=== PATIENT | male | born 1960 | race Caucasian/White ===

== ENCOUNTER 2019-03-13 06:56 | Day surgery (SDC) | payer MEDICARE ==
--- OUTSIDE RECORDS SUMMARY | 2019-03-13 07:07 | XMS REPORT | Continuity of Care Document ---
:1960 Author Organization [facility] Care Team Providers Name Role Phone [facility] Unavailable Unavailable Problems Problem Status Onset Classification Date Comments Source Date Reported Right sided 09/14/19 09/17/2018 abdominal pain 19 [place] Abdominal 09/14/19 09/17/2018 distension 19 [place] WOUND CARE Active 09/14/19 19 [place] Other specified 03/28/20 10/07/2018 pleural 18 [place] conditions Cellulitis of 03/24/20 10/05/2018 [facility] abdominal wall 18 Cellulitis 03/18/20 10/05/2018 [place] 18 ABCESS Active 03/18/20 [facility] [address] SENT Active 03/18/20 18 [place] LOCULATED PLEURAL Active 03/18/20 EFFUSION 18 [place] TAPPED Active 02/02/20 [facility] [place] DECOMPENSATED Active 02/02/20 HEPATIC 18 [facility] CIRRHOSIS, CIRRHOS ASCITES SOB Active 03/22/20 [facility] [address] LOWER LOBE Active 03/22/20 [facility] PNEUMONIA [address] [place] UNSPECIFIED Active 10/16/19 [facility] CIRRHOSIS OF [address] [place] [address] B18.2 - CHRONIC Active 09/30/19 [facility] VIRAL HEPATITIS C 16 [facility] OPID [place] HEP C Active 09/26/[address] F/U Active 09/26/[address] TWO WKS F/U Active 09/12/[address] BDDC - CLINIC Active 06/04/20 [facility] FOLLOW [facility] HOSPITAL FOLLOW Active 05/22/20 [facility] BEDDED Active 05/22/20 [facility] OUTPATIENT/THERAP [address] [place] [address] [facility] Center SPONTANEOUS Active 05/07/20 [facility] PARACENTESIS [address] [place] [address] Ascites Resolved Problem 10/07/2018 [facility] Cirrhosis of Active Problem 10/07/2018 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 varices [facility], [place],M EDDC Family history of Active Problem 10/07/2018 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 encephalopathy [facility], [place],M EDDC Hepatitis-C Active Problem 10/07/2018 [facility], [place],[facility] EDMO Obesity Active Problem 10/07/2018 [facility], [place] Peripheral edema Active Problem 10/07/2018 [facility], [place] Other mechanical 10/07/2018 complication of [place] other cardiac and vascular devices and implants, initial encounter Acute kidney 10/07/2018 failure, [place] unspecified Other ascites 10/07/2018 [place] Esophageal 10/07/2018 varices without [place] bleeding Portal 10/07/2018 hypertension [place] Body mass index 10/07/2018 40.0-44.9, adult [place] Unspecified viral 10/07/2018 hepatitis C [place], without hepatic [place] coma Other cirrhosis 10/07/2018 of liver [place] Unspecified 10/07/2018 cirrhosis of [place], liver [place] Rash and other 10/07/2018 nonspecific skin [place] eruption Awaiting organ 10/07/2018 transplant status [place] Hypertensive 10/07/2018 chronic kidney [place] disease with stage 1 through stage 4 chronic kidney disease, or unspecified chronic kidney disease Chronic kidney 10/07/2018 disease, stage 2 [place] Nicotine 10/07/2018 dependence, [place], cigarettes, [place] uncomplicated Gastric varices 10/07/2018 [place] Splenomegaly, not 10/07/2018 elsewhere [place] classified Diaphragmatic 10/07/2018 hernia without [place] obstruction or gangrene Morbid obesity 10/07/2018 due to excess [place] calories FOOD/VOMIT Active 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, Stop date: 09/14/18 9:39:00 CSTNotes: SEE RT DOCUMENTATION (Same as: Proventil) Acetaminophen 300 1 tab, PO, No Longer MG / Codeine Q6H, PRN Pain, Active 2017 [facility] Phosphate 30 MG X 7 day, # 28 Oral Tablet tab, 0 [Tylenol with Refill(s), Codeine #3] called to pharmacy Nystatin [id number] 1 appl, TOP, Active UNT/ML / TID, # 30 gm, 2017 [facility] Triamcinolone 0 Refill(s), Acetonide 1 MG/ML Pharmacy: [facility] [place] [address] Furosemide 40 MG 80 mg, 2 tab, Inactive Oral Tablet Route: PO, 2017 [facility] [Lasix] Drug form: TAB, Daily, Dosing Weight 143.182, kg, Start date: 03/20/18 14:00:00 CDT, Duration: 30 day, Stop date: 04/19/18 9:00:00 CDTNotes: (Same as: Lasix) May cause GI upset. Give with food or milk. Spironolactone 100 mg, 2 tab, Inactive Route: PO, 2017 [facility] Drug form: TAB, Daily, Dosing Weight 143.182, kg, Start date: 03/20/18 14:00:00 CDT, Duration: 30 day, Stop date: 04/19/18 9:00:00 CDTNotes: (Same As: Aldactone) rifaximin 550 mg, 1 tab, No Longer Route: PO, Active 2017 [facility] Drug form: TAB, [id number], Dosing Weight 143.182, kg, Start date: 03/19/18 19:00:00 CDT, Duration: 30 day, Stop date: 04/18/18 7:00:00 CDTNotes: Same as: Xifaxan Nystatin [id number] 1 appl, Route: No Longer UNT/ML / TOP, TID, Drug Active 2017 [facility] Triamcinolone form: CRM, Acetonide 1 MG/ML Start date: Topical Cream 03/19/18 13:00:00 CDT, Duration: 30 day, Stop date: 04/18/18 9:00:00 CDTNotes: (nystatin-tria mcinolone 898219 units/g-0.1% top CRM 60 gm ) Lactulose 667 20 gm, 30 mL, Inactive 03/19/ MH MG/ML Oral Route: PO, 2017 [facility] Solution Drug form: SYRP, Daily, Dosing Weight 143.182, kg, Start date: 03/19/18 12:00:00 CDT, Duration: 30 day, Stop date: 04/17/18 12:00:00 CDTNotes: (Same as:Chronulac) lactulose 10 g/15 20 gm, 30 mL, No Longer 03/19/ MH mL oral syrup Route: PO, Active 2017 [facility] Drug form: SYRP, Daily, Dosing Weight 143.182, kg, Start date: 03/19/18 12:00:00 CDT, Duration: 30 day, Stop date: 04/17/18 12:00:00 CDTNotes: (Same as:Chronulac) tramadol 50 mg, PO, No Longer 03/19/ MH hydrochloride 50 Q6H, PRN Pain Active 2017 [place] MG Oral Tablet Score 1-3, # 28 tab, 0 Refill(s) tramadol 50 mg, 1 tab, No Longer 0805/ MH hydrochloride 50 Route: PO, Active 2017 [place] MG Oral Tablet Drug form: TAB, Q6H, Dosing Weight 143.182, kg, PRN Pain Score 1-3, Start date: 03/19/18 11:17:00 CDT, Duration: 30 day, Stop date: 04/18/18 11:16:00 CDTNotes: Not to exceed 400mg/day. (Same As: Ultram) Albuterol 0.833 3 mL, Route: No Longer 03/19/ MH MG/ML / NEB, Drug Active 2017 [facility] Ipratropium Form: SOLN, [place] 0.167 Dosing Weight MG/ML Inhalant 143.182, kg, Solution Q4H, PRN Wheezing, Start date: 03/19/18 9:48:00 CDT, Duration: 30 day, Stop date: 04/18/18 9:47:00 CDTNotes: (Same as: Duoneb) Ceftriaxone 1 gm, Route: No Longer IVPB, [id number], Active 2017 [facility] Dosing Weight 143.182, kg, Start date: 03/18/18 20:00:00 CDT, Duration: 30 day, Stop date: 04/16/18 20:00:00 CDT, ABX Indication: Intra-abdomina l InfectionNotes : (Same As: Rocephin). Use with 100 mL NS and infuse over 30 min MEDICATION WASTE Product Size: 1000 mg Product Wasted: ___ mg Enoxaparin 40 mg, 0.4 mL, No Longer Route: SUB-Q, 2017 [facility] Drug form: INJ, [id number], Dosing Weight 141.364, kg, Consider for obese patients, Start date: 03/18/18 17:00:00 CDT, Stop date: 04/17/18 5:00:00 CDTNotes: (Same as: Lovenox) Furosemide 40 MG 80 mg=2 tab, Active Oral Tablet PO, Daily, 0 2017 [facility] [Lasix] Refill(s) Lactulose 667 20 gm=30 mL, Active MG/ML Oral PO, QPM, PRN 2017 [facility] Solution as needed for constipation, 0 Refill(s) spironolactone 100 100 mg=1 tab, Active mg oral tablet PO, Daily, 0 2017 [facility] Refill(s) Ondansetron 4 mg, 2 mL, No Longer Route: IVP, 2017 [facility] Drug form: INJ, Q6H, Dosing Weight 141.364, kg, PRN Nausea & Vomiting, Start date: 03/18/18 16:15:00 CDT, Duration: 30 day, Stop date: 04/17/18 16:14:00 CDTNotes: (Same as: Zofran) MEDICATION WASTE Product Size: 4 mg Product Wasted: ___ mg albumin human 25% 25 gm, 100 mL, Inactive intravenous Route: IVPB, 2017 [facility] solution Drug form: INJ, ONCE, Dosing Weight 141.364, kg, Start date: 03/18/18 16:12:00 CDT, Stop date: 03/18/18 16:12:00 CDTNotes: Lot #: Mfg: (Same as: Plasbumin-25) "blood product derivative" WASTE: F/P - Red; E -Red MEDICATION WASTE Product Size: 25 gm Product Wasted: ___ gm albumin human 25% 25 gm, 100 mL, Inactive intravenous Route: IVPB, 2017 [facility] solution Drug form: INJ, ONCE, Dosing Weight 141.364, kg, Start date: 03/18/18 15:43:00 CDT, Stop date: 03/18/18 15:43:00 CDTNotes: Lot #: Mfg: (Same as: Plasbumin-25) "blood product derivative" WASTE: F/P - Red; E -Red MEDICATION WASTE Product Size: 25 gm Product Wasted: ___ gm Saline Flush 0.9% 10 mL, Route: No Longer IVP, Drug Active 2017 [facility] Form: INJ, Dosing Weight 141.364, kg, PRN, PRN Line Flush, Start date: 03/18/18 11:33:00 CDT, Duration: 30 day, Stop date: 04/17/18 11:32:00 CDTNotes: (Same as: BD Posiflush) Cephalexin 500 MG 500 mg=1 cap, No Longer Oral Capsule PO, QID, X 7 Active 2017 [place] [Keflex] day, # 28 cap, 0 Refill(s) Acetaminophen 300 1 tab, Route: Inactive MG / Codeine PO, Drug Form: 2017 [place] Phosphate 30 MG TAB, Dosing Oral Tablet Weight [Tylenol with 150.065, kg, Codeine #3] ONCE, STAT, Start date: 03/18/18 9:02:00 CDT, Stop date: 03/18/18 9:02:00 CDTNotes: Do not exceed 4gm/day of acetaminophen. (Same as: Tylenol with Codeine # 3) Lactulose 667 20 gm=30 mL, Active 06/21/ MH MG/ML Oral PO, BID, PRN 2018 [facility] Solution constipation, 0 Refill(s) Lactulose 667 20 gm=30 mL, Inactive 06/21/ MH MG/ML Oral PO, BID, PRN 2018 [facility] Solution constipation, # 1,000 mL, 0 Refill(s), Pharmacy: [place] [address] spironolactone 100 100 mg=1 tab, Active 06/21/ MH mg oral tablet PO, BID, # 60 2018 [place] tab, 0 Refill(s), Pharmacy: [place] [address] Furosemide 20 MG 80 mg=4 tab, Active // MH Oral Tablet PO, Daily, # 2018 [Lasix] 30 tab, 0 Refill(s), Pharmacy: [place] [address] Albuterol 0.833 3 mL, Active 06/21/ MH MG/ML / INHALATION, 2017 [facility] Ipratropium Q4H, PRN [place] 0.167 Wheezing, # 30 MG/ML Inhalant ea, 1 Solution Refill(s) Ipratropium 2 spray, Each Active 02/02/ MH [place] 0.021 Affected 2017 [facility] MG/ACTUAT Metered Nostril, TID, Dose Nasal Brutus # 30 ml, 0 Refill(s) spironolactone 100 100 mg=1 tab, Inactive 06/21/ MH mg oral tablet PO, BID, # 30 2018 [place] tab, 0 Refill(s) Lactulose 667 20 gm=30 mL, Inactive 06/21/ MH MG/ML Oral PO, BID, PRN 2017 [facility] Solution constipation, 0 Refill(s) Lactulose 667 20 gm, 30 ml, Inactive 06/21/ MH MG/ML Oral Route: PO, 2017 [facility] Solution Drug form: SYRP, TID, Dosing Weight 151.2, kg, Start date: 02/02/18 9:00:00 CDT, Duration: 30 day, Stop date: 03/03/18 17:00:00 CDTNotes: (Same as:Chronulac) Albuterol 0.833 3 ml, Route: Inactive 06/21/ MH MG/ML / NEB, Drug 2017 [facility] Ipratropium Form: SOLN, [place] 0.167 Dosing Weight MG/ML Inhalant 151.2, kg, Solution [DuoNeb] PRN, PRN Respiratory Pathway, Start date: 02/02/18 1:33:00 CDT, Duration: 30 day, Stop date: 03/04/18 1:32:00 CDTNotes: (Same as: Duoneb) Acetaminophen 325 2 tab, Route: Inactive MG / Hydrocodone PO, Drug Form: 2017 [facility] Bitartrate 5 MG TAB, Dosing Oral Tablet Weight 151.2, kg, Q4H, PRN Pain Score 7-10, Start date: 02/02/18 1:33:00 CDT, Duration: 30 day, Stop date: 03/04/18 1:32:00 CDTNotes: (Same as: [place] 325/5) Do not exceed 4gm/day of acetaminophen. Ondansetron 4 mg, 2 mL, Inactive Route: IVP, 2017 [facility] Drug form: INJ, Q6H, Dosing Weight 151.2, kg, PRN Nausea & Vomiting, Start date: 02/02/18 1:33:00 CDT, Duration: 30 day, Stop date: 03/04/18 1:32:00 CDTNotes: (Same as: Zofran) MEDICATION WASTE Product Size: 4 mg Product Wasted: ___ mg Acetaminophen 325 1 tab, Route: Inactive MG / Hydrocodone PO, Drug Form: 2017 [place] Bitartrate 5 MG TAB, Dosing Oral Tablet [[place] Weight 151.2, 5/325] kg, ONCE, STAT, Start date: 02/01/18 23:03:00 CDT, Stop date: 02/01/18 23:03:00 CDT Lasix 80 mg, 8 mL, Inactive Route: IVP, 2017 [place] Drug form: INJ, ONCE, Dosing Weight 151.2, kg, Priority: STAT, Start date: 02/01/18 22:21:00 CDT, Stop date: 02/01/18 22:21:00 CDTNotes: (Same as: Lasix) MEDICATION WASTE Product Size: 40 mg Product Wasted: ___ mg Levofloxacin 500 mg, 100 Inactive mL, Route: 2018 [place] IVPB, Drug form: SOLN, ONCE, Dosing Weight 151.2, kg, Start date: 02/01/18 22:20:00 CDT, Stop date: 02/01/18 22:20:00 CDT, ABX Indication: PneumoniaNotes : (Same as:Levaquin) Spironolactone 300 mg, Route: No Longer PO, Drug form: Active 2016 [place] TAB, Daily, Dosing Weight 81.818, kg, Start date: 03/24/17 9:00:00 CDT, Duration: 30 day, Stop date: 04/22/17 9:00:00 CDT Lasix 40 mg, Route: Inactive IVP, Drug 2016 [place] form: INJ, Q12H, Dosing Weight 81.818, kg, Start date: 03/23/17 21:00:00 CDT, Duration: 7 day, Stop date: 03/30/17 9:00:00 CDT Ipratropium 0.5 mg, 2.5 Inactive [place] 0.2 MG/ML mL, Route: 2016 [place] Inhalant Solution NEB, Drug form: SOLN, RQID, Dosing Weight 81.818, kg, Start date: 03/23/17 19:00:00 CDT, Duration: 30 day, Stop date: 04/22/17 15:00:00 CDTNotes: SEE RT DOCUMENTATION (Same as:Atrovent) Lactulose 667 20 gm, 30 mL, Inactive MG/ML Oral Route: PO, 2016 [place] Solution Drug form: SYRP, BID, Dosing Weight 81.818, kg, Start date: 03/23/17 17:00:00 CDT, Duration: 30 day, Stop date: 04/22/17 9:00:00 CDTNotes: (Same as:Chronulac) Xopenex 0.63 mg, Inactive Route: NEB, 2016 [place] Drug form: SOLN, Q8H, Dosing Weight 81.818, kg, Start date: 03/23/17 16:00:00 CDT, Duration: 30 day, Stop date: 04/22/17 8:00:00 CDT Lasix 60 mg, 6 mL, Inactive Route: IVP, 2016 [place] Drug form: INJ, Q8H, Dosing Weight 81.818, kg, Start date: 03/23/17 16:00:00 CDT, Duration: 30 day, Stop date: 04/22/17 8:00:00 CDTNotes: (Same as: Lasix) MEDICATION WASTE Product Size: 40 mg Product Wasted: ___ mg albumin human 25% 25 gm, 100 mL, Inactive intravenous Route: IVPB, 2016 [place] solution Drug form: INJ, Q8H, Dosing Weight 81.818, kg, Start date: 03/23/17 16:00:00 CDT, Duration: 6 doses or times, Stop date: 03/25/17 8:00:00 CDTNotes: Lot #: Mfg: (Same as: Plasbumin-25) "blood product derivative" WASTE: F/P - Red; E -Red MEDICATION WASTE Product Size: 25 gm Product Wasted: ___ gm Symbicort 160/4.5 2 inhalation, Inactive inhalation aerosol Route: 2016 [place] with adapter INHALATION, Drug Form: AERO/A, Dosing Weight 81.818, kg, RBID, Start date: 03/23/17 15:35:00 CDT, Duration: 30 day, Stop date: 04/22/17 8:00:00 CDTNotes: (Same as: Symbicort) WASTE: Aerosol - Return to Pharmacy Xopenex 0.63 mg, 3 mL, Inactive Route: NEB, 2016 [place] Drug form: SOLN, RQID, Dosing Weight 81.818, kg, Start date: 03/23/17 15:00:00 CDT, Duration: 30 day, Stop date: 04/22/17 11:00:00 CDTNotes: SEE RT DOCUMENTATION (Same as:Xopenex) Non-Formulary Spironolactone 100 mg, 2 tab, Inactive Route: PO, 2016 [place] Drug form: TAB, TID, Dosing Weight 81.818, kg, Start date: 03/23/17 13:00:00 CDT, Duration: 30 day, Stop date: 04/22/17 9:00:00 CDTNotes: (Same As: Aldactone) Albuterol 0.833 3 ml, Route: Inactive MG/ML / NEB, Drug 2016 [place] Ipratropium Form: SOLN, [place] 0.167 Dosing Weight MG/ML Inhalant 81.818, kg, Solution [DuoNeb] QID, Start date: 03/23/17 13:00:00 CDT, Duration: 7 day, Stop date: 03/30/17 9:00:00 CDTNotes: (Same as: Duoneb) Xopenex 0.63 mg, 3 mL, Inactive Route: 2016 [place] Drug form: SOLN, PRN, Dosing Weight 81.818, kg, PRN Respiratory Protocol, Start date: 03/23/17 11:26:00 CDT, Duration: 30 day, Stop date: 04/22/17 11:25:00 CDTNotes: SEE RT DOCUMENTATION (Same as:Xopenex) Non-Formulary Lactulose 667 20 gm=30 mL, On Hold MG/ML Oral PO, BID, 0 2016 [place] Solution Refill(s) spironolactone 100 300 mg=3 tab, On Hold mg oral tablet PO, Daily, 0 2016 [place] Refill(s) methylPREDNISolone 40 mg, 1 mL, Inactive SODium SUCCinate Route: IVP, 2016 [place] Drug form: INJ, Q12H, Dosing Weight 81.818, kg, Start date: 03/23/17 9:00:00 CDT, Duration: 30 day, Stop date: 04/21/17 21:00:00 CDTNotes: (Same as:Solu-MEDROL , A-Methapred) Xopenex 0.63 mg, 3 mL, Inactive Route: 2016 [place] Drug form: SOLN, PRN, Dosing Weight 81.818, kg, PRN Wheezing, Start date: 03/23/17 7:42:00 CDT, Duration: 30 day, Stop date: 04/22/17 7:41:00 CDTNotes: SEE RT DOCUMENTATION (Same as:Xopenex) Non-Formulary albuterol 1.25 mg, 3 mL, Inactive Route: NEB2016 [place] Drug form: SOLN, PRN, PRN See Respiratory Notes, Start date: 03/23/17 7:02:00 CDT, Duration: 30 day, Stop date: 04/22/17 7:01:00 CDTNotes: SEE RT DOCUMENTATION (Same as: Proventil) Xopenex 0.63 mg, Inactive Route: NEB2016 [place] PRN, Dosing Weight 81.818, kg, PRN Wheezing, Start date: 03/23/17 6:47:00 CDT, Duration: 30 day, Stop date: 04/22/17 6:46:00 CDT Lasix 40 mg, 4 mL, Inactive Route: IVP, 2016 [place] Drug form: INJ, ONCE, Dosing Weight 81.818, kg, Start date: 03/23/17 6:45:00 CDT, Stop date: 03/23/17 6:45:00 CDTNotes: (Same as: Lasix) MEDICATION WASTE Product Size: 40 mg Product Wasted: ___ mg Albuterol 0.833 3 ml, Route: Inactive MG/ML / NEB, Drug 2016 [place] Ipratropium Form: SOLN, [place] 0.167 Dosing Weight MG/ML Inhalant 81.818, kg, Solution [DuoNeb] PRN, PRN Respiratory Protocol, Start date: 03/23/17 1:17:00 CDT, Duration: 30 day, Stop date: 04/22/17 1:16:00 CDTNotes: (Same as: Duoneb) Albuterol 0.833 3 ml, Route: Inactive MG/ML / NEB, Drug 2016 [place] Ipratropium Form: SOLN, [place] 0.167 Dosing Weight MG/ML Inhalant 81.818, kg, Solution PRN, PRN Respiratory Protocol, Start date: 03/23/17 0:53:00 CDT, Duration: 30 day, Stop date: 04/22/17 0:52:00 CDTNotes: (Same as: Duoneb) Azithromycin 500 mg, 2 tab, Inactive Route: PO, 2016 [place] Drug form: TAB, [id number], Dosing Weight 81.818, kg, Start date: 03/23/17 0:00:00 CDT, Duration: 7 day, Stop date: 03/29/17 0:00:00 CDT, ABX Indication: PneumoniaNotes : Take 1 hour before or 2 hours after meals. (Same As: Zithromax) Ceftriaxone 1 gm, Route: Inactive IVPB, [id number], 2016 [place] Dosing Weight 81.818, kg, Start date: 03/23/17 0:00:00 CDT, Duration: 7 day, Stop date: 03/29/17 0:00:00 CDT, ABX Indication: PneumoniaNotes : (Same As: Rocephin). Use with 100 mL NS and infuse over 30 min MEDICATION WASTE Product Size: 1000 mg Product Wasted: ___ mg Acetaminophen 650 mg, 2 tab, No Longer Route: PO, Active 2016 [place] Drug form: TAB, Q4H, Dosing Weight 81.818, kg, PRN Pain 1-3/Temp > 100.4 F, Start date: 03/22/17 23:25:00 CDT, Duration: 30 day, Stop date: 04/21/17 23:24:00 CDTNotes: Do not exceed 4 gm/day. (Same as: Tylenol) Acetaminophen 325 1 tab, Route: No Longer MG / Hydrocodone PO, Drug Form: Active 2016 [place] Bitartrate 5 MG TAB, Dosing Oral Tablet Weight 81.818, kg, Q4H, PRN Pain Score 4-6, Start date: 03/22/17 23:25:00 CDT, Duration: 30 day, Stop date: 04/21/17 23:24:00 CDTNotes: (Same as: [place] 325/5) Do not exceed 4gm/day of acetaminophen. Morphine 4 mg, 1 mL, No Longer Route: IVP, Active 2016 [place] Drug form: INJ, Q4H, Dosing Weight 81.818, kg, PRN Pain Score 7-10, Start date: 03/22/17 23:25:00 CDT, Duration: 30 day, Stop date: 04/21/17 23:24:00 CDTNotes: (Same as:MORPhine Sulfate) Ondansetron 4 mg, 2 mL, No Longer Route: IVP, Active 2016 [place] Drug form: INJ, Q6H, Dosing Weight 81.818, kg, PRN Nausea & Vomiting, Start date: 03/22/17 23:25:00 CDT, Duration: 30 day, Stop date: 04/21/17 23:24:00 CDTNotes: (Same as: Zofran) MEDICATION WASTE Product Size: 4 mg Product Wasted: ___ mg Clindamycin 600 mg, 50 mL, Inactive Route: IV, 2016 [place] Drug form: INJ, ONCE, Dosing Weight 81.818, kg, Start date: 03/22/17 17:18:00 CDT, Stop date: 03/22/17 17:18:00 CDT, ABX Indication: Pneumonia Clindamycin 600 mg, Route: Inactive IM, ONCE, 2016 [place] Dosing Weight 81.818, kg, Priority: STAT, Start date: 03/22/17 17:14:00 CDT, Duration: 1 doses or times, Stop date: 03/22/17 17:14:00 CDT, ABX Indication: Pneumonia Zofran 4 mg, 2 mL, Inactive Route: IVP, 2016 [place] Drug form: INJ, ONCE, Dosing Weight 81.818, kg, Priority: STAT, Start date: 03/22/17 17:13:00 CDT, Stop date: 03/22/17 17:13:00 CDTNotes: (Same as: Zofran) MEDICATION WASTE Product Size: 4 mg Product Wasted: ___ mg Morphine 2 mg, 1 mL, Inactive Route: IVP, 2016 [place] Drug form: SOLN, ONCE, Dosing Weight 81.818, kg, Priority: STAT, Start date: 03/22/17 17:12:00 CDT, Stop date: 03/22/17 17:12:00 CDT methylPREDNISolone 125 mg, 2 mL, Inactive SODium SUCCinate Route: IVP, 2016 [place] Drug form: INJ, ONCE, Dosing Weight 81.818, kg, Priority: STAT, Start date: 03/22/17 17:11:00 CDT, Stop date: 03/22/17 17:11:00 CDTNotes: (Same as:Solu-MEDROL , A-Methapred) Albuterol 0.833 3 mL, Route: Inactive MG/ML / NEB, Drug 2016 [place] Ipratropium Form: SOLN, [place] 0.167 Dosing Weight MG/ML Inhalant 81.818, kg, Solution ONCE, STAT, Start date: 03/22/17 17:10:00 CDT, Stop date: 03/22/17 17:10:00 CDTNotes: (Same as: Duoneb) cefepime 1 gm, Route: Inactive IVPB, ONCE, 2016 [place] Dosing Weight 81.818, kg, Priority: STAT, Start date: 03/22/17 17:10:00 CDT, Duration: 1 doses or times, Stop date: 03/22/17 17:10:00 CDT, ABX Indication: PneumoniaNotes : (Same As: Maxipime) MEDICATION WASTE Product Size: 1000 mg Product Wasted: ___ mg Vancomycin 2,000 mg, Inactive Route: IVPB, 2016 [place] ONCE, Dosing Weight 81.818, kg, Priority: STAT, Start date: 03/22/17 17:09:00 CDT, Duration: 1 doses or times, Stop date: 03/22/17 17:09:00 CDT, ABX Indication: PneumoniaNotes : TIME CRITICAL MEDICATION (Same As: Vancocin) Infusion rate 2001 mg: infuse over 2.5 hours MEDICATION WASTE Product Size: 1000 mg Product Wasted: ___ mg Lasix 40 mg, 4 mL, Inactive Route: IVP, 2016 [place] Drug form: INJ, ONCE, Dosing Weight 81.818, kg, Priority: STAT, Start date: 03/22/17 16:36:00 CDT, Stop date: 03/22/17 16:36:00 CDTNotes: (Same as: Lasix) MEDICATION WASTE Product Size: 40 mg Product Wasted: ___ mg Albuterol 0.833 3 mL, Route: Inactive MG/ML / NEB, Drug 2017 [place] Ipratropium Form: SOLN, [place] 0.167 Dosing Weight MG/ML Inhalant 81.818, kg, Solution ONCE, STAT, Start date: 03/22/17 16:35:00 CDT, Stop date: 03/22/17 16:35:00 CDTNotes: (Same as: Duoneb) lactulose 20 g See Active [facility] oral powder Instructions, 2016 [facility] 20gm/ BID, # Center 60 ea, 5 Refill(s), Pharmacy: [facility]/pharmacy #[id number] Lactulose 667 10 gm=15 mL, Inactive [place] MG/ML Oral PO, Daily, 0 2015 [facility] Solution Refill(s) Center Furosemide 20 MG 60 mg=3 tab, Active [facility] Oral Tablet PO, Daily, 0 2016 Medical [Lasix] Refill(s) Center ledipasvir 90 MG / 0 Refill(s) Active [facility] sofosbuvir 400 MG 2016 Medical Oral Tablet Center [Harvoni] Folic Acid 1 MG 1 mg=1 tab, Active [facility] Oral Tablet PO, Daily, # 2016 Medical 30 tab, 6 Center Refill(s), Pharmacy: [facility]/pharmacy #[id number] Hepatitis B 10 microgram, Inactive [facility] Surface Antigen 1 mL, Route: 2014 Medical Vaccine 0.01 MG/ML IM, ONCE, Center Injectable Dosing Weight Suspension 95, kg, Start date: 08/12/15 9:51:00, Duration: 0, Stop date: 08/12/15 9:51:00 spironolactone 50 100 mg=2 tab, Active [place] mg oral tablet PO, Daily, # 2014 Medical 60 tab, 3 Center Refill(s), Pharmacy: [facility]/pharmacy #[id number] Furosemide 20 MG 80 mg=4 tab, Active [facility] Oral Tablet PO, Daily, # 2014 Medical 120 tab, 3 Center Refill(s), Pharmacy: [facility]/pharmacy #[id number] Lactulose 667 30 gm=45 mL, Active [place] MG/ML Oral PO, BID, X 30 2014 Medical Solution day, # 2700 Center mL, 3 Refill(s), Pharmacy: [facility]/pharmacy #[id number] rifaximin 550 MG 550 mg=1 tab, Active [place] Oral Tablet PO, BID, # 60 2014 Medical [XIFAXAN] tab, 6 Center Refill(s), Pharmacy: [facility]/pharmacy #[id number] oxyCODONE 5 mg 5 mg=1 tab, Active [facility] oral tablet PO, Q6H, PRN 2015 Medical Pain, X 7 day, Center # 28 tab, 0 Refill(s), given to patient spironolactone 100 100 mg=1 tab, Active [place] mg oral tablet PO, Daily, 0 2015 Medical Refill(s) Center 24 HR Nicotine =1 patch, TOP, Active [place] 0.875 MG/HR Daily, X 30 2014 Medical Transdermal Patch day, # 30 Center [Nicoderm C-Q] patch, 0 Refill(s) spironolactone 100 300 mg, PO, Active [facility] mg oral tablet Daily, # 90 2015 Medical tab, 2 Center Refill(s) buPROPion 150 mg 150 mg=1 tab, Active [facility] oral tablet, PO, Daily, # 2015 Medical extended release 60 tab, 2 Center Refill(s) tramadol 50 mg=1 tab, Active [place] hydrochloride 50 PO, Q4H, PRN 2015 Medical MG Oral Tablet Pain Score Center 1-3, # 30 tab, 0 Refill(s) Lactulose 667 30 gm=45 mL, Active [place] MG/ML Oral PO, BID, # 3 2014 Medical Solution btl, 0 Center Refill(s) furosemide 80 mg 80 mg=1 tab, Active [facility] oral tablet PO, Daily, # 2015 Medical 90 tab, 3 Center Refill(s) Promethazine 6.25 mg, Inactive [facility] Route: IVPB, 2014 Medical ONCE, Dosing Center Weight 76.2, kg, PRN Nausea & Vomiting, Start date: 05/12/15 12:57:00 Ondansetron 4 mg, Route: Inactive [facility] IVP, ONCE, 2014 Medical Dosing Weight Center 76.2, kg, PRN Nausea & Vomiting, Start date: 05/12/15 12:57:00 Naloxone 0.04 mg, Inactive [facility] Route: IVP, 2014 Medical Q2MIN, Dosing Center Weight 76.2, kg, PRN Narcotic Reversal, Start date: 05/12/15 12:57:00, Duration: 8 doses or times, Stop date: Limited # of times Flumazenil 0.2 mg, Route: Inactive [facility] IVP, PRN, 2014 Medical Dosing Weight Center 76.2, kg, PRN Benzodiazepine Reversal, Initial dose, Start date: 05/12/15 12:57:00, Duration: 30 day, Stop date: 06/11/15 12:56:00 Oxycodone 10 mg, Route: Inactive [facility] PO, Drug form: 2014 Medical TAB, Q4H, Center Dosing Weight 76.2, kg, PRN Pain Score 7-10, Start date: 05/12/15 12:57:00, Duration: 30 day, Stop date: 06/11/15 12:56:00 Hydromorphone 0.5 mg, Route: Inactive [facility] IVP, Q5Min, 2014 Medical Dosing Weight Center 76.2, kg, PRN Pain Score 7-10, Start date: 05/12/15 12:57:00, Duration: 4 doses or times, Stop date: Limited # of times Meperidine 12.5 mg, Inactive [facility] Route: IVP, 2014 Medical Q30Min, Dosing Center Weight 76.2, kg, PRN Other -See Comment, For shivering, Start date: 05/12/15 12:57:00, Duration: 2 doses or times, Stop date: Limited # of times Ancef 2 gm, Route: Inactive [facility] IVPB, ONCE, 2014 Medical Dosing Weight Center 76.2, kg, Start date: 05/12/15 11:55:00, Stop date: 05/12/15 11:55:00 Albumin Human, CARE HOME 100 gm, 400 Inactive [facility] 250 MG/ML mL, Route: IV, 2014 Medical Injectable Drug form: [place] Solution INJ, ONCE, Dosing Weight 76.2, kg, Start date: 05/12/15 9:56:00, Stop date: 05/12/15 9:56:00Notes: Lot #: Mfg: (Same as: Plasbumin-25) "blood product derivative" MEDICATION WASTE Product Size: 25 gm Product Wasted: ___ gm Lactulose 30 gm, 45 mL, No Longer [place] Route: PO, Active 2014 Medical Drug Form: [place] SYRP, kg, BID, Start date: 05/11/15 17:00:00, Duration: 30 day, Stop date: 06/10/15 9:00:00Notes: (Same as:Chronulac) D5W 1/2NS + KCL 1,000 mL, No Longer [place] 20mEq/L 1000ml Rate: 75 Active 2014 Medical (Premix) 1,000 mL ml/hr, Infuse [place] over: 13.3 hr, Route: IV, Dosing Weight 76.2 kg, Total Volume: 1,000, Start date: 05/11/15 11:37:00, Stop date: 06/11/15 0:01:00Notes: PREMIX IV - Do Not Alter Wellbutrin SR 150 mg, 1 tab, No Longer [place] Route: PO, Active 2014 Medical Drug form: [place] ERTAB, Daily, Dosing Weight 76.2, kg, Start date: 05/11/15 9:00:00, Duration: 30 day, Stop date: 06/09/15 9:00:00Notes: (Do not crush) (Same As: Wellbutrin SR) Benadryl 50 mg, 1 cap, No Longer [place] Route: PO, Active 2014 Medical Drug form: [place] CAP, BID, Dosing Weight 76.2, kg, PRN Allergic reaction, Start date: 05/10/15 21:05:00, Duration: 30 day, Stop date: 06/09/15 21:04:00Notes: (Same as: Benadryl) heparin 5,000 unit, 1 No Longer [facility] mL, Route: Active 2014 Medical SUB-Q, Drug Center form: INJ, Q8H, Dosing Weight 76.2, kg, Start date: 05/10/15 16:00:00, Duration: 30 day, Stop date: 06/09/15 8:00:00Notes: porcine heparin Fluzone 0.5 mL, Route: Inactive [facility] Preservative-Free IM, Drug Form: 2014 Medical Quadrivalent SUSP, Daily, Center [id number] Start date: 05/10/15 10:00:00, Duration: 1 doses or times, Stop date: 05/10/15 10:00:00Notes: (Same as: Fluzone Quadrivalent) For 3 years of age and older (0.5 mL IM) Dilaudid 0.2 mg, 0.1 No Longer [facility] mL, Route: IV, Active 2014 Medical Drug form: Center INJ, Q3H, Dosing Weight 76.2, kg, PRN Pain Score 7-10, Start date: 05/09/15 21:03:00, Duration: 30 day, Stop date: 06/08/15 21:02:00Notes: Same as: Dilaudid rifaximin 550 mg, 1 tab, No Longer [facility] Route: PO, Active 2014 Medical Drug form: Center TAB, Q12H, Dosing Weight 76.2, kg, Start date: 05/09/15 21:00:00, Duration: 30 day, Stop date: 06/08/15 9:00:00Notes: Same as: Xifaxan GI cocktail 30 ml, Route: Inactive [facility] PO, Drug Form: 2014 Medical SUSP, Dosing Center Weight 76.2, kg, ONCE, NOW, Start date: 05/09/15 18:13:00, Stop date: 05/09/15 18:13:00Notes: G.I. Cocktail=antac id with simethicone 22.5 mL - lidocaine viscous 7.5 mL Albumin Human, CARE HOME 25 gm, 100 mL, Inactive [facility] 250 MG/ML Route: IVPB, 2014 Medical Injectable Drug form: [facility] Solution INJ, Q6H, Dosing Weight 76.2, kg, Start date: 05/09/15 18:00:00, Duration: 6 doses or times, Stop date: 05/11/15 0:00:00Notes: Lot #: Mfg: (Same as: Plasbumin-25) "blood product derivative" MEDICATION WASTE Product Size: 25 gm Product Wasted: ___ gm Albumin Human, CARE HOME 25 gm, 500 mL, No Longer [place] 50 MG/ML Route: IV, Active 2014 Medical Injectable Drug Form: [facility] Solution INJ, Dosing Weight 76.2, kg, Q6H, NOW, Start date: 05/09/15 16:55:00, Duration: 30 day, Stop date: 06/08/15 12:00:00Notes: LOT#: Mfg: (Same as: Albuminar) "blood product derivative" Zofran 4 mg, 2 mL, No Longer [place] Route: IV, Active 2014 Medical Drug form: Center INJ, Q8H, Dosing Weight 76.2, kg, PRN Nausea, Start date: 05/09/15 16:21:00, Duration: 30 day, Stop date: 06/08/15 16:20:00Notes: (Same as: Zofran) MEDICATION WASTE Product Size: 4 mg Product Wasted: ___ mg Naloxone 0.04 mg, Inactive [facility] Route: IVP, 2014 Medical Q2MIN, Dosing Center Weight 76.2, kg, PRN Narcotic Reversal, Start date: 05/09/15 15:29:00, Duration: 8 doses or times, Stop date: Limited # of times Hydromorphone 0.5 mg, Route: Inactive [facility] IVP, Q5Min, 2014 Medical Dosing Weight Center 76.2, kg, PRN Pain Score 7-10, Start date: 05/09/15 15:29:00, Duration: 4 doses or times, Stop date: Limited # of times Ondansetron 4 mg, Route: Inactive [facility] IVP, ONCE, 2014 Medical Dosing Weight Center 76.2, kg, PRN Nausea & Vomiting, Start date: 05/09/15 15:29:00 Promethazine 6.25 mg, Inactive [place] Route: IVPB, 2014 Medical ONCE, Dosing Center Weight 76.2, kg, PRN Nausea & Vomiting, Start date: 05/09/15 15:29:00 Flumazenil 0.2 mg, Route: Inactive [place] IVP, PRN, 2014 Medical Dosing Weight Center 76.2, kg, PRN Benzodiazepine Reversal, Initial dose, Start date: 05/09/15 15:29:00, Duration: 30 day, Stop date: 06/08/15 15:28:00 Flagyl 500 mg, 100 No Longer [facility] mL, Route: Active 2014 Medical IVPB, Drug Center form: INJ, [id number], Dosing Weight 76.2, kg, Start date: 05/09/15 15:00:00, Duration: 30 day, Stop date: 06/08/15 9:00:00Notes: (Same as: Flagyl) Avoid alcohol. Ciprofloxacin 400 mg, 200 No Longer [facility] mL, Route: IV, Active 2014 Medical Drug form: Center INJ, [id number], Dosing Weight 76.2, kg, Start date: 05/09/15 14:00:00, Duration: 14 day, Stop date: 05/23/15 2:00:00Notes: Do not refrigerate remove patch 1 patch, No Longer [facility] Route: TOP, Active 2014 Medical Drug form: [place] ERFILM, Daily, Start date: 05/09/15 9:00:00, Duration: 30 day, Stop date: 06/07/15 9:00:00Notes: Remove old patch before application of new patch. influenza virus 0.5 mL, Route: No Longer [place] vaccine, IM, Drug Form: Active 2014 [facility] inactivated SUSP, Daily, Center Start date: 05/09/15 9:00:00, Duration: 1 doses or times, Stop date: 05/09/15 9:00:00Notes: (Same as: Fluzone Quadrivalent) For 3 years of age and older (0.5 mL IM) Shake well before use pneumococcal 0.5 mL, Route: Inactive [facility] capsular IM, Drug Form: 2014 Medical polysaccharide INJ, Daily, Center type 1 vaccine / Start date: pneumococcal 05/09/15 capsular 9:00:00, polysaccharide Duration: 1 type 10A vaccine / doses or pneumococcal times, Stop capsular date: 05/09/15 polysaccharide 9:00:00Notes: type 11A vaccine / (Same as: pneumococcal Pneumovax 23) capsular Refrigerate polysaccharide type 12F vaccine / pneumococcal capsular polysacchar Nicotine 21 mg, 1 No Longer [facility] patch, Route: Active 2014 Medical TOP, Drug Center form: ERFILM, Daily, Dosing Weight 76.2, kg, Start date: 05/09/15 9:00:00, Duration: 30 day, Stop date: 06/07/15 9:00:00Notes: (Same as: Habitrol) "Remove old patch before application of new patch" Spironolactone 300 mg, 6 tab, Inactive [facility] Route: PO, 2014 Medical Drug form: Center TAB, Daily, kg, Start date: 05/09/15 9:00:00, Duration: 30 day, Stop date: 06/07/15 9:00:00Notes: (Same As: Aldactone) Lasix 80 mg, 1 tab, Inactive [facility] Route: PO, 2014 Medical Drug form: Center TAB, Daily, kg, Start date: 05/09/15 9:00:00, Duration: 30 day, Stop date: 06/07/15 9:00:00Notes: (Same as: Lasix) May cause GI upset. Give with food or milk. Albumin Human, CARE HOME 100 gm, 400 Inactive [facility] 250 MG/ML mL, Route: IV, 2014 Medical Injectable Drug form: [place] Solution INJ, ONCE, Dosing Weight 76.2, kg, Priority: STAT, Start date: 05/09/15 8:15:00, Stop date: 05/09/15 8:15:00Notes: Lot #: Mfg: (Same as: Plasbumin-25) "blood product derivative" MEDICATION WASTE Product Size: 25 gm Product Wasted: ___ gm Tramadol 50 mg, 1 tab, No Longer [place] Route: PO, Active 2014 Medical Drug form: [place] TAB, Q4H, Dosing Weight 76.2, kg, PRN Pain Score 1-3, Start date: 05/08/15 22:08:00, Duration: 30 day, Stop date: 06/07/15 22:07:00Notes: Not to exceed 400mg/day. (Same As: Ultram) Lactulose 30 gm, 45 mL, No Longer [place] Route: PO, Active 2014 Medical Drug Form: [place] SYRP, kg, TID, Start date: 05/08/15 13:00:00, Duration: 30 day, Stop date: 06/07/15 9:00:00Notes: (Same as:Chronulac) Albumin Human, CARE HOME 75 gm, 300 mL, Inactive [place] 250 MG/ML Route: IV, 2014 Medical Injectable Drug form: [place] Solution INJ, ONCE, kg, Priority: STAT, Start date: 05/08/15 12:00:00, Stop date: 05/08/15 12:00:00Notes: Lot #: Mfg: (Same as: Plasbumin-25) "blood product derivative" MEDICATION WASTE Product Size: 25 gm Product Wasted: ___ gm Spironolactone 300 mg, PO, No Longer [facility] Daily, # 60 Active 2014 Medical tab, 0 Center Refill(s) Lactulose 30 mg=, PO, No Longer [facility] TID, 0 Active 2014 Medical Refill(s) Center Lasix 80 mg, Daily, No Longer [facility] 0 Refill(s) Active 2014 Medical Center Allergies, Adverse Reactions, Alerts No Known Medication Allergies Immunizations Immunization Date Site Status Last Updated Comments Source Given hepatitis B Left completed Gio [facility] adult vaccine 6 [facility] hepatitis B Right completed Baron [facility] adult vaccine 5 [facility]DC pneumococcal Right completed Sanju [facility] 23-valent 5 deltoid Medical vaccine Center,[facility]DC influenza virus Left completed Paul [facility] vaccine, [facility] inactivated Center,[facility] EDMO Results Order Name Results Value Reference Date Interpretation Comments Source Range BODY Albumin BF 0.7 09/14 FLUIDS [facility] BODY Alb BF Type Ascites 09/14 FLUIDS *NA* [facility] (09/14/18 2:25 PM) BODY LDH BF Type Ascites 09/14 FLUIDS *NA* [facility] (09/14/18 2:25 PM) BODY LDH BF 52 09/14 FLUIDS [facility] BODY Clarity BF Clear Clear 09/14 FLUIDS (09/14/18 2:25 PM) [facility] BODY Color BF Yellow Colorless 09/14 FLUIDS (09/14/18 2:25 PM) [facility] BODY WBC BF 149 09/14 FLUIDS [facility] BODY Lymph BF 53 09/14 FLUIDS [facility] BODY Segs BF 14 09/14 FLUIDS [facility] BODY RBC BF 633 09/14 FLUIDS [facility] BODY CellCnt BF Ascites 09/14 FLUIDS Type (09/14/18 2:25 PM) /2018 [facility] BODY [place] BF Few 09/14 FLUIDS (09/14/18 2:25 PM) [facility] BODY Macrophage 33 09/14 FLUIDS BF [facility] BODY Gluc BF Type Ascites 09/14 FLUIDS *NA* [facility] (09/14/18 2:25 PM) BODY Glucose BF 107 09/14 [facility] Gram Stain No Organisms Seen 09/14 Report No WBC's [facility] Culture: 48 Hour 09/14 Aspirate/Bod Report - /2018 [facility] y No Growth, Fluid/Tissue Holding CHEM PANEL eGFR 38 09/14 Result Comment: The [facility] eGFR is calculated using the CKD-EPI formula. In most young, healthy individuals the eGFR will be >90 mL/min/1.73m2 . The eGFR declines with age. An eGFR of 60-89 may be normal in some populations, particularly the elderly, for whom the CKD-EPI formula has not been extensively validated. Use of the eGFR is not recommended in the following populations:< br/>
Sherice viduals with unstable creatinine concentration s, including patients and those with serious co-morbid conditions.<b r/>
Patie nts with extremes in muscle mass or diet.

The data above are obtained from the National Kidney Disease Education Program (NKDEP) which additionally recommends that when the eGFR is used in patients with extremes of body mass index for purposes of drug dosing, the eGFR should be multiplied by the estimated BMI. CHEM PANEL ALT 21 0 - 65 09/14 [place] CHEM PANEL AST 32 0 - 37 09/14 [place] CHEM PANEL Alk Phos 136 39 - 136 09/14 [place] CHEM PANEL Bili Total 0.9 0.2 - 1.3 09/14 [place] CHEM PANEL BUN 26 7 - 22 09/14 [place] CHEM PANEL Creatinine 1.91 0.50 - 09/14 Lvl 1.40 /2018 [place] CHEM PANEL Glucose Lvl 98 70 - 99 09/14 [place] CHEM PANEL Sodium Lvl 143 135 - 145 09/14 [place] CHEM PANEL Potassium 3.5 3.5 - 5.1 09/14 Lvl /2018 [place] CHEM PANEL Chloride Lvl 109 95 - 109 09/14 [place] CHEM PANEL Albumin Lvl 2.4 3.5 - 5.0 09/14 [place] CHEM PANEL CO2 24 24 - 32 09/14 [place] CHEM PANEL Calcium Lvl 8.5 8.5 - 10.5 09/14 [place] CHEM PANEL Total 6.3 6.4 - 8.4 09/14 Protein [place] CHEM PANEL B/C Ratio 14 6 - 25 09/14 [facility] CHEM PANEL Globulin 3.9 2.7 - 4.2 09/14 [place] CHEM PANEL A/G Ratio 0.6 0.7 - 1.6 09/14 [place] CHEM PANEL AGAP 13.5 10.0 - 09/14 MH 20.0 [facility] HEMATOLOGY Eosinophils 8.6 0.0 - 4.0 09/14 [facility] HEMATOLOGY Basophils 1.0 0.0 - 1.0 09/14 [facility] HEMATOLOGY Lymphocytes 0.5 1.0 - 5.5 09/14 MH # /2019 [facility] HEMATOLOGY Neutrophils 2.4 1.5 - 8.1 09/14 MH # /2019 [facility] HEMATOLOGY Lymphocytes 13.0 20.0 - 09/14 MH 40.0 /2019 [facility] HEMATOLOGY Monocytes 13.9 2.0 - 12.0 09/14 /2018 [facility] HEMATOLOGY Eosinophils 0.3 0.0 - 0.5 09/14 MH # /2019 [facility] HEMATOLOGY Monocytes # 0.5 0.0 - 0.8 09/14 [facility] HEMATOLOGY Microcyte 3+ None Seen 09/14 *NA* /2018 [facility] (09/14/18 9:29 AM) HEMATOLOGY Segs 63.5 45.0 - 09/14 MH 75.0 /2018 [facility] HEMATOLOGY PTT 41.2 22.9 - 09/14 MH 35.8 /2018 [facility] HEMATOLOGY INR 1.23 0.85 - 09/14 MH 1.17 /2018 [facility] HEMATOLOGY PT 15.3 12.0 - 09/14 MH 14.7 /2018 [facility] HEMATOLOGY MCH 20.9 27.0 - 09/14 MH 31.0 /2018 [facility] HEMATOLOGY RDW 17.9 11.5 - 09/14 14.5 /2018 [facility] HEMATOLOGY Platelet 74 133 - 450 09/14 /2018 [facility] HEMATOLOGY MPV 9.5 7.4 - 10.4 09/14 /2018 [facility] HEMATOLOGY MCV 67.4 80.0 - 09/14 MH 94.0 /2018 [facility] HEMATOLOGY MCHC 31.0 32.0 - 09/14 MH 36.0 /2018 [facility] HEMATOLOGY Hct 23.0 42.0 - 09/14 54.0 /2018 [facility] HEMATOLOGY RBC 3.42 4.70 - 09/14 MH 6.10 /2018 [facility] HEMATOLOGY Hgb 7.1 14.0 - 09/14 MH 18.0 /2018 [facility] HEMATOLOGY WBC 3.8 3.7 - 10.4 09/14 /2018 [facility] URINE AND UA Mucus Few /LPF None Seen 09/14 STOOL /LPF /2018 [facility] URINE AND UA Leuk Est Negative Negative 09/14 STOOL (09/14/18 9:29 AM) /2018 [facility] URINE AND UA WBC 2 0 - 5 09/14 STOOL /2018 [facility] URINE AND UA Sq Epi Occasional Few /LPF 09/14 STOOL /LPF [facility] URINE AND UA Glucose Negative Negative 09/14 STOOL *NA* /2018 [facility] (09/14/18 9:29 AM) URINE AND UA Protein Negative Negative 09/14 STOOL (09/14/18 9:29 AM) [facility] URINE AND UA Blood Large Negative 09/14 STOOL *ABN* /2018 [facility] (09/14/18 9:29 AM) URINE AND UA <=1.0 0.1 - 1.0 09/14 STOOL Urobilinogen mg/dL [facility] URINE AND UA Nitrite Negative Negative 09/14 STOOL (09/14/18 9:29 AM) [facility] URINE AND UA Bili Negative Negative 09/14 STOOL *NA* [facility] (09/14/18 9:29 AM) URINE AND UA Bacteria None Seen None Seen 09/14 STOOL (09/14/18 9:29 AM) [place] URINE AND UA RBC 5 0 - 2 09/14 STOOL [place] URINE AND UA pH 5.0 5.0 - 8.0 09/14 STOOL [place] URINE AND UA Spec Grav 1.005 <=1.030 09/14 STOOL [place] URINE AND UA Color Ltyellow 09/14 STOOL [place] URINE AND UA Turbidity Clear Clear 09/14 STOOL (09/14/18 9:29 AM) [place] URINE AND UA Ketones Negative Negative 09/14 STOOL *NA* [facility] (09/14/18 9:29 AM) ELECTROLYT Potassium 5.0 3.5 - 5.1 03/20 ES Lvl [facility] ELECTROLYT CO2 26 24 - 32 03/20 ES [facility] ELECTROLYT Chloride Lvl 106 95 - 109 03/20 ES [facility] ELECTROLYT eGFR 43 03/20 Result Comment: The [facility] eGFR is calculated using the CKD-EPI formula. In most young, healthy individuals the eGFR will be >90 mL/min/1.73m2 . The eGFR declines with age. An eGFR of 60-89 may be normal in some populations, particularly the elderly, for whom the CKD-EPI formula has not been extensively validated. Use of the eGFR is not recommended in the following populations:< br/>
Sherice viduals with unstable creatinine concentration s, including patients and those with serious co-morbid conditions.<b r/>
Patie nts with extremes in muscle mass or diet.

The data above are obtained from the National Kidney Disease Education Program (NKDEP) which additionally recommends that when the eGFR is used in patients with extremes of body mass index for purposes of drug dosing, the eGFR should be multiplied by the estimated BMI. ELECTROLYT Calcium Lvl 8.4 8.5 - 10.5 03/20 ES [place] ELECTROLYT AGAP 12.0 10.0 - 03/20 MH ES 20.0 /2017 [facility] ELECTROLYT Glucose Lvl 103 70 - 99 03/20 ES [place] ELECTROLYT BUN 26 7 - 22 03/20 ES [place] ELECTROLYT Creatinine 1.73 0.50 - 08 ES Lvl 1.40 /2017 [facility] ELECTROLYT Sodium Lvl 139 135 - 145 03/20 ES [facility] CHEM PANEL eGFR 38 03/19 [facility] Comment: The [facility] eGFR is calculated using the CKD-EPI formula. In most young, healthy individuals the eGFR will be >90 mL/min/1.73m2 . The eGFR declines with age. An eGFR of 60-89 may be normal in some populations, particularly the elderly, for whom the CKD-EPI formula has not been extensively validated. Use of the eGFR is not recommended in the following populations:< br/>
Sherice viduals with unstable creatinine concentration s, including patients and those with serious co-morbid conditions.<b r/>
Patie nts with extremes in muscle mass or diet.

The data above are obtained from the National Kidney Disease Education Program (NKDEP) which additionally recommends that when the eGFR is used in patients with extremes of body mass index for purposes of drug dosing, the eGFR should be multiplied by the estimated BMI. CHEM PANEL Bili Total 0.9 0.2 - 1.3 03/19 [facility] CHEM PANEL Albumin Lvl 2.5 3.5 - 5.0 03/19 [facility] CHEM PANEL Total 6.3 6.4 - 8.4 03/19 [facility] CHEM PANEL Calcium Lvl 8.6 8.5 - 10.5 03/19 [facility] CHEM PANEL CO2 24 24 - 32 03/19 [facility] CHEM PANEL Alk Phos 194 39 - 136 03/19 [facility] CHEM PANEL AST 42 0 - 37 03/19 [facility] CHEM PANEL ALT 21 0 - 65 03/19 [facility] CHEM PANEL BUN 27 7 - 22 08/ [facility] CHEM PANEL Creatinine 1.94 0.50 - 08/05 [facility] Lvl 1.40 /2017 [facility] CHEM PANEL Glucose Lvl 140 70 - 99 08/ [facility] CHEM PANEL Sodium Lvl 141 135 - 145 08/ [facility] CHEM PANEL Potassium 5.1 3.5 - 5.1 08/ /2017 [facility] CHEM PANEL Chloride Lvl 107 95 - 109 08 [facility] CHEM PANEL B/C Ratio 14 6 - 25 08/ [facility] CHEM PANEL AGAP 15.1 10.0 - 08/ 20.0 /2017 [facility] CHEM PANEL A/G Ratio 0.7 0.7 - 1.6 03/19 [facility] CHEM PANEL Globulin 3.8 2.7 - 4.2 03/19 [facility] CHEM PANEL Phosphorus 2.9 2.5 - 4.5 08/ [facility] CHEM PANEL Magnesium 1.9 1.8 - 2.4 08/ [facility] HEMATOLOGY Eosinophils 0.9 0.0 - 0.5 08/05 # /2017 [facility] HEMATOLOGY Basophils # 0.1 0.0 - 0.2 08/ [facility] HEMATOLOGY Eosinophils 8.4 0.0 - 4.0 08/ [facility] HEMATOLOGY Basophils 1.1 0.0 - 1.0 08/ [facility] [facility] Neutrophils 7.5 1.5 - 8.1 08/ # /2017 [facility] HEMATOLOGY Lymphocytes 0.7 1.0 - 5.5 08/ # /2017 [facility] HEMATOLOGY Monocytes # 1.1 0.0 - 0.8 08 [facility] HEMATOLOGY Segs 72.9 45.0 - 08/05 75.0 /2017 [facility] HEMATOLOGY Lymphocytes 7.0 20.0 - 08/05 40.0 /2017 [facility] HEMATOLOGY Monocytes 10.6 2.0 - 12.0 08/ [facility] HEMATOLOGY RBC 3.15 4.70 - 08/05 MH 6.10 [facility] HEMATOLOGY WBC 10.2 3.7 - 10.4 08/ [facility] HEMATOLOGY Hgb 8.2 14.0 - 08/05 18.0 [facility] HEMATOLOGY Hct 25.9 42.0 - 08/05 MH 54.0 /2017 [facility] HEMATOLOGY MCV 82.4 80.0 - 08/ MH 94.0 /2017 [facility] HEMATOLOGY MCH 25.9 27.0 - 08 MH 31.0 /2017 [facility] HEMATOLOGY MCHC 31.4 32.0 - 08 MH 36.0 /2017 [facility] HEMATOLOGY RDW 17.8 11.5 - 08 MH 14.5 /2017 [facility] HEMATOLOGY Platelet 102 133 - 450 03/19 [facility] HEMATOLOGY MPV 8.9 7.4 - 10.4 03/19 [facility] BODY Clarity BF Clear Clear 03/18 FLUIDS (03/18/18 5:07 PM) /2017 [facility] BODY Color BF Zuri 03/18 FLUIDS /2017 [facility] BODY Lymph BF 70 03/18 FLUIDS [facility] BODY Macrophage 9 03/18 FLUIDS BF [facility] BODY Segs BF 19 03/18 FLUIDS /2017 [facility] BODY [place]o BF Occasional 03/18 FLUIDS (03/18/18 5:07 PM) [facility] BODY CellCnt BF Ascites 03/18 FLUIDS Type (03/18/18 5:07 PM) /2017 [facility] BODY Eos BF 2 03/18 FLUIDS [facility] BODY WBC BF 82 03/18 FLUIDS /2017 [facility] BODY RBC BF 2880 03/18 FLUIDS [facility] Gram Stain Rare Wbc'S; 03/18 Report No Organisms Seen /2017 [facility] Culture: No Growth 03/18 Aspirate/Bod /2017 [facility] y Fluid/Tissue CARDIAC Total CK 75 12 - 191 03/18 ENZYMES [facility] CARDIAC CK MB 1.7 0.5 - 3.6 03/18 ENZYMES [facility] CARDIAC CK MB Index 2.3 0.0 - 2.5 03/18 ENZYMES [facility] CHEM PANEL Albumin Lvl 2.4 3.5 - 5.0 03/18 [facility] CHEM PANEL ALT 21 0 - 65 03/18 [facility] CHEM PANEL AST 36 0 - 37 03/18 [facility] CHEM PANEL eGFR 39 03/18 [facility] Comment: The [facility] eGFR is calculated using the CKD-EPI formula. In most young, healthy individuals the eGFR will be >90 mL/min/1.73m2 . The eGFR declines with age. An eGFR of 60-89 may be normal in some populations, particularly the elderly, for whom the CKD-EPI formula has not been extensively validated. Use of the eGFR is not recommended in the following populations:< br/>
Sherice viduals with unstable creatinine concentration s, including patients and those with serious co-morbid conditions.<b r/>
Patie nts with extremes in muscle mass or diet.

The data above are obtained from the National Kidney Disease Education Program (NKDEP) which additionally recommends that when the eGFR is used in patients with extremes of body mass index for purposes of drug dosing, the eGFR should be multiplied by the estimated BMI. CHEM PANEL Alk Phos 250 39 - 136 03/18 [facility] CHEM PANEL AGAP 8.3 10.0 - 08/ MH 20.0 /2017 [facility] CHEM PANEL Bili Total 1.0 0.2 - 1.3 03/18 [facility] CHEM PANEL Globulin 4.6 2.7 - 4.2 03/18 [facility] CHEM PANEL B/C Ratio 14 6 - 25 03/18 [facility] CHEM PANEL A/G Ratio 0.5 0.7 - 1.6 03/18 [facility] CHEM PANEL Potassium 4.3 3.5 - 5.1 / MH Lvl [facility] CHEM PANEL Calcium Lvl 8.8 8.5 - 10.5 03/18 [facility] CHEM PANEL CO2 30 24 - 32 03/18 [facility] CHEM PANEL Chloride Lvl 110 95 - 109 03/18 [facility] CHEM PANEL Total 7.0 6.4 - 8.4 03/18 MH Protein [facility] CHEM PANEL Creatinine 1.89 0.50 - 08/04 MH Lvl 1.40 /2017 [facility] CHEM PANEL BUN 27 7 - 22 03/18 [facility] CHEM PANEL Glucose Lvl 115 70 - 99 03/18 [facility] CHEM PANEL Sodium Lvl 144 135 - 145 03/18 [facility] CHEM PANEL Magnesium 2.3 1.8 - 2.4 03/18 MH Lvl [place] CHEM PANEL Lipase Lvl 327 73 - 393 03/18 [facility] CHEM PANEL Phosphorus 2.9 2.5 - 4.5 03/18 [facility] CHEM PANEL Bili Direct 0.5 0.0 - 0.3 03/18 [facility] HEMATOLOGY Platelet 113 133 - 450 03/18 [facility] HEMATOLOGY MPV 9.1 7.4 - 10.4 08/ MH /2017 [facility] HEMATOLOGY MCHC 32.1 32.0 - 08/ MH 36.0 /2017 [facility] HEMATOLOGY MCH 26.2 27.0 - 08/04 MH 31.0 /2017 [facility] HEMATOLOGY RDW 17.5 11.5 - 08/ MH 14.5 /2017 [facility] HEMATOLOGY WBC 10.6 3.7 - 10.4 08/ MH /2017 [facility] HEMATOLOGY Hgb 8.4 14.0 - 08/ MH 18.0 /2017 [facility] HEMATOLOGY RBC 3.21 4.70 - 08/04 MH 6.10 /2017 [facility] HEMATOLOGY MCV 81.7 80.0 - 08/ MH 94.0 /2017 [facility] HEMATOLOGY Hct 26.2 42.0 - 08/ MH 54.0 /2017 [facility] HEMATOLOGY PTT 44.3 22.9 - 08/ 35.8 /2017 [facility] HEMATOLOGY INR 1.16 0.85 - 08 1.17 /2017 [facility] HEMATOLOGY PT 14.8 12.0 - 08/ MH 14.7 /2017 [facility] HEMATOLOGY Segs 66.2 45.0 - 08/ 75.0 /2017 [facility] HEMATOLOGY Monocytes 8.2 2.0 - 12.0 08/ MH /2017 [facility] HEMATOLOGY Lymphocytes 7.3 20.0 - 08/ 40.0 /2017 [facility] HEMATOLOGY Basophils 1.3 0.0 - 1.0 08/ /2017 [facility] HEMATOLOGY Eosinophils 17.0 0.0 - 4.0 / /2017 [facility] HEMATOLOGY Eosinophils 1.8 0.0 - 0.5 / MH # /2018 [facility] HEMATOLOGY Neutrophils 7.0 1.5 - 8.1 / # /2017 [facility] HEMATOLOGY Monocytes # 0.9 0.0 - 0.8 08/ /2017 [facility] HEMATOLOGY Lymphocytes 0.8 1.0 - 5.5 / # /2018 [facility] HEMATOLOGY Basophils # 0.1 0.0 - 0.2 03/18 /2017 [facility] URINE AND UA Color Ltyellow 03/18 STOOL /2017 [facility] URINE AND UA <=1.0 0.1 - 1.0 03/18 STOOL Urobilinogen mg/dL /2017 [facility] URINE AND UA Bili Negative Negative 03/18 STOOL *NA* /2017 [facility] (03/18/18 11:54 AM) URINE AND UA Blood Small Negative 03/18 STOOL *ABN* /2017 [facility] (03/18/18 11:54 AM) URINE AND UA Leuk Est Negative Negative 03/18 [facility] (03/18/18 11:54 AM) URINE AND UA Nitrite Negative Negative 03/18 [facility] (03/18/18 11:54 AM) [facility] URINE AND UA Sq Epi Occasional Few /LPF 03/18 STOOL /LPF [facility] URINE AND UA WBC <1 0 - 5 03/18 STOOL [facility] URINE AND UA RBC 2 0 - 2 03/18 [facility] URINE AND UA Spec Grav 1.008 <=1.030 03/18 STOOL [facility] URINE AND UA Turbidity Clear Clear 03/18 [facility] (03/18/18 11:54 AM) [facility] URINE AND UA pH 6.0 5.0 - 8.0 03/18 [facility] URINE AND UA Protein Negative Negative 03/18 [facility] mg/dL mg/dL URINE AND UA Glucose Negative Negative 03/18 [facility] mg/dL mg/dL URINE AND UA Ketones Negative Negative 03/18 STOOL mg/dL mg/dL [facility] CHEM PANEL eGFR 53 02/02 Comment: The [facility] eGFR is calculated using the CKD-EPI formula. In most young, healthy individuals the eGFR will be >90 mL/min/1.73m2 . The eGFR declines with age. An eGFR of 60-89 may be normal in some populations, particularly the elderly, for whom the CKD-EPI formula has not been extensively validated. Use of the eGFR is not recommended in the following populations:< br/>
Sherice viduals with unstable creatinine concentration s, including patients and those with serious co-morbid conditions.<b r/>
Patie nts with extremes in muscle mass or diet.

The data above are obtained from the National Kidney Disease Education Program (NKDEP) which additionally recommends that when the eGFR is used in patients with extremes of body mass index for purposes of drug dosing, the eGFR should be multiplied by the estimated BMI. CHEM PANEL CO2 24 24 - 32 02/02 [facility] CHEM PANEL Calcium Lvl 8.7 8.5 - 10.5 02/02 [facility] CHEM PANEL Sodium Lvl 144 135 - 145 02/02 [facility] CHEM PANEL Chloride Lvl 112 95 - 109 02/02 [facility] CHEM PANEL AGAP 12.4 10.0 - 02/02 20.0 [facility] CHEM PANEL Potassium 4.4 3.5 - 5.1 02/02 Lvl [facility] CHEM PANEL Glucose Lvl 95 70 - 99 02/02 [facility] CHEM PANEL Creatinine 1.46 0.50 - 02/02 Lvl 1.40 [facility] CHEM PANEL BUN 23 7 - 22 02/02 [facility] CHEM PANEL Lactic Acid 1.1 0.5 - 2.2 02/02 Lvl [place] URINE AND UA Protein >=300 Negative 02/02 STOOL mg/dL mg/dL [place] URINE AND UA Glucose Negative Negative 02/02 [facility] mg/dL mg/dL [place] URINE AND UA Ketones Negative Negative 02/02 [facility] mg/dL mg/dL [place] URINE AND UA Bili Negative Negative 02/02 STOOL *NA* /2017 [place] (02/01/18 10:07 PM) URINE AND UA Sq Epi Occasional Few /LPF 02/02 STOOL /LPF [place] URINE AND UA Leuk Est Negative Negative 02/02 [facility] (02/01/18 10:07 PM) [place] URINE AND UA Nitrite Negative Negative 02/02 [facility] (02/01/18 10:07 PM) [place] URINE AND UA 4.0 0.1 - 1.0 02/02 STOOL Urobilinogen /2017 [place] URINE AND UA Blood Moderate Negative 02/02 STOOL *ABN* /2017 [place] (02/01/18 10:07 PM) URINE AND UA pH 5.0 5.0 - 8.0 02/02 STOOL [place] URINE AND UA Spec Grav 1.025 <=1.030 02/02 STOOL [place] URINE AND UA RBC 6 0 - 2 02/02 STOOL [place] URINE AND UA WBC 2 0 - 5 02/02 STOOL [place] URINE AND UA Bacteria Occasional None Seen 02/02 STOOL /HPF /HPF /2017 [place] URINE AND UA Mucus Few /LPF None Seen 02/02 STOOL /LPF /2017 [place] URINE AND UA Color Zuri Yellow 02/02 STOOL *ABN* /2017 [place] (02/01/18 10:07 PM) URINE AND UA Turbidity Clear Clear 02/02 [facility] (02/01/18 10:07 PM) [place] CARDIAC Troponin-I <0.02 0.00 - 02/02 MH ENZYMES 0.40 [place] CARDIAC proBNP 53 0 - 125 02/02 MH ENZYMES [place] CHEM PANEL Ammonia 75.0 <=45.0 02/02 uMol/L [place] CHEM PANEL Lipase Lvl 265 73 - 393 02/02 [place] CHEM PANEL A/G Ratio 0.5 0.7 - 1.6 02/02 [place] CHEM PANEL Globulin 4.2 2.7 - 4.2 02/02 [place] CHEM PANEL B/C Ratio 15 6 - 25 02/02 [place] CHEM PANEL AGAP 11.6 10.0 - 02/02 20.0 [place] CHEM PANEL eGFR 53 02/02 Result Comment: The [place] eGFR is calculated using the CKD-EPI formula. In most young, healthy individuals the eGFR will be >90 mL/min/1.73m2 . The eGFR declines with age. An eGFR of 60-89 may be normal in some populations, particularly the elderly, for whom the CKD-EPI formula has not been extensively validated. Use of the eGFR is not recommended in the following populations:< br/>
Sherice viduals with unstable creatinine concentration s, including patients and those with serious co-morbid conditions.<b r/>
Patie nts with extremes in muscle mass or diet.

The data above are obtained from the National Kidney Disease Education Program (NKDEP) which additionally recommends that when the eGFR is used in patients with extremes of body mass index for purposes of drug dosing, the eGFR should be multiplied by the estimated BMI. CHEM PANEL Albumin Lvl 2.1 3.5 - 5.0 02/02 [place] CHEM PANEL Total 6.3 6.4 - 8.4 02/02 Protein [place] CHEM PANEL ALT 27 0 - 65 02/02 [place] CHEM PANEL Bili Total 0.7 0.2 - 1.3 02/02 [place] CHEM PANEL AST 38 0 - 37 02/02 [place] CHEM PANEL Alk Phos 146 39 - 136 02/02 [place] CHEM PANEL Calcium Lvl 8.3 8.5 - 10.5 02/02 [place] CHEM PANEL CO2 25 24 - 32 02/02 [place] CHEM PANEL Sodium Lvl 145 135 - 145 02/02 [place] CHEM PANEL Creatinine 1.46 0.50 - 02/02 MH Lvl 1.40 [place] CHEM PANEL BUN 22 7 - 22 02/02 [place] CHEM PANEL Glucose Lvl 91 70 - 99 02/02 [place] CHEM PANEL Chloride Lvl 113 95 - 109 02/02 [place] CHEM PANEL Potassium 4.6 3.5 - 5.1 02/02 MH Lvl /2017 [place] HEMATOLOGY Basophils # 0.1 0.0 - 0.2 02/02 [place] HEMATOLOGY Eosinophils 0.2 0.0 - 0.5 02/02 MH [place] HEMATOLOGY Segs-Bands # 3.3 1.5 - 8.1 02/02 [place] HEMATOLOGY Monocytes # 0.8 0.0 - 0.8 02/02 [place] HEMATOLOGY Lymphocytes 0.7 1.0 - 5.5 02/02 MH [place] HEMATOLOGY Eosinophils 4.9 0.0 - 4.0 02/02 [place] HEMATOLOGY Basophils 1.1 0.0 - 1.0 02/02 [place] HEMATOLOGY Monocytes 15.4 2.0 - 12.0 02/02 [place] HEMATOLOGY Lymphocytes 13.6 20.0 - 02/02 MH 40.0 [place] HEMATOLOGY Segs 65.0 45.0 - 02/02 MH 75.0 [place] HEMATOLOGY PTT 45.8 22.9 - 02/02 MH 35.8 [place] HEMATOLOGY WBC 5.1 3.7 - 10.4 02/02 [place] HEMATOLOGY Hct 31.2 42.0 - 02/02 MH 54.0 [place] HEMATOLOGY RBC 3.76 4.70 - 02/02 MH 6.10 [place] HEMATOLOGY Hgb 10.2 14.0 - 02/02 MH 18.0 [place] HEMATOLOGY MCV 82.9 80.0 - 02/02 MH 94.0 [place] HEMATOLOGY MCH 27.0 27.0 - 02/02 MH 31.0 /2017 [place] HEMATOLOGY MCHC 32.6 32.0 - 02/02 MH 36.0 [place] HEMATOLOGY Platelet 108 133 - 450 02/02 [place] HEMATOLOGY RDW 16.6 11.5 - 02/02 MH 14.5 [place] HEMATOLOGY MPV 8.5 7.4 - 10.4 02/02 [place] HEMATOLOGY PT 15.2 12.0 - 02/02 MH 14.7 [place] HEMATOLOGY INR 1.19 0.85 - 02/02 MH 1.17 /2017 [place] CARDIAC Troponin-I <0.02 0.00 - 03/23 ENZYMES 0.40 /2016 [place] CARDIAC Total CK 284 12 - 191 03/23 ENZYMES /2016 [place] CARDIAC CK MB 3.0 0.5 - 3.6 03/23 ENZYMES [place] CARDIAC BNP 108 <=100 03/23 ENZYMES pg/mL /2016 [place] CHEM PANEL eGFR 42 03/23 Result Comment: The [place] eGFR is calculated using the CKD-EPI formula. In most young, healthy individuals the eGFR will be >90 mL/min/1.73m2 . The eGFR declines with age. An eGFR of 60-89 may be normal in some populations, particularly the elderly, for whom the CKD-EPI formula has not been extensively validated. Use of the eGFR is not recommended in the following populations:< br/>
Sherice viduals with unstable creatinine concentration s, including patients and those with serious co-morbid conditions.<b r/>
Patie nts with extremes in muscle mass or diet.

The data above are obtained from the National Kidney Disease Education Program (NKDEP) which additionally recommends that when the eGFR is used in patients with extremes of body mass index for purposes of drug dosing, the eGFR should be multiplied by the estimated BMI. CHEM PANEL CO2 29 24 - 32 03/23 [place] CHEM PANEL Bili Total 0.7 0.2 - 1.3 03/23 [place] CHEM PANEL Calcium Lvl 8.9 8.5 - 10.5 03/23 [place] CHEM PANEL ASPARTATE 42 0 - 37 08/09 MH TRANSAMINASE /2016 [place] CHEM PANEL Total 6.1 6.4 - 8.4 08/09 MH Protein /2016 [place] CHEM PANEL Alk Phos 104 39 - 136 08/09 [place] CHEM PANEL Glucose Lvl 138 70 - 99 08/09 [place] CHEM PANEL Albumin Lvl 2.1 3.5 - 5.0 08/09 /2016 [place] CHEM PANEL BUN 34 7 - 22 08/09 [place] CHEM PANEL Creatinine 1.78 0.50 - 08/09 MH Lvl 1.40 /2016 [place] CHEM PANEL Potassium 5.0 3.5 - 5.1 08/09 MH Lvl /2016 [place] CHEM PANEL Chloride Lvl 106 95 - 109 08/09 [place] CHEM PANEL Sodium Lvl 140 135 - 145 08/ [place] CHEM PANEL ALANINE 28 0 - 65 08/09 MH AMINOTRANSFE /2016 [place] RASE CHEM PANEL AGAP 10.0 10.0 - 08/09 MH 20.0 [place] CHEM PANEL A/G Ratio 0.5 0.7 - 1.6 08/ [place] CHEM PANEL Globulin 4.0 2.7 - 4.2 08/ [place] CHEM PANEL B/C Ratio 19 6 - 25 08/ [place] HEMATOLOGY Monocytes # 0.7 0.0 - 0.8 08/ [place] HEMATOLOGY Lymphocytes 0.6 1.0 - 5.5 08/ MH # /2016 [place] HEMATOLOGY Segs 86.4 45.0 - 08/09 MH 75.0 [place] HEMATOLOGY Lymphocytes 6.3 20.0 - 08/09 MH 40.0 [place] HEMATOLOGY Eosinophils 0.1 0.0 - 4.0 08/ /2016 [place] HEMATOLOGY Monocytes 6.9 2.0 - 12.0 08/ [place] HEMATOLOGY Segs-Bands # 8.1 1.5 - 8.1 08/ [place] HEMATOLOGY Basophils 0.3 0.0 - 1.0 / [place] HEMATOLOGY INR 1.19 0.85 - 08/09 MH 1.17 [place] HEMATOLOGY PROTIME 15.4 12.0 - 08/09 MH 14.7 [place] HEMATOLOGY RDW 17.4 11.5 - 03/23 MH 14.5 /2016 [place] HEMATOLOGY MCH 27.0 27.0 - 03/23 MH 31.0 /2016 [place] HEMATOLOGY MCHC 33.2 32.0 - 03/23 MH 36.0 [place] HEMATOLOGY Platelet 81 133 - 450 03/23 [place] HEMATOLOGY MPV 8.1 7.4 - 10.4 03/23 [place] HEMATOLOGY MCV 81.4 80.0 - 03/23 MH 94.0 [place] HEMATOLOGY Hct 25.3 42.0 - 08 MH 54.0 [place] HEMATOLOGY WBC X 10x3 9.4 3.7 - 10.4 03/23 [place] HEMATOLOGY Hgb 8.4 14.0 - 03/23 MH 18.0 [place] HEMATOLOGY RBC X 10x6 3.11 4.70 - 03/23 MH 6.10 [place] URINE AND UA Glucose Negative Negative 03/22 STOOL (03/22/17 4:18 PM) [place] URINE AND UA Bacteria Rare 03/22 STOOL /2016 [place] URINE AND UA RBC 3-5 /HPF 0 - 2 03/22 STOOL [place] URINE AND UA pH 5.0 5.0 - 8.0 03/22 STOOL [place] URINE AND UA Spec Grav 1.010 <=1.030 03/22 STOOL /2016 [place] URINE AND UA Blood Moderate Negative 03/22 STOOL *ABN* /2016 [place] (03/22/17 4:18 PM) URINE AND UA 0.2 0.1 - 1.0 03/22 STOOL Urobilinogen /2016 [place] URINE AND UA Nitrite Negative Negative 03/22 STOOL (03/22/17 4:18 PM) [place] URINE AND UA Leuk Est Negative Negative 03/22 STOOL (03/22/17 4:18 PM) [place] URINE AND UA WBC 0-2 /HPF None Seen 03/22 STOOL /HPF /2016 [place] URINE AND UA Sq Epi None Seen Few 03/22 STOOL (03/22/17 4:18 PM) [place] URINE AND UA Bili Negative Negative 03/22 STOOL *NA* /2016 [place] (03/22/17 4:18 PM) URINE AND UA Ketones Negative Negative 03/22 STOOL *NA* /2016 [place] (03/22/17 4:18 PM) URINE AND UA Protein Negative Negative 03/22 STOOL (03/22/17 4:18 PM) [place] URINE AND UA Color Yellow Yellow 03/22 STOOL *NA* /2016 [place] (03/22/17 4:18 PM) URINE AND UA Turbidity Clear Clear 03/22 STOOL (03/22/17 4:18 PM) [place] CARDIAC CK-MB INDEX 1.2 0.0 - 2.5 03/22 MH ENZYMES [place] CARDIAC Troponin-I 0.02 0.00 - 03/22 ENZYMES 0.40 [place] CARDIAC CK MB 3.1 0.5 - 3.6 03/22 ENZYMES [place] CARDIAC Total CK 260 12 - 191 03/22 ENZYMES [place] CHEM PANEL eGFR 45 03/22 Result Comment: The [place] eGFR is calculated using the CKD-EPI formula. In most young, healthy individuals the eGFR will be >90 mL/min/1.73m2 . The eGFR declines with age. An eGFR of 60-89 may be normal in some populations, particularly the elderly, for whom the CKD-EPI formula has not been extensively validated. Use of the eGFR is not recommended in the following populations:< br/>
Sherice viduals with unstable creatinine concentration s, including patients and those with serious co-morbid conditions.<b r/>
Patie nts with extremes in muscle mass or diet.

The data above are obtained from the National Kidney Disease Education Program (NKDEP) which additionally recommends that when the eGFR is used in patients with extremes of body mass index for purposes of drug dosing, the eGFR should be multiplied by the estimated BMI. CHEM PANEL Globulin 3.8 2.7 - 4.2 03/22 [place] CHEM PANEL B/C Ratio 17 6 - 25 03/22 [place] CHEM PANEL A/G Ratio 0.5 0.7 - 1.6 03/22 [place] CHEM PANEL Chloride Lvl 106 95 - 109 03/22 [place] CHEM PANEL CO2 27 24 - 32 03/22 [place] CHEM PANEL Sodium Lvl 139 135 - 145 03/222016 [place] CHEM PANEL Potassium 4.3 3.5 - 5.1 08/08 MH Lvl /2016 [place] CHEM PANEL Calcium Lvl 8.3 8.5 - 10.5 08/08 MH /2016 [place] CHEM PANEL AGAP 10.3 10.0 - 08/08 MH 20.0 /2016 [place] CHEM PANEL Bili Total 1.0 0.2 - 1.3 08/08 MH /2016 [place] CHEM PANEL Total 5.8 6.4 - 8.4 08/08 MH Protein /2016 [place] CHEM PANEL ASPARTATE 43 0 - 37 08/08 MH [place] CHEM PANEL Alk Phos 127 39 - 136 08/08 MH /2016 [place] CHEM PANEL Creatinine 1.69 0.50 - 08/08 MH Lvl 1.40 [place] CHEM PANEL Glucose Lvl 117 70 - 99 08/08 [place] CHEM PANEL BUN 28 7 - 22 08/08 /2016 [place] CHEM PANEL Albumin Lvl 2.0 3.5 - 5.0 08/08 MH /2016 [place] CHEM PANEL ALANINE 25 0 - 65 08/08 AMINOTRANS /2016 [facility] HEMATOLOGY Basophils 1.1 0.0 - 1.0 08/08 MH /2016 [place] HEMATOLOGY Lymphocytes 0.8 1.0 - 5.5 08/08 MH # /2017 [place] HEMATOLOGY Monocytes # 0.6 0.0 - 0.8 08/08 MH /2016 [place] HEMATOLOGY Segs 69.2 45.0 - 08/08 MH 75.0 /2016 [place] HEMATOLOGY Lymphocytes 14.3 20.0 - 08/08 MH 40.0 [place] HEMATOLOGY Monocytes 10.0 2.0 - 12.0 08/08 MH /2016 [place] HEMATOLOGY Eosinophils 5.4 0.0 - 4.0 08/08 MH /2016 [place] HEMATOLOGY Segs-Bands # 3.9 1.5 - 8.1 08/08 MH /2016 [place] HEMATOLOGY Eosinophils 0.3 0.0 - 0.5 08/08 MH # /2016 [place] HEMATOLOGY Basophils # 0.1 0.0 - 0.2 08/08 MH /2016 [place] HEMATOLOGY MPV 7.6 7.4 - 10.4 08/ MH /2016 [place] HEMATOLOGY MCHC 33.1 32.0 - 08/08 MH 36.0 /2016 [place] HEMATOLOGY Platelet 84 133 - 450 03/22 /2016 [place] HEMATOLOGY RDW 17.6 11.5 - 08 14.5 /2016 [place] HEMATOLOGY RBC X 10x6 3.17 4.70 - 03/22 MH 6.10 /2016 [place] HEMATOLOGY WBC X 10x3 5.6 3.7 - 10.4 08 [place] HEMATOLOGY Hgb 8.6 14.0 - 03/22 MH 18.0 /2016 [place] HEMATOLOGY Hct 25.9 42.0 - 03/22 MH 54.0 /2016 [place] HEMATOLOGY MCH 27.0 27.0 - 03/22 MH 31.0 /2016 [place] HEMATOLOGY MCV 81.5 80.0 - 03/22 94.0 [place] CHEM PANEL eGFR 48 05/13 Result Comment: [facility] calculated using the CKD-EPI formula. In most young, healthy individuals the eGFR will be >90 mL/min/1.73m2 . The eGFR declines with age. An eGFR of 60-89 may be normal in some populations, particularly the elderly, for whom the CKD-EPI formula has not been extensively validated. Use of the eGFR is not recommended in the following populations:< br/>
Sherice viduals with unstable creatinine concentration s, including patients and those with serious co-morbid conditions.<b r/>
Patie nts with extremes in muscle mass or diet.

The data above are obtained from the National Kidney Disease Education Program (NKDEP) which additionally recommends that when the eGFR is used in patients with extremes of body mass index for purposes of drug dosing, the eGFR should be multiplied by the estimated BMI. CHEM PANEL CO2 19 24 - 32 05/13 [facility] CHEM PANEL Chloride Lvl 109 95 - 109 05/13 [facility] CHEM PANEL Glucose Lvl 112 70 - 99 05/13 [facility] CHEM PANEL Potassium 5.4 3.5 - 5.1 05/13 [facility] CHEM PANEL Sodium Lvl 134 135 - 145 05/13 2014 [facility] CHEM PANEL Creatinine 1.6 0.5 - 1.4 05/13 [facility] CHEM PANEL BUN 32 7 - 22 05/13 [facility] CHEM PANEL Calcium Lvl 8.9 8.5 - 10.5 05/13 [facility] CHEM PANEL AGAP 11.4 10.0 - 05/13 20.0 [facility] CHEM PANEL Alk Phos 69 39 - 136 05/13 [facility] CHEM PANEL Bili Direct 0.3 0.0 - 0.3 05/13 [facility] CHEM PANEL Bili Total 0.7 0.2 - 1.3 05/13 [facility] CHEM PANEL Total 6.5 6.4 - 8.4 05/13 [facility] CHEM PANEL AST 36 0 - 37 05/13 [facility] CHEM PANEL ALT 33 0 - 65 05/13 [facility] CHEM PANEL Albumin Lvl 4.4 3.5 - 5.0 05/13 [facility] CHEM PANEL Globulin 2.1 2.0 - 4.0 05/13 [facility] CHEM PANEL Bili 0.4 0.0 - 1.0 05/13 [facility] CHEM PANEL A/G Ratio 2.1 0.7 - 1.6 05/13 [facility] HEMATOLOGY Platelet 59 133 - 450 05/13 [facility] HEMATOLOGY MPV 8.9 7.4 - 10.4 05/13 [facility] HEMATOLOGY MCH 28.6 27.0 - 05/13 [place] 31.0 [facility] HEMATOLOGY Hgb 8.9 14.0 - 05/13 18.0 [facility] HEMATOLOGY MCV 89.2 80.0 - 05/13 [place] 94.0 /2014 [facility] HEMATOLOGY MCHC 32.0 32.0 - 05/13 [place] 36.0 [facility] HEMATOLOGY RDW 14.3 11.5 - 05/13 [place] 14.5 [facility] HEMATOLOGY Hct 27.9 42.0 - 05/13 [place] 54.0 [facility] HEMATOLOGY WBC 10.2 3.7 - 10.4 05/13 [facility] HEMATOLOGY RBC 3.13 4.70 - 05/13 [place] 6.10 [facility] HEMATOLOGY Monocytes # 0.9 0.0 - 0.8 05/13 [facility] HEMATOLOGY Lymphocytes 0.3 1.0 - 5.5 05/13 [place] # /2014 [facility] HEMATOLOGY Segs-Bands # 8.9 1.5 - 8.1 05/13 [facility] HEMATOLOGY Eosinophils 0.2 0.0 - 4.0 05/13 [facility] HEMATOLOGY Monocytes 8.9 2.0 - 12.0 05/13 [facility] HEMATOLOGY Basophils 0.4 0.0 - 1.0 05/13 [facility] HEMATOLOGY Lymphocytes 3.3 20.0 - 05/13 [place] 40.0 [facility] HEMATOLOGY Segs 87.2 45.0 - 05/13 [place] 75.0 [facility] HEMATOLOGY Plt Morph Normal 05/13 [facility] (05/13/15 4:33 AM) /2014 [facility] HEMATOLOGY RBC Morph Normal 05/13 [facility] (05/13/15 4:33 AM) /2014 [facility] CHEM PANEL ALT 49 0 - 65 05/12 2014 [facility] CHEM PANEL Total 5.9 6.4 - 8.4 05/12 [facility] Protein [facility] CHEM PANEL AST 55 0 - 37 05/12 [facility] CHEM PANEL Albumin Lvl 3.9 3.5 - 5.0 05/12 [facility] CHEM PANEL Alk Phos 88 39 - 136 05/12 [facility] CHEM PANEL Bili Total 0.9 0.2 - 1.3 05/12 [facility] CHEM PANEL Bili Direct 0.3 0.0 - 0.3 05/12 [facility] CHEM PANEL Bili 0.6 0.0 - 1.0 05/12 Indirect [facility] CHEM PANEL Globulin 2.0 2.0 - 4.0 05/12 [facility] CHEM PANEL A/G Ratio 2.0 0.7 - 1.6 05/12 [facility] ELECTROLYT AGAP 13.4 10.0 - 05/12 [facility] ES 20.0 [facility] ELECTROLYT eGFR 52 05/12 Result [facility] /2014 Comment: The Medical eGFR is Center calculated using the CKD-EPI formula. In most young, healthy individuals the eGFR will be >90 mL/min/1.73m2 . The eGFR declines with age. An eGFR of 60-89 may be normal in some populations, particularly the elderly, for whom the CKD-EPI formula has not been extensively validated. Use of the eGFR is not recommended in the following populations:< br/>
Sherice viduals with unstable creatinine concentration s, including patients and those with serious co-morbid conditions.<b r/>
Patie nts with extremes in muscle mass or diet.

The data above are obtained from the National Kidney Disease Education Program (NKDEP) which additionally recommends that when the eGFR is used in patients with extremes of body mass index for purposes of drug dosing, the eGFR should be multiplied by the estimated BMI. ELECTROLYT Potassium 4.4 3.5 - 5.1 05/12 [facility] ELECTROLYT Calcium Lvl 8.6 8.5 - 10.5 05/12 [facility]2014 [facility] ELECTROLYT Chloride Lvl 108 95 - 109 05/[address] ELECTROLYT CO2 21 24 - 32 05/[address] ELECTROLYT Glucose Lvl 130 70 - 99 05/[address] ELECTROLYT BUN 29 7 - 22 05/[address] ELECTROLYT Creatinine 1.5 0.5 - 1.4 05/12 [facility] ELECTROLYT Sodium Lvl 138 135 - 145 05/[address] HEMATOLOGY Basophils # 0.1 0.0 - 0.2 05/[address] HEMATOLOGY Monocytes # 0.7 0.0 - 0.8 05/[address] HEMATOLOGY Segs-Bands # 4.2 1.5 - 8.1 05/[address] HEMATOLOGY Eosinophils 0.4 0.0 - 0.5 05/12 [facility] /2014 [facility] HEMATOLOGY Lymphocytes 0.5 1.0 - 5.5 05/12 [facility]2014 [facility] HEMATOLOGY Basophils 1.5 0.0 - 1.0 05/[address] HEMATOLOGY Eosinophils 6.3 0.0 - 4.0 05/[address] HEMATOLOGY Monocytes 12.7 2.0 - 12.0 05/[address] HEMATOLOGY Lymphocytes 7.9 20.0 - 05/12 [facility] [place] 40.0 /2014 [facility] HEMATOLOGY Segs 71.6 45.0 - 05/12 [place] 75.0 /2014 [facility] HEMATOLOGY PTT 49.4 22.9 - 05/12 [place] 35.8 /2014 [facility] HEMATOLOGY INR 1.75 0.85 - 05/12 [place] 1.17 /2014 [facility] HEMATOLOGY PT 20.8 12.0 - 05/12 [facility] 14.7 /2014 [facility] HEMATOLOGY RDW 14.6 11.5 - 05/12 [facility] 14.5 /2014 [facility] HEMATOLOGY MCHC 32.4 32.0 - 05/12 [facility] 36.0 /2014 [facility] HEMATOLOGY WBC 5.8 3.7 - 10.4 05/12 [facility] HEMATOLOGY MCH 28.6 27.0 - 05/12 [facility] 31.0 /2014 [facility] HEMATOLOGY MCV 88.4 80.0 - 05/12 [facility] 94.0 /2014 [facility] HEMATOLOGY Hct 28.4 42.0 - 05/12 [facility] 54.0 /2014 [facility] HEMATOLOGY RBC 3.21 4.70 - 05/12 [facility] 6.10 /2014 [facility] HEMATOLOGY Hgb 9.2 14.0 - 05/12 [facility] 18.0 /2014 [facility] HEMATOLOGY MPV 8.9 7.4 - 10.4 05/12 [facility] HEMATOLOGY Platelet 52 133 - 450 05/12 [facility] CHEM PANEL Bili Direct 0.4 0.0 - 0.3 05/11 [facility] CHEM PANEL Bili 1.0 0.0 - 1.0 05/11 [facility] CHEM PANEL Bili Total 1.4 0.2 - 1.3 05/11 [facility] CHEM PANEL Alk Phos 77 39 - 136 05/11 [facility] CHEM PANEL Albumin Lvl 4.2 3.5 - 5.0 05/11 [facility] CHEM PANEL AST 93 0 - 37 05/11 [facility] CHEM PANEL ALT 60 0 - 65 05/11 [facility] CHEM PANEL A/G Ratio 2.5 0.7 - 1.6 05/11 [facility] CHEM PANEL Globulin 1.7 2.0 - 4.0 05/11 [facility] CHEM PANEL Total 5.9 6.4 - 8.4 05/11 [facility] CHEM PANEL Magnesium 2.2 1.8 - 2.4 05/11 [facility] CHEM PANEL Phosphorus 2.2 2.5 - 4.5 05/11 [facility] ELECTROLYT AGAP 11.6 10.0 - 05/11 [facility] 20.0 [facility] ELECTROLYT Potassium 4.6 3.5 - 5.1 05/11 [facility] ELECTROLYT Calcium Lvl 8.9 8.5 - 10.5 05/11 [facility] ELECTROLYT CO2 21 24 - 32 05/11 [facility] ELECTROLYT Chloride Lvl 107 95 - 109 05/11 [facility] ELECTROLYT BUN 27 7 - 22 05/11 [facility] ELECTROLYT Glucose Lvl 106 70 - 99 05/11 [facility] ELECTROLYT Sodium Lvl 135 135 - 145 05/11 [facility] ELECTROLYT Creatinine 1.3 0.5 - 1.4 05/11 [facility] ELECTROLYT eGFR 62 05/11 [facility] Comment: The Medical eGFR is Center calculated using the CKD-EPI formula. In most young, healthy individuals the eGFR will be >90 mL/min/1.73m2 . The eGFR declines with age. An eGFR of 60-89 may be normal in some populations, particularly the elderly, for whom the CKD-EPI formula has not been extensively validated. Use of the eGFR is not recommended in the following populations:< br/>
Sherice viduals with unstable creatinine concentration s, including patients and those with serious co-morbid conditions.<b r/>
Patie nts with extremes in muscle mass or diet.

The data above are obtained from the National Kidney Disease Education Program (NKDEP) which additionally recommends that when the eGFR is used in patients with extremes of body mass index for purposes of drug dosing, the eGFR should be multiplied by the estimated BMI. HEMATOLOGY Hgb 9.4 14.0 - 05/11 [facility] 18. [facility] HEMATOLOGY RBC 3.18 4.70 - 05/11 [facility] 6. [facility] HEMATOLOGY RDW 14.3 11.5 - 05/11 [place] 14. [facility] HEMATOLOGY WBC 6.8 3.7 - 10.4 05/11 [facility] HEMATOLOGY Platelet 50 133 - 450 05/11 [facility] HEMATOLOGY MPV 8.9 7.4 - 10.4 05/11 [facility] HEMATOLOGY MCHC 33.7 32.0 - 05/11 [place] 36.0 [facility] HEMATOLOGY MCH 29.5 27.0 - 05/11 [place] 31.0 [facility] HEMATOLOGY Hct 27.8 42.0 - 05/11 [place] 54.0 [facility] HEMATOLOGY MCV 87.4 80.0 - 05/11 [place] 94.0 [facility] HEMATOLOGY Eosinophils 0.4 0.0 - 0.5 05/11 [facility] HEMATOLOGY Monocytes # 0.9 0.0 - 0.8 05/11 [facility] HEMATOLOGY Basophils # 0.1 0.0 - 0.2 05/11 [facility] HEMATOLOGY Lymphocytes 6.8 20.0 - 05/11 [place] 40.0 [facility] HEMATOLOGY Segs 72.9 45.0 - 05/11 [place] 75.0 [facility] HEMATOLOGY Monocytes 13.8 2.0 - 12.0 05/11 [facility] HEMATOLOGY Segs-Bands # 5.0 1.5 - 8.1 05/11 [facility] HEMATOLOGY Lymphocytes 0.5 1.0 - 5.5 05/11 [facility] HEMATOLOGY Eosinophils 5.6 0.0 - 4.0 05/11 [facility] HEMATOLOGY Basophils 0.9 0.0 - 1.0 05/11 [facility] CHEM PANEL Magnesium 2.3 1.8 - 2.4 05/10 [facility] CHEM PANEL Phosphorus 3.0 2.5 - 4.5 05/10 [facility] CHEM PANEL Phosphorus 3.4 2.5 - 4.5 05/09 [facility] CHEM PANEL Magnesium 2.1 1.8 - 2.4 05/09 [facility] HEMATOLOGY Eosinophils 0.4 0.0 - 0.5 05/09 [facility] HEMATOLOGY Basophils # 0.1 0.0 - 0.2 05/09 [facility] HEMATOLOGY Coag Index -1.8 -3.0-3.0 - 05/09 [facility] 3.0 [facility] HEMATOLOGY TEG Data See Note 05/09 [facility] (05/09/15 4:38 PM) [facility] HEMATOLOGY Ly30 0.3 0.0 - 7.5 05/09 [facility] HEMATOLOGY G-value 4.6 4.5 - 11.0 05/09 [facility] HEMATOLOGY Max Amp 47.9 50.0 - 05/09 [place] 70.0 [facility] HEMATOLOGY Angle 53.3 53.0 - 05/09 [place] 72.0 [facility] HEMATOLOGY K-time 2.9 1.0 - 3.0 05/09 [facility] HEMATOLOGY R-time 4.3 5.0 - 10.0 05/09 [facility] HEMATOLOGY TEG Interp Thrombelas 05/09 [facility] tograph /2014 [facility] show shortened value of R and decreased value of MA. These findings are suggestive of enzymatic hypercoagu lation and thrombocyt openia. CPT:73369 BLOOD BANK RBC product Product available 05/09 [facility] RESULTS (05/09/15 11:00 AM) [facility] BLOOD BANK Antibody Negative 05/09 [facility] RESULTS Scrn (05/09/15 4:44 AM) /2014 [facility] BLOOD BANK ABO/Rh B POS 05/09 [facility] RESULTS /2014 [facility] HEMATOLOGY PTT 39.9 22.9 - 05/09 [place] 35.8 /2014 [facility] HEMATOLOGY INR 1.40 0.85 - 05/09 [place] 1.17 /2014 [facility] HEMATOLOGY PT 17.5 12.0 - 05/09 [facility] 14.7 /2014 [facility] IMMUNOLOGY HCV GENOTYPE 05/08 Result [facility] Genotype, 1a /2014 Comment: The Medical LiPA method used Center in this test is RT-PCR and reverse
h ybridization (Line Probe) of the 5' UTR and core
tamara on of the HCV genome.

The test was developed and its performance<b r/>characteri stics have been determined by
[employer]. It has not been cleared
o r approved by the U.S. Food and Drug
Admi nistration. The FDA has determined that
such clearance or approval is not necessary.
Performance characteristi cs refer to the
srini tical performance of the test.
htt p://education .[employer]
/faq/HCVGenot yping
Mica t Performed at:
[facility]
[address] [facility]
[place] [address] Merry Botello MD MOLECULAR HCV RNA [id number] 05/08 [facility] DIAGNOSTIC VirLoad /2014 [facility] MOLECULAR HCV RNA 5.8 05/08 [facility] DIAGNOSTIC Log10 /2014 [facility] TUMOR AFP 1.6 0.0 - 11.0 05/08 [facility] MARKERS [facility] URINE AND UA Ketones TR 05/08 [facility] STOOL [facility] URINE AND UA <=1.0 0.1 - 1.0 05/08 [facility] Urobilinogen mg/dL /2014 [facility] URINE AND UA Bili Negative Negative 05/08 [facility] STOOL *NA* /2014 [facility] Protein 10 mg/dL Negative 05/08 [facility] STOOL mg/dL [facility] URINE AND UA Glucose Negative Negative 05/08 [facility] mg/dL mg/dL [facility] URINE AND UA pH 5.5 5.0 - 8.0 05/08 [facility] STOOL [facility] URINE AND UA Turbidity Clear Clear 05/08 [facility] (05/08/15 10:01 AM) [facility] URINE AND UA Spec Grav 1.025 <=1.030 05/08 [facility] URINE AND UA Leuk Est Negative Negative 05/08 [facility] (05/08/15 10:01 AM) [facility] URINE AND UA Nitrite Negative Negative 05/08 [facility] (05/08/15 10:01 AM) [facility] URINE AND UA Blood Negative Negative 05/08 [facility] (05/08/15 10:01 AM) /2014 [facility] URINE AND UA Bacteria Occasional None Seen 05/08 [facility] STOOL /HPF /HPF /2014 [facility] URINE AND UA RBC 1 0 - 2 05/08 [facility] URINE AND UA WBC 1 0 - 5 05/08 [facility] /2014 [facility] URINE AND UA Hyal Cast 3 0 - 2 05/[address] URINE AND UA Mucus Few /LPF None Seen 05/08 [facility] STOOL /LPF /2014 [facility] URINE AND UA Sq Epi None Seen 05/08 [facility]2014 [facility] URINE AND UA Color Yellow Yellow 05/08 [facility] *NA* /2014 [facility] (05/08/15 10:01 AM) [place] CHEM PANEL B/C Ratio 16 6 - 25 05/08 [facility] /2014 [facility] HEMATOLOGY PTT 38.8 22.9 - 05/08 [facility] 35.8 /2014 [facility] HEMATOLOGY INR 1.39 0.85 - 05/08 [facility] 1.17 /2014 [facility] HEMATOLOGY PT 17.4 12.0 - 05/08 [facility] 14.7 /2014 [facility] Pathology Reports No Data Provided for This Section Diagnostic Reports Report Value Date Source Paracentesis w PROCEDURE: 09/14/2018 [facility] ultrasound guide VR Ultrasound-guided paracentesis. INDICATION: Ascites. Esophageal varices. COMPARISON: CT abdomen/pelvis with IV contrast from earlier on the same date. TECHNIQUE: The procedure, risks, benefits and alternatives were discussed. Informed consent was obtained. Timeout was performed prior to the procedure. The technical component of this study was performed by directly supervised physician assistant operator, Ivy Tavarez. The technical report is available in the electronic medical record. FINDINGS: Total volume of 1.8 L of clear yellow ascites was removed. IMPRESSION: 1. Technically successful ultrasound-guided paracentesis. Chest 2 views DX PROCEDURE: Chest, PA and lateral radiographs, 2 views. 09/14 [facility] INDICATION: Shortness of breath. Right-sided abdominal pain and distention. Liver cirrhosis. COMPARISON: Chest radiographs dated 03/18/2018, 02/01/2018. CT chest without contrast dated 03/22/2017. FINDINGS: Minimal right pleural effusion or pleural thickening appears similar. Right basilar density suggests scarring. Healed fracture within the lateral right lower chest. Fractures demonstrate displacement and were previously seen in March 2017. This may account for pleural-parenchymal scarring in the right lower chest. Left lung and right upper lung are clear. Mediastinum is stable. IMPRESSION: 1. Likely pleural parenchymal scarring in the right lower chest with healed fractures. Acute interstitial infiltrates are difficult to exclude. 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 Hyperechoic lobular liver suggesting underlying cirrhosis. No discrete hepatic mass or initiated. No intrahepatic bile duct dilatation is seen. Common bile duct 5 mm. Gallbladder: Incompletely demonstrated on the sonographic images submitted. There may be some luminal gallbladder sludge. No definite shadowing gallstones are seen. Pancreas: Visualized pancreatic neck and proximal body appear normal. Pancreatic head and tail are obscured by overlying bowel gas. There is trace perihepatic free fluid. No large ascites is seen. Hepatic vascular Doppler as follows: Hepatic artery patency with normal flow velocity and waveforms. Left middle and right hepatic vein patency is demonstrated. A patent TIPS shunt is present. Velocities within the shunt range between 163 197 cm/s, with normal flow direction. Normal phasic flow is seen. Flow velocity within the portal vein below the TIPS shunt is approximately 80 cm/s, with normal phasic flow present. Splenic vein is patent with normal flow direction. IMPRESSION: Patent portal vein and TIPS shunt without evidence for stenosis. Hepatic cirrhosis, steatosis, without obvious lesion or duct dilatation. Poor visualization of the gallbladder. Questionable gallbladder sludge. SL: [id number] ED Abdomen/Pelvis IV PROCEDURE: 09/14/2018 [facility] contrast only CT CT abdomen and pelvis with contrast. Reconstruction images. INDICATION: Right-sided abdominal pain and distention, worsening over past weeks. Liver cirrhosis. Last paracentesis was 5 months ago. TECHNIQUE: GI CONTRAST: None. IV CONTRAST: 100 cc of Omnipaque-300 Helical axial imaging was performed from the diaphragm through the symphysis. Coronal and sagittal reformations obtained. CT imaging performed at this location utilizes radiation dose optimization techniques which include one or more of the following: -Automated exposure control -Adjustment of the mA and/or kV according to patient size -Use of iterative reconstruction technique CT Radiation Dose: BJR=5616.58 mGy-cm COMPARISON: None. FINDINGS: LOWER CHEST: Small right pleural effusion. No left pleural effusion. No pericardial effusion. The heart is not enlarged. Bibasilar atelectasis or scarring. Infiltrates in the right lower chest not exc luded. Chronic nonunited fractures in the right lower chest. SOLID ORGANS: Liver is heterogeneous and hypodense, small in size. Liver border is irregular with findings compatible with liver cirrhosis. A TIPS shunt is identified. Evaluation for patency is limited. There is partial thrombus with peripheral calcification in the main portal vein. This appears likely chronic. Main portal vein is distended and measures at least 3.4 cm. Distended portal venous system and portal venous collaterals within the abdomen. Prominent gastroesophageal varices. No biliary dilatation. Small gallbladder. Pancreas is grossly unremarkable. Spleen is enlarged measuring at least 17 -- 18 cm in length. No adrenal nodularity. Bilateral renal parenchymal atrophy. No hydronephrosis. BOWEL: Distal esophagus, stomach and duodenum appear normal. Normal small bowel and large bowel. No obstruction or ileus. No gross evidence for focal inflammation. PERITONEUM: Mild to moderate volume abdominal pelvic fluid throughout the abdomen pelvis with diffuse generalized edema. No free intraperitoneal air. Laxity the ventral wall musculature with edema in th e ventral wall, mostly within the right abdomen. Limited visualization with incomplete visualization of the lateral right abdomen. RETROPERITONEUM: No enlarged lymphadenopathy. No vascular aneurysm. Prominent portal venous system with gastroesophageal varices and portal venous varicosities in the abdomen. PELVIS: No pelvic mass. The urinary bladder is normal. MUSCULOSKELETAL: No acute bony abnormality. Moderate degenerative changes in the lumbar sacral spine. Diffuse mild degenerative changes. IMPRESSION: 1. Small right pleural effusion with likely parenchymal scarring in the right lower chest, perhaps related to previous fractures. Acute infiltrate in the right lower chest is not excluded. 2. Liver cirrhosis with tips shunt. Patency of the shunt is not evaluated on this study. 3. Portal venous hypertension with prominence of the portal venous system, splenomegaly, gastroesophageal varices, generalized edema and ascites. 4. Chronic appearing partial thrombus in the main portal vein. 5. Bilateral renal parenchymal atrophy. 6. Generalized edema, anasarca. 6. Limited study. SL: [id number] Paracentesis w Patient Name: SHAKIRA GA 03/20/2018 [facility] ultrasound guide VR : 1960; Age: 57 years Male MR: [id number] Study: Paracentesis w ultrasound guide VR 03/20/2018 12:24 PM CDT PROCEDURE: Ultrasound-guided paracentesis CLINICAL INFORMATION: Ascites CONSENT: The procedure, risks, benefits and alternatives were discussed with the patient and written informed consent was obtained. TECHNIQUE: Preoperative diagnosis: Ascites Postoperative diagnosis: Ascites. Diaphragmatic hernia with communication between the right upper quadrant peritoneal space and the right pleural space. Specimen: 3500 cc of straw-colored/clear ascitic fluid Estimated blood loss: Minimal Pain control: 1% lidocaine was administered for local anesthesia. Focused four-quadrant sonographic evaluation of the abdomen was performed. The majority of the fluid was noted to be within the right upper quadrant of the abdomen. A safe approach was determined. Inci dental note was made of a large right pleural effusion. Multiple hernias within the right hemidiaphragm were visualized. Clear communication of fluid from the peritoneal space into the pleural space was noted. Several fat-containing foci of omentum are noted within the hernias. No bowel contents were visualized within the hernia sacs. The skin overlying the abdominal wall was prepped and draped in the usual sterile fashion. 1% lidocaine was infused into the subcutaneous tissues for local anesthesia. Using ultrasound guidance, a 5 Hungarian sheathed needle was placed into the ascites. The abdominal fluid was drained utilizing closed vacuum suction. Upon completion of the procedure, the catheter was re moved. No hematoma was visualized on the completion focused sonographic evaluation. A sterile dressing was applied. There were no immediate complications. The patient tolerated the procedure well. The patient was transferred to the postprocedure area in stable unchanged condition for further monitoring. IMPRESSION: Successful ultrasound-guided paracentesis. Diaphragmatic hernia with communication between the right upper quadrant peritoneal space and the right pleural space. Large right pleural effusion remained. SL: [id number] Liver w Liver vessels LIVER ULTRASOUND WITH DOPPLER: 03/18/2018 [facility] Doppler US HISTORY: Possible TIPS obstruction. FINDINGS: There were technical limitations due to body habitus, patient immobility and respiratory motion. The liver is subjectively small, with a right lobe sagittal span of approximately 14 cm. There is heterogeneous echogenicity of the liver parenchyma with surface nodularity, consistent with cirrhosis. N o focal liver mass is demonstrated. Mild perihepatic ascites is noted. The TIPS stent is patent showing hepatopedal flow. Continuous respiratory phasic flow is seen in the stent with peak velocity of 59 cm/s in the mid stent and a peak velocity of 162 cm at the distal landing zone. Hepatopedal flow in the main portal, right and left portal veins is demonstrated with respiratory phasic flow and a peak velocity of 41 cm/s in the main portal vein. There is multiphasic antegrade flow in the hepatic veins. Hepatic arterial waveforms in the georgina hepatis are demonstrated. The gallbladder is normal caliber without stones or wall thickening. There is no evidence of biliary dilatation. The common duct measures 5 mm in diameter. The visible pancreas and right kidney are unremarkable. The spleen is enlarged. IMPRESSION: 1. Cirrhosis without focal abnormalities. There is associated splenomegaly and small volume ascites. 2. Patent TIPS stent with possible stenosis at the distal landing zone. 3. Hepatopedal flow in the remainder of the portal system. [id number] Abdomen/Pelvis wo IV Abdomen/Pelvis wo IV contrast CT 03/18/2018 [facility] contrast CT TECHNIQUE: Contiguous transaxial images of the abdomen and pelvis were performed from the lung bases to the superior pubic rami without IV contrast. CT imaging performed at this location utilizes radiation dose optimization techniques which include one or more of the following: -Automated exposure control -Adjustment of the mA and/or kV according to patient size -Use of iterative reconstruction technique CT Radiation Dose DLP 1004.73 mGy-cm COMPARISON: None CLINICAL HX: - abd wall swelling right side. CT ABDOMEN: Lower CHEST: The lung bases are clear. ABDOMINAL VISCERA: Advanced changes of cirrhosis are noted in the liver. A TIPS shunt is in place. There is splenomegaly and varices near the GE junction. Large amount of ascites is present in the abdomen. GI TRACT: Lack of oral contrast limits evaluation of bowel. Scattered sigmoid diverticula. No CT evidence for diverticulitis. No evidence to suggest small or large bowel obstruction. There is no evidence for free air. KIDNEYS and URETERS: No tract calculi are visualized on either side. No hydronephrosis. RETROPERITONEUM: No significant retroperitoneal lymphadenopathy is noted. VASCULATURE: Aortoiliac atherosclerotic disease. BONE and SOFT TISSUES: No acute bony abnormality is noted. CT PELVIS: The bladder is unremarkable in appearance, given the limitation of lack of IV contrast. Uterus is not visualized suggesting prior hysterectomy. No gross adnexal mass is visualized. No free fluid is present in the pelvis. IMPRESSION: Advanced changes of cirrhosis are noted in the liver. TIPS shunt is in place. Portal hypertension as evidenced by large amount of ascites, splenomegaly and GE junction varices. Loculated pleural effusion is noted at the right lung base. No other significant abnormality is noted on the noncontrast CT of the abdomen and pelvis. SL: [id number] Chest 1view DX Chest 1view DX 03/18/2018 [facility] CLINICAL HISTORY: - cough COMPARISON: 02/01/2018 FINDINGS: Limited AP portable study. Support Devices: None. Lungs: Moderate opacity at the right lung base laterally persists significant change. Lungs and pleural spaces are otherwise clear. Cardiomediastinum: Stable cardiomediastinum. Bone and Soft Tissues: No acute bony abnormality is noted. Multiple EKG leads and other wires project over the patient's chest. IMPRESSION: Unchanged appearance of rounded opacity at right lung base . Findings may reflect loculated pleural fluid and/or consolidation. Consideration should be given to further evaluation with contrast CT of chest for a more thorough assessment. SL: [id number] Paracentesis w Patient Name: SHAKIRA GA 02/02/2018 [facility] ultrasound guide VR : 1960; Age: 57 years y/o Male MR: [id number] Study: Paracentesis w ultrasound guide VR 02/02/2018 1:33 AM CDT Ordering Physician: Clinical Indication: Other- See Reason for Consult - therapeutic paracentesis ; Comparison: None Timeout performed prior to the procedure. Sonographic guidance. Hard copy sonographic image recorded. 5-Hungarian trocar catheter used for paracentesis access. 9 L of ascites fluid recovered uneventfully. Catheter removed. 50 g of albumin were adm inistered intravenously. Procedure well-tolerated. SL: [id number] Chest 1view DX Patient Name: SHAKIRA GA 02/01/2018 [facility] : 1960; Age: 57 years y/o Male MR: [id number] Study: Chest 1view DX 02/01/2018 8:40 PM CDT Ordering Physician: Melanie Swain Clinical Indication: - abdominal distention, sob; Comparison: 03/22/2017 FINDINGS: The frontal chest radiograph shows normal lung volumes. There is focal opacity in the right lung base suggestive of right lower lobe atelectasis or pneumonia. A small right pleural effusion is also note d. Minimal atelectasis in the left lung base. The cardiomediastinal silhouette is within normal limits. There are no clinically significant osseous abnormalities noted. IMPRESSION: Focal opacity in the right lung base representing right lower lobe atelectasis or pneumonia. Suspected small right pleural effusion. Abdomen Doppler US Patient Name: SHAKIRA GA 03/23/2017 [facility] : 1960; Age: 56 years y/o Male MR: [id number] Study: Abdomen Doppler US 03/23/2017 11:57 AM CDT Ordering Physician: Clinical Indication: Abdominal distension - check TIPS patency, r/o HCC and evaluate for ascites; Comparison: None Portal venous Doppler study. Study limited as patient refused to complete the exam. Liver is incompletely visualized secondary diffusely hyperechoic parenchyma. No discrete mass is seen within the limited visualized portions. Patent TIPS shunt is noted within the with normal flow direction and velocity of 61 cm/s. The hepatic artery is patent with normal peak systolic velocity 122 cm/s with normal waveform. The hepatic veins are not well seen. The left portal vein demonstrates reversal of flow direction. The right portal vein is not seen. The splenic vein is patent with normal flow direction. The spleen is grossly enlarged. There is no ascites seen. IMPRESSION: Patent TIPS shunt with normal velocity and waveforms. No ascites seen. Liver incompletely evaluated. Severe splenomegaly. SL: [id number] Chest wo contrast CT Clinical Indication: - RL lung mass 03/22/2017 [facility] Comparison: Chest x-ray same date TECHNIQUE: Sequential trans-axial images were obtained thru the chest and upper abdomen [<without>] administration of iodinated contrast. Coronal and sagittal reconstructions were obtained. CT Radiation Dose DLP 771 mGy-cm FINDINGS: LUNG PARENCHYMA AND PLEURA: Small right pleural effusion. Small amount of fluid in the minor fissure. Consolidation in the right lower lobe adjacent to the effusion. There is no pneumothorax. AIRWAY: The central airway is normal. MEDIASTINUM: The non-contrast enhanced images of the mediastinum show no definite mediastinal lymphadenopathy. There is no cardiomegaly. There is no pericardial effusion. No coronary artery calcifications. No acute abnormalities of the aorta. Pulmonary arteries are unremarkable. BONES AND SOFT TISSUES: There are no acute osseous abnormalities seen. Bilateral gynecomastia. VISUALIZED NON-CONTRAST ENHANCED UPPER ABDOMEN: No acute abnormalities. A TIPS stent is noted. Cirrhotic appearing liver. No ascites. Gastroesophageal varices. Splenomegaly. IMPRESSION: 1. Small right pleural effusion with adjacent consolidation which may be atelectasis or pneumonia. A follow-up two-view chest x-ray can be obtained in 2- 3 months to confirm resolution and evaluate for any pathology which may be obscured. 2. Cirrhotic liver with evidence of portal hypertension. TIPS stent noted. SL: [id number] Chest 1view DX Study: Chest 1view DX 03/22/2017 3:32 PM CDT 03/22/2017 [facility] Patient Name: SHAKIRA GA MR: [id number] : 1960; Age: 56 years y/o Male Ordering Physician: Monica Roa Clinical Indication: Chest pain. Comparison: 05/08/2015. FINDINGS LUNGS: Decreasing pulmonary inflation associated with small right pleural effusion and adjacent opacity most likely representing passive atelectasis or less likely pneumonia. No pneumothorax. HEART AND MEDIASTINUM: Heart size near upper limits of normal accentuated by hypoinflation. LINES: None. OSSEOUS STRUCTURES: No fracture, dislocation, or suspicious focal osseous lesion. OTHER: None. IMPRESSION: 1. Decreasing pulmonary inflation associated with small right pleural effusion and adjacent opacity most likely representing passive abscess or less likely pneumonia. SL: TPAINTER-PC Guided Paracentesis US PROCEDURE: Ultrasound-guided diagnostic/therapeutic abdominal paracentesis. 05/22/2015 [facility] DATE OF PROCEDURE: 05/22/2015 at 14: 24 hours INDICATION: Ascites MEDICATIONS: 1% lidocaine local anesthesia only. Procedure time was 30 minutes, monitored all times by radiology nursing staff. TECHNIQUE AND FINDINGS: Informed written consent was obtained. The patient was then brought to the procedure room, placed in the supine position, and a timeout was performed. Prior to the procedure a brief abdominal ultrasound was used to evaluate the extent of ascites. A pocket in the left midabdomen was chosen for needle placement. The patient's left midabdomen was then prepped and draped in standard sterile [facility] ion. Then after 1% lidocaine local anesthesia, a 5 Hungarian/19-gauge sheathed catheter/needle was introduced into the pocket of ascitic fluid within the peritoneal cavity under ultrasound guidance, within image stored for the record. The needle was removed and approximately 4000 mL of clear yellow peritoneal fluid was aspirated under suction. Followup ultrasound demonstrated significant decrease in the extent of ascites, with an ultrasound image of this was stored. The catheter was removed and a sterile dressing was applied. The patient appeared to tolerate the procedure well. IMPRESSION: Ultrasound guided diagnostic/therapeutic paracentesis yielding approximately 4 L of clear yellow peritoneal fluid. Dr. Elizabeth was present for the entire procedure. TIPS VR PROCEDURE: Transjugular intrahepatic portosystemic shunt using ultrasound and fluoroscopic guidance. 05/09/2015 [facility] DATE OF PROCEDURE: 05/09/2015 INDICATION: 55-year-old male with alcoholic and hep C cirrhosis who has had a numerous paracenteses for ascites. The patient now presents with ruptured umbilical hernia which is draining ascites. A t ransjugular intrahepatic portosystemic shunt has been requested. MELD score 14. Child Garcia B. PHYSICIAN: Dr. Jesus Nielson, the attending physician, was present for the procedure and its imaging. MEDICATIONS: Anesthesiology was consulted for endotracheal tube intubation and general anesthesia. Procedure time was 180 minutes, monitored all times by radiology nursing staff. FLUOROSCOPY TIME: 22.1 minutes. TECHNIQUE AND FINDINGS: Informed written consent was obtained. The patient was then brought to the procedure suite, placed in the supine position, and a timeout was performed. The right side of the patient's neck was then sterilely prepped and draped. Preliminary ultrasound was used to document patency of the right internal jugular vein, with an image saved into the electronic medical records. After giving local ane sthesia, the right internal jugular vein was punctured under ultrasound guidance with a 21 gauge needle from a transverse approach in the mid neck, with an image stored for the record. A 0.018 inch wir e was advanced through the needle into the central veins, as confirmed fluoroscopically, and the needle was exchanged for a 5 Hungarian coaxial transitional dilator. The 0.018 inch wire was then exchanged for a 0.035 inch Bentson wire, and then the dilator was exchanged over the wire for a 6 Hungarian vascular sheath. Then over the wire through the sheath, a 5 Hungarian MPB catheter was used to obtain a pres sure in the right atrium, after which the catheter was manipulated into the hepatic inferior vena cava where another pressure was obtained. The catheter was then manipulated into the right hepatic vein with location confirmed fluoroscopically. Free and wedged hepatic vein pressures were obtained. The pressures, in mean mmHg were: wedged hepatic vein 18, free hepatic vein 5 , hepatic IVC 5, and right atrium 5. Therefore, the indirectly measured portosystemic gradient to the right atrium was 13 mmH g to the right hepatic vein 13 mmHg, indicative of portal hypertension. The 0.035 inch 180 cm Amplatz wire with a 1 cm floppy tip was advanced through the 5 Hungarian multipurpose B catheter. The multipurpose B catheter and 6 Hungarian sheath were removed over the wire. A 10 Fren ch 38.5 cm was advanced over the Amplatz wire and down the hepatic vein. The Amplatz wire was removed. The introducer cannula and needle from the [employer] set was advanced through the sheath into th e right hepatic vein. A right portal vein branch was entered successfully on the tenth pass, confirmed by contrast injection. A Glidewire was advanced into the main portal vein, and a glide catheter was advanced into the portal vein. The direct portal pressure was measured at this point to be 25 mmHg, giving a directly measured portosystemic gradient to the right atrium of 20 mmHg and trans-sinusoidal gradient 20 mmHg. A 0.035 inch Lunderquist wire was advanced through the glide catheter into the superior mesenteric vein. An 8 mm x 4 cm of Lena balloon dilatation catheter was advanced over the wire and used to ball oon dilate the parenchymal tract. The inner dilator of the 10 Hungarian sheath was then advanced over the wire and the sheath was advanced into the main portal vein. A 5 Hungarian sizing pigtail catheter was advanced through the sheath into the main portal vein. Digital subtraction angiographic images were obtained which demonstrated a patent portal venous system. There was hepatopedal flow in main portal v ein; there was hepatofugal flow in the coronary vein supplying moderate- sized gastric varices. The distance of the parenchyma tract was measured and the Viatorr stent was selected. An 8 mm length tract was determined, therefore, a 10 mm x 8 cm Viatorr (with additional 2 cm of a covered stent) was selected. The Viatorr stent was then deployed with the uncovered 2 cm portion in the portal venous system and the covered portion across the parenchymal tract. The stent was ballooned to 8 mm. Poststent measurements were then obtained which were: 21 mmHg direct portal vein, 20 mmHg mid TIPS, and 14 mmHg in the right atrium. A final venogram via the pigtail catheter demonstrated hepatopedal flow without opacification of the coronary vein. The decision was made to conclude the procedure. All wires, catheters and the sheath were then removed and hemostasis achieved with 5 minutes of manual compression. A sterile dressing was applied. The patient appeared to tolerate the procedure well. IMPRESSION: 1. Portography showed patent main portal, mesenteric, and splenic veins. A moderate-sized coronary vein supplying the gastroesophageal varices was present. 2. Initial portosystemic gradient of 20 mm Hg, indicative of portal hypertension. 3. Creation of an intrahepatic portosystemic shunt from a right-ledesma hepatic vein to the right portal vein using a 10 mm x 8 cm Viatorr stent (additional 2 cm uncovered portion). 4. Postprocedural portosystemic gradient of 7 mm Hg. PLAN: Monitor closely in the ICU for hepatic encephalopathy, heart failure, and liver failure. A TIPS ultrasound should be obtained at 1 month, 3 months, and every 6 months thereafter to evaluate TIPS patency . If the patient has persistent ascites and hepatic encephalopathy is well managed, consider balloon dilatation of the Viatorr stent to 10 mm. Liver w Liver vessels EXAM: LIVER US WITH DOPPLER 05/08/2015 [facility] Doppler US Center DATE: May 08, 2015 02:35:00 PM . INDICATION: Abdominal distention. TECHNIQUE: Grayscale, color and pulsed Doppler ultrasound of the liver was performed. FINDINGS: The liver is coarsened in echotexture with a nodular surface contour, compatible with cirrhosis. No focal mass, cyst or intrahepatic biliary ductal dilatation. The right lobe measures 14.9 cm in cranioc audal dimension.There is moderate perihepatic ascites.The portal vein is approximately 1.0 cm in diameter with normal hepatopetal flow in the main portal vein as well as in the the right and left branches. The gallbladder is empty with no evidence of cholelithiasis. The gallbladder wall measures 8.8 mm in thickness, however the patient was immediately postprandial at the time of the exam. There is no mali cholecystic fluid. The common duct has a normal caliber of 2.2 mm. The pancreas was obscured by overlying bowel gas. The spleen measures 21.7 cm in craniocaudal dimension. Doppler: The main, right and left portal veins are patent with normal hepatopedal flow. Pulsatile, hepatopetal flow is demonstrated in the main hepatic artery, which has a peak systolic velocity of 62.7 cm/sec with a resistive index of 0.7. The resistive indices of the hepatic artery [facility] are as follows: right RI of 0.7 and left RI of 0.7. The right, middle, and left hepatic veins are patent with normal hepatofugal flow. The splenic vein is patent. IMPRESSION: 1. Cirrhosis with sequela of portal hypertension including massive splenomegaly and moderate perihepatic ascites. 2. Significant gallbladder wall thickening is likely due to a combination of postprandial state and chronic liver disease. 3. Patent hepatic vessels with normal direction of flow. Chest 1view DX PORTABLE CHEST 2015-05-08 09:49:00 05/08/2015 [facility] COMPARISON: No images to compare CLINICAL INDICATION: Shortness of Breath IMPRESSION: The heart is not enlarged. Bilateral lower lobe subsegmental atelectasis. No pleural effusion or pneumothorax. Consultation Notes No Data Provided for This Section Discharge Summaries No Data Provided for This Section History and Physicals No Data Provided for This Section Vital Signs Vital Sign Value Date Comments Source Systolic (mm Hg) 157 09/14/2018 [facility] Diastolic (mm Hg) 80 09/14/2018 [facility] Heart Rate 85 09/14/2018 [facility] Temperature Oral (F) 98.5 F 09/14/2018 [facility] Systolic (mm Hg) 155 09/14/2018 [facility] Diastolic (mm Hg) 74 09/14/2018 [facility] Respitory Rate 18 09/14/2018 [facility] Heart Rate 88 09/14/2018 [facility] Temperature Oral (F) 98.5 F 09/14/2018 [facility] Weight 136.818 09/14/2018 [facility] Height 182.88 cm 09/14/2018 [facility] BMI Calculated 40.91 09/14/2018 [facility] Temperature Oral (F) 97.9 F 09/14/2018 [facility] Respitory Rate 20 09/14/2018 [facility] Heart Rate 87 09/14/2018 [facility] Systolic (mm Hg) 153 09/14/2018 [facility] Diastolic (mm Hg) 74 09/14/2018 [facility] Temperature Oral (F) 98.6 F 03/20/2018 [facility] Heart Rate 110 03/20/2018 [facility] Respitory Rate 18 03/20/2018 [facility] Systolic (mm Hg) 147 03/20/2018 [facility] Diastolic (mm Hg) 72 03/20/2018 [facility] Systolic (mm Hg) 158 03/20/2018 [facility] Diastolic (mm Hg) 61 03/20/2018 [facility] Temperature Oral (F) 98.7 F 03/20/2018 [facility] Heart Rate 79 03/20/2018 [facility] Heart Rate 79 03/20/2018 [facility] Systolic (mm Hg) 146 03/20/2018 [facility] Diastolic (mm Hg) 74 03/20/2018 [facility] Temperature Oral (F) 98.3 F 03/20/2018 [facility] Respitory Rate 18 03/20/2018 [facility] Respitory Rate 18 03/20/2018 [facility] BMI Calculated 42.81 03/18/2018 [facility] Weight 143.182 03/18/2018 [facility] Height 182.88 cm 03/18/2018 [facility] Height 182.88 cm 03/18/2018 [facility] BMI Calculated 42.27 03/18/2018 [facility] Weight 141.364 03/18/2018 [facility] Respitory Rate 25 03/18/2018 [facility] Heart Rate 92 03/18/2018 [facility] Temperature Oral (F) 98.1 F 03/18/2018 [facility] Weight 150.065 03/18/2018 [facility] Systolic (mm Hg) 154 03/18/2018 [facility] Diastolic (mm Hg) 74 03/18/2018 [facility] Respitory Rate 30 03/18/2018 [facility] Heart Rate 121 03/18/2018 [facility] Temperature Oral (F) 97.9 F 02/02/2018 [facility] Systolic (mm Hg) 136 02/02/2018 [facility] Diastolic (mm Hg) 65 02/02/2018 [facility] Respitory Rate 18 02/02/2018 [facility] Heart Rate 99 02/02/2018 [facility] Heart Rate 95 02/02/2018 [facility] Temperature Oral (F) 98.1 F 02/02/2018 [facility] Systolic (mm Hg) 132 02/02/2018 [facility] Diastolic (mm Hg) 71 02/02/2018 [facility] Respitory Rate 18 02/02/2018 [facility] Respitory Rate 18 02/02/2018 [facility] Systolic (mm Hg) 117 02/02/2018 [facility] Diastolic (mm Hg) 69 02/02/2018 [facility] Heart Rate 100 02/02/2018 [facility] Temperature Oral (F) 98 F 02/02/2018 [facility] BMI Calculated 45.09 02/02/2018 [facility] Weight 151 02/02/2018 [facility] Height 183 cm 02/02/2018 [facility] Height 182.88 cm 02/02/2018 [facility] Weight 154.545 02/02/2018 [facility] BMI Calculated 46.21 02/02/2018 [facility] Systolic (mm Hg) 136 02/02/2018 [facility] Diastolic (mm Hg) 66 02/02/2018 [facility] Respitory Rate 20 02/02/2018 [facility] Temperature Oral (F) 98.8 F 02/02/2018 [facility] Systolic (mm Hg) 149 02/02/2018 [facility] Diastolic (mm Hg) 84 02/02/2018 [facility] Respitory Rate 20 02/02/2018 [facility] Systolic (mm Hg) 146 02/02/2018 [facility] Diastolic (mm Hg) 67 02/02/2018 [facility] Respitory Rate 20 02/02/2018 [facility] Temperature Oral (F) 98.9 F 02/02/2018 [facility] Heart Rate 98 02/02/2018 [facility] Temperature Oral (F) 99 F 02/02/2018 [facility] Heart Rate 97 02/02/2018 [facility] Weight 151.2 02/02/2018 [facility] Height 182.88 cm 02/02/2018 [facility] BMI Calculated 45.21 02/02/2018 [facility] Heart Rate 111 03/23/2017 [facility] Respitory Rate 20 03/23/2017 [facility] Systolic (mm Hg) 144 03/23/2017 [facility] Diastolic (mm Hg) 75 03/23/2017 [facility] Temperature Oral (F) 98.2 F 03/23/2017 [facility] Systolic (mm Hg) 145 03/23/2017 [facility] Diastolic (mm Hg) 72 03/23/2017 [facility] Respitory Rate 20 03/23/2017 [facility] Heart Rate 119 03/23/2017 [facility] Temperature Oral (F) 98.1 F 03/23/2017 [facility] Systolic (mm Hg) 136 03/23/2017 [facility] Diastolic (mm Hg) 70 03/23/2017 [facility] Respitory Rate 20 03/23/2017 [facility] Heart Rate 121 03/23/2017 [facility] Temperature Oral (F) 98 F 03/23/2017 [facility] Height 182.88 cm 03/23/2017 [facility] Weight 81.818 03/22/2017 [facility] BMI Calculated 24.46 03/22/2017 [facility] Height 182.88 cm 03/22/2017 [facility] BMI Calculated 31.43 12/18/2015 [facility] Weight 105.114 12/18/2015 [facility] Height 182.88 cm 12/18/2015 [facility] Temperature Oral (F) 97.4 F 12/18/2015 [facility] Systolic (mm Hg) 113 12/18/2015 [facility] Diastolic (mm Hg) 66 12/18/2015 [facility] Heart Rate 85 12/18/2015 [facility] BMI Calculated 29.38 10/16/2015 [facility] Weight 98.182 10/16/2015 [facility] Height 182.8 cm 10/16/2015 [facility] BMI Calculated 28.29 09/26/2015 [facility] Weight 94.602 09/26/2015 [facility] Height 182.88 cm 09/26/2015 [facility] Temperature Oral (F) 98.1 F 09/26/2015 [facility] Heart Rate 77 09/26/2015 [facility] Systolic (mm Hg) 114 09/26/2015 [facility] Diastolic (mm Hg) 68 09/26/2015 [facility] Weight 95 08/12/2015 [facility] BMI Calculated 28.43 08/12/2015 [facility] Height 182.8 cm 08/12/2015 [facility] BMI Calculated 26.22 06/05/2015 [facility] Height 182.8 cm 06/05/2015 [facility] Weight 87.6 06/05/2015 [facility] Heart Rate 82 06/05/2015 [facility] Respitory Rate 18 06/05/2015 [facility] Systolic (mm Hg) 106 06/05/2015 [facility] Diastolic (mm Hg) 65 06/05/2015 [facility] Respitory Rate 16 05/22/2015 [facility] Systolic (mm Hg) 113 05/22/2015 [facility] Diastolic (mm Hg) 63 05/22/2015 [facility] Height 182.88 cm 05/22/2015 [facility] BMI Calculated 26.77 05/22/2015 [facility] Weight 89.545 05/22/2015 [facility] Systolic (mm Hg) 105 05/22/2015 [facility] Diastolic (mm Hg) 59 05/22/2015 [facility] Weight 88.7 05/22/2015 [facility] BMI Calculated 26.54 05/22/2015 [facility] Height 182.8 cm 05/22/2015 [facility] Systolic (mm Hg) 114 05/22/2015 [facility] Diastolic (mm Hg) 63 05/22/2015 [facility] Heart Rate 78 05/22/2015 [facility] Respitory Rate 18 05/22/2015 [facility] Respitory Rate 18 05/13/2015 [facility] Systolic (mm Hg) 108 05/13/2015 [facility] Diastolic (mm Hg) 62 05/13/2015 [facility] Heart Rate 87 05/13/2015 [facility] Temperature Oral (F) 97.5 F 05/13/2015 [facility] Systolic (mm Hg) 108 05/13/2015 [facility] Diastolic (mm Hg) 63 05/13/2015 [facility] Respitory Rate 18 05/13/2015 [facility] Temperature Oral (F) 97.6 F 05/13/2015 [facility] Heart Rate 86 05/13/2015 [facility] Weight 81.636 05/13/2015 [facility] Systolic (mm Hg) 94 05/13/2015 [facility] Diastolic (mm Hg) 58 05/13/2015 [facility] Temperature Oral (F) 98.1 F 05/13/2015 [facility] Respitory Rate 18 05/13/2015 [facility] Weight 80.545 05/13/2015 [facility] Heart Rate 90 05/12/2015 [facility] BMI Calculated 22.78 05/08/2015 [facility] Weight 76.2 05/08/2015 [facility] Height 182.88 cm 05/08/2015 [facility] Encounters Location Location Encounter Encounter Reason Attending ADM DC Status Source Details Type Number For Provider Date Date Visit [facility] [id number] Ian 05/08 05/13 [facility] 7 [place] [facility] Outpatient [id number] [place] 05/22 05/23 [facility] Bedded [id number] [place] 05/22 05/22 [facility] Outpatient [facility] Outpatient [id number] [place] 06/05 06/06 [facility] [place] 2 /2014 [facility] Outpatient [id number] Ian 08/12 08/13 [facility] [place] 4 [place] [facility] Phone [id number] 09/23 09/25 [facility] Johnnie Message [facility] Outpatient [id number] Glenty 09/26 09/27 [facility] [place] 8 [place] [facility] Outpatient [id number] [place] 10/15 10/16 [place] 9 [place] [facility] Outpatient [id number] Sohaib 12/17 12/18 [facility] John[place] 3 [place] [facility] Observation [id number] [place] What[place] 03/22 03/23 Johnnie [facility] Emergency [id number] Bang Vasquez 02/02 02/02 Johnnie [facility] Observation [id number] Ian 02/02 02/02 Johnnie 1 Melly [facility] Emergency [id number] Fadi 03/18 03/18 [facility] Inpatient [id number] 03/18 03/20 [place] [facility] Emergency [id number] Lizbet 09/14 09/14 [place] 2 Ruiy[facility] Procedures Procedure Code Date Perfomer Comments Source Abdominal [id number] 05/22/2015 [facility] paracentesis [facility] (diagnostic or therapeutic); with imaging guidance Repair of umbilical [id number] 05/12/2015 [facility] hernia Repair of umbilical [id number] 05/12/2015 [facility] Repair of umbilical [id number] 05/12/2015 [facility] hernia Repair of umbilical [id number] 05/12/2015 [facility] hernia TIPS - Transjugular [id number] 05/09/2015 [facility] intrahepatic portosystemic shunt TIPS - Transjugular [id number] 05/09/2015 [facility] portosystemic shunt TIPS - Transjugular [id number] 05/09/2015 [facility] intrahepatic portosystemic shunt TIPS - Transjugular [id number] 05/09/2015 [facility] intrahepatic portosystemic shunt Paracentesis [id number] [facility] Paracentesis [id number] [facility] Paracentesis [id number] [facility] Paracentesis [id number] [facility] Assessment and Plan Assessment and Plan Date Source Extracted from:Title: IR TIPS Revision 03/20/2018 [facility] Author: Vaughn Melendez MD Date: 03/20/18 Request for TIPS revision recieved, chart and imaging reviewed. Patient had TIPS on 05/09/2015 at [facility] for recurrent ascites, came to ED for abdominal distension and had drainage of ascites in ED. Also had one other recent paracentesis on 02/02/2018 with drainage of 9L. Liver Doppler yesterday showed possible distal stent stenosis. Evaluation and possible revision indicated. Due to Special Procedures room permanently out of commission and busy [employer] schedule, it will be difficult to get room time for procedure over next couple of days. We will try to work in [facility], but [facility] other less elective and previously scheduled procedures are still pending. Discussed with Dr Hughes... procedure could be done as outpatient if necessary. Extracted from:Title: Clinical Document Author: Dahlia Hughes MD Date: 03/19/18 GI consulted for cirrhosis, ascites as well as possible TIPS stenosis. Patient is out smoking and unable to be found. I have discussed the case with the ER physician as well as attending physician. Based on imaging it appears that his stent is stenosed and will need revi dalila. IR consult will be placed and I will try to see him again in consultation. Addendum by Dahlia Hughes MD on 03/20/2018 12:58 Tried to see him agian; went out for walk/smoke per staff. Recommend f/u w established [place] clinic [place] [facility] [place] (IR unit [facility] at [facility] today) . No SBP per labs. Extracted from:Title: History and Physical Author: Abby Franz MD Date: 03/18/18 Loculated pleural effusion right Liver cirrhosis secondary to hepatitis Cwith history of esophageal varices Question ofocclusion of TIPS Peripheral edema Rash Plan Admit to medical floor Paracentesis performed in the ER Consult pulmonary for an evaluation GI consulted Liver ultrasound with Doppler Resume home medications Supportive care Steroid cream fro rash ambulation Pending clinical improvement Extracted from:Title: Clinical Document 02/02/2018 [facility] Author: Faizan Han MD Date: 02/02/18 Discharge Summary [facility] Johnnie Faizan Han MD Discharge Diagnosis: 1. Tense ascites/anasarca 2. Chronic kidney disease stage III 3. Hypertension Brief Hospital Course: Patient was placed in observation. The patient is noncompliant with his diuretics. Patient did receive a therapeutic centesis. The patient is now currently ambulating off oxygen and is walking outsid e and out of his room. He did request for refills on his diuretics and lactulose. These were provided for the patient. He can discharge to follow-up with his PCP Vitals Tmp(F) Pulse BP RR SpO2 FIO2 02/02 07:34 98.1 95 132/71 18 96 --- 02/02 06:12 ---- --- ----- 18 98 --- 02/02 03:44 98 100 117/69 18 96 --- 02/02 01:55 ---- --- ----- 16 98 --- 24 Hr Tmax: 98.1F (36.72c) at 02/02 07:34 Vital Signs are the last 5 in the past 48 hours. Notify your physician if: Shortness of Breath Follow Up When: 2 Weeks Reason for Follow Up: See Special Instructions-Patient Diet: Continue Home Diet Activity: No restrictions Labs (Last four charted values) Na 144 (FEB 02) K 4.4 (FEB 02) CO2 24 (FEB 02) Cl H 112 (FEB 02) Cr H 1.46 (FEB 02) BUN H 23 (FEB 02) Glucose Random 95 (FEB 02) Ca 8.7 (FEB 02) Medications (4) Active Scheduled: (1) lactulose 20 gm/30 ml ud LIQ 20 gm 30 ml, PO, TID Continuous: (0) PRN: (3) acetaminophen-hydrocodone 325 mg-5 mg tab 2 tab, PO, Q4H albuterol-ipratropium 2.5 mg-0.5 mg/3 ml FLORIAN 3 ml, NEB, PRN ondansetron 4 mg/2ml INJ VL 4 mg 2 mL, IVP, Q6H Medications (7) Active Scheduled Meds (1): 02/02/18 lactulose (lactulose 10 g/15 mL oral syrup) 20 gm PO TID Unscheduled Meds: None PRN Meds (3): 02/02/18 acetaminophen-hydrocodone (acetaminophen-hydrocodone 325 mg-5 mg oral tablet) 2 tab PO Q4H 02/02/18 albuterol-ipratropium (DuoNeb inhalation solution) 3 ml NEB PRN 02/02/18 ondansetron 4 mg IVP Q6H One Time Meds (3): 02/01/18 (Completed) acetaminophen-hydrocodone ([place] 5/325 oral tablet) 1 tab PO ONCE 02/01/18 (Completed) furosemide (Lasix) 80 mg IVP ONCE 02/01/18 (Completed) levofloxacin 500 mg IVPB ONCE 100 ml/hr Continuous Infusions: None Extracted from:Title: patient refused to be upgraded 03/23/2017 [place] Author: Austin Whatley DO Date: 03/23/17 Patient seen and examined. Called by nurse as patient did not want to be upgraded. Discussion with patient and , he states that we are waiting around, not doing anything for him, wants to leave, do es not want to stay. Stated to patient that he is being evaluated by different physicians, and it is our recommendation for him to stay. He again stated that nothing is being done for him and that he wants to leave. Later notified by nursing staff that patient left AMA. Extracted from:Title: Clinical Document Author: Rick Parikh MD Date: 03/23/17 [facility] Initial Cardiology Consultation Note Reason for Consult: Tachycardia Chief Complaint: HPI: 56-year-old male with history of hepatitis C cirrhosis, portal hypertension and esophageal varices, status post TIPS in April 2015, who comes to hospital with worsening shortness of breath. He say s his shortness of breath has been going on for the past 6 months but yesterday he could not breathe so he decided to come to the hospital. He has no chest pain. He says he has gained lots of fluid al l over his body. He says his legs and abdomen are much bigger than usual. He denies any prior cardiac history. He says he had a normal cardiac workup prior to the TIPS in April 2015. He does not have a [facility] former who he follows up with regularly. EKG overnight showed that the patient is in sinus tachycardia. Telemetry also shows that the patient is in sinus tachycardia. His heart rate did increase up to the 140s after albuterol inhaler. He is currently in a heart rate of 110 120 bpm in sinus rhythm. REVIEW OF SYSTEMS: CONSTITUTIONAL: No fever. No chills. No dizziness. No weakness. EYES: No pain, erythema, or discharge. No blurring of vision. EAR, NOSE AND THROAT: No sore throat, URI symptoms. No epistaxis. No tinnitus. CARDIOVASCULAR: No chest pain. No palpitations. + lower extremity edema. RESPIRATORY: + shortness of breath, cough, pain with respiration, or pleuritic chest pain. No hemoptysis. No dyspnea. No paroxysmal nocturnal dyspnea. GASTROINTESTINAL: Normal appetite. No nausea, vomiting, diarrhea. + pain. No bloating. No melena. GENITOURINARY: No frequency, urgency, nocturia. No hematuria or dysuria. MUSCULOSKELETAL: No arthralgias or myalgias. INTEGUMENTARY: No swelling. No bruising. No contusions. No abrasions. No lymphangitis. NEUROLOGIC: No headache. No neck pain. No numbness or tingling of the extremities. No weakness. PSYCHIATRIC: No confusion. METABOLIC: No fatigue. No weakness. No history of thyroid, diabetes or adrenal problems. HEMATOLOGICAL: No bleeding. No petechiae. No bruising. ALLERGY: No asthma. No urticaria. PAST MEDICAL HISTORY: Ascites Esophageal varices PAST SURGICAL HISTORY: Repair of umbilical hernia: 05/12/15 TIPS - Transjugular intrahepatic portosystemic shunt: 05/09/15 Paracentesis FAMILY HISTORY: No qualifying data available SOCIAL HISTORY: No tobacco, alcohol, or drug abuse MEDICATIONS: See inpatient medications below Allergies: NKDA Vitals Tmp(F) Pulse BP RR SpO2 FIO2 03/23 11:40 98.1 119 145/72 20 92 --- 03/23 07:55 98 121 136/70 20 91 --- 03/23 06:51 ---- --- ----- 26 93 36% 03/23 06:49 ---- --- ----- -- 93 36% 03/23 03:50 98.2 112 163/90 22 93 3.0L/m 24 Hr Tmax: 98.6F (37.00c) at 03/22 21:45 Vital Signs are the last 5 in the past 48 hours. Gen: Alert, audible wheezing, and mild respiratory distress, obese Neck: No carotid bruits,+ JVD Lungs: Wheezing bilaterally, decreased breath sounds bilaterally Heart: Regular, tachycardic, s1 s2 Abd: Pitting edema, mild tenderness Ext: 3+ edema Neuro: No focal deficits Skin: warm, moist Labs (Last four charted values) WBC 9.4 (MAR 23) 5.6 (MAR 22) Hgb L 8.4 (MAR 23) L 8.6 (MAR 22) Hct L 25.3 (MAR 23) L 25.9 (MAR 22) Plt L 81 (MAR 23) L 84 (MAR 22) Na 140 (MAR 23) 139 (MAR 22) K 5.0 (MAR 23) 4.3 (MAR 22) CO2 29 (MAR 23) 27 (MAR 22) Cl 106 (MAR 23) 106 (MAR 22) Cr H 1.78 (MAR 23) H 1.69 (MAR 22) BUN H 34 (MAR 23) H 28 (MAR 22) Glucose Random H 138 (MAR 23) H 117 (MAR 22) Ca 8.9 (MAR 23) L 8.3 (MAR 22) PT H 15.4 (MAR 23) INR H 1.19 (MAR 23) Troponin 0.02 (MAR 22) CK MB 3.1 (MAR 22) Total CK H 260 (MAR 22) Impression: Acute hypoxic respiratory failure Sinus tachycardia Shortness of breath Volume overload hepatitis C cirrhosis portal hypertension and esophageal varices, status post TIPS in April 2015 Plan: The patient is significantly volume overloaded and in respiratory distress. He has significant wheezing which is audible when entering in the room. He has no history of heart failure. I have ordered an echocardiogram as well as a BNP. We will get an echocardiogram done with agitated saline contrast to assess for hepatopulmonary syndrome. His albumin is very low given his liver failure. This coul d explain his volume overload and third spacing everywhere. I will give him albumin infusions with IV Lasix 3 times a day. Hopefully that would improve his volume overload and also improve his breathi ng. He could be having tachycardia for respiratory distress and from the third spacing of fluids. I have consulted pulmonary for further management of the patient's wheezing and shortness of arabella th. The plan discussed in detail with the patient. All questions were answered. The nursing staff will be contacting the bottle filler. The patient will be transferred to [facility] given his significant dyspnea. The plan discussed in detail the patient. All questions answered. He is in agreement the plan. We will continue to follow. Continuous Infusions: None Scheduled Meds (7): 03/23/17 azithromycin 500 mg PO [id number] 03/23/17 cefTRIAXone + sodium chloride 0.9% INJ 100 mL 1 gm IVPB [id number] 200 ml /hr 03/23/17 furosemide (Lasix) 60 mg IVP Q12H 03/23/17 lactulose (lactulose 10 g/15 mL oral syrup) 20 gm PO BID 03/23/17 levalbuterol (Xopenex) 0.63 mg NEB RQID 03/23/17 methylPREDNISolone (methylPREDNISolone SODium SUCCinate) 40 mg IVP Q12H 03/23/17 spironolactone 100 mg PO TID Extracted from:Title: Hepatology Discharge Summary * 05/13/2015 [facility] Author: Jericho Agrawal MD Date: 05/13/15 Discharge Information Admission Date: 05/08/15 Discharge Date: 05/13/15 Attending Physician: Dr. Branham/ Consults: IR, transplant surgery Final Diagnosis: Chronic Hep C cirrhosis, s/p TIPS placement, s/p ruptured hernia repair Procedures:TIPS placement, Ruptured hernia repair Discharge Medications: Lactulose, Lasix, Spironolactone, Wellbutrin, Nicotine patch Follow up Appointments: Dr. Branham and Dr. Epps Discharge Plan Discharge Summary Plan Discharge Status: stable. Discharge instructions given: to patient. Prescriptions: written and given to patient. I agree with the above. He will be d/kamilah with f/u in the surgical clinic. I will arrange liver clinc f/u with Dr Branham. Extracted from:Title: Transplant Surgery Progress Note Author: Aida Guillen [employer] Date: 05/13/15 Assessment/Plan S/P umbilical hernia repair, follow-up exam s/p POD#1 with expected recovery, tolerating p.o intake and pain well controlled. Keep incision site with suture open to air. Encouraged on the importance of ambulating and increasing activity as tolerated. Attending Transplant Surgeon Addendum: I have seen and evaluated this patient , and formulated the plan of care with the team as documented above. I agree with the above history, physical, and assessment/plan documented on 05/13/2015. Extracted from:Title: Hepatology H &P * Author: Jericho Agrawal MD Date: 05/08/15 Impression and Plan Mr. Ga is a 55 year old man with past medical history of Hep C cirrhosis( never been treated), complicated by portal HTN adn esophageal varices who presents today with ruptured hernia leaking asciti c fluid. He is to go for TIPs placement in the mornign and possible hernia repair. #Hepatits C Cirrhosis (untreated) -complicated by portal HTN and esophageal varices -reccurent ascitic episodes requiring multiple paracentisis -Echo with bubble: normal study -Liver U/S: cirrhosis with sequela of portal HTN including massive splenomegaly and moderate ascities -AFP level pending -Hep C genotype and viral load pending -TIPS by IR in the morning #Ruptured Hernia leaking ascitic fluid -leaking serous fluid about 1.8L since admission -given albumin 75gram 25% -Transplant surgery consulted for repair of hernia after TIPS placement #Thrombocytopenia -no signs/symptoms of bleeding -monitor at this time Lines, Tubes, and Drains: 05/08/2015 09:40 Peripheral Lines: Antecubital Left 20 gauge Butterfly 05/08/2015 09:40 Peripheral Lines: Antecubital Right 20 gauge Over the needle catheter Jericho Agrawal MD [facility] Internal Medicine PGY 1 Pager [phone] I discussed the case, reviewed records and findings and saw and examined the patient. I agree with the findings of Dr. Agrawal. Picture of HCV cirrhosis with poorly controlled ascites and umbilical rupture transferred for management. Exam shows umbilical hernia with ostomy bag and drainage of fluid. There is no PSE and no history of PSE. Labs reviewed. cardiac echo and outside CT reviewed. Case discussed with IR and Transplant surgery. We will: 1) US with doppler 2) colloid expansion to prevent intravascular volume depletion 3) antibiotics 4) plan TIPS and umbilical hernia repair 5) Plan discussed in detail with the patient 6) Will need to address HCV therapy Plan of Care No Data Provided for This Section Social History Social History Date Source Social History TypeResponse 05/08/2015 [facility] Substance Abuse Use: None. Alcohol Past, Previous treatment: None. Smoking Status Current every day smoker; Type: Cigarettes; Number of years: 40; Started at age : 14.0; Previous treatment: None; Ready to change: No; Concerns about tobacco use in household: No; Lives with someone who smokes; Other Tobacco Frequency daily smoker; Cigarette Smoking Last 365 Days Yes; Reg Smoking Cessation Counseling Yes Social History TypeResponse 05/08/2015 [facility] Substance Abuse Use: None. Alcohol Past, Previous treatment: None. Smoking Status Current every day smoker; Type: Cigarettes; Number of years: 40; Started at age : 14.0; Previous treatment: None; Ready to change: No; Concerns about tobacco use in household: No; Lives with someone who smokes; Other Tobacco Frequency daily smoker; Cigarette Smoking Last 365 Days Yes; Reg Smoking Cessation Counseling Yes Social History TypeResponse 05/08/2015 [facility] Substance Abuse Use: None. Alcohol Past, Previous treatment: None. Smoking Status Current every day smoker; Type: Cigarettes; Previous treatment: None; Ready to change: No; Concerns about tobacco use in household: No; Lives with someone who smokes; Cigarette Smoking Last 365 Days Yes ; Reg Smoking Cessation Counseling Yes; Number of years: 40; Started at age: 14.0; Other Tobacco Frequency daily smoker; entered on: 09/14/18 Social History TypeResponse 05/08/2015 [facility] Substance Abuse Use: None. Alcohol Past, Previous treatment: None. Smoking Status Current every day smoker; Type: Cigarettes; Previous treatment: None; Ready to change: No; Concerns about tobacco use in household: No; Lives with someone who smokes; Cigarette Smoking Last 365 Days Yes ; Reg Smoking Cessation Counseling Yes; Number of years: 40; Started at age: 14.0; Other Tobacco Frequency daily smoker; entered on: 09/14/18 Family History No Data Provided for This Section Advance Directives No Data Provided for This Section Functional Status No Data Provided for This Section
[2019-03-13] MEDS ORDERED: NA CHLORIDE 0.9% 250 ML ONE (08:26)
[2019-03-13 08:57] VITALS: BMI 30.5
[2019-03-13 08:59] VITALS: O2SAT 97
[2019-03-13 09:49] VITALS: BP 130/61; TEMP 98.2
[2019-03-13 12:21] LABS: Hematocrit 23.9 % (39.6-49.0)
== END 2019-03-13 12:10 | disposition home or self-care (01) ==
LOC: DS 06:56
PROVIDERS: ATTEND Internal Medicine Gastroenterology
DX: D64.9 Anemia, unspecified (principal); K74.60 Unspecified cirrhosis of liver; I85.00 Esophageal varices without bleeding; R18.8 Other ascites; K72.90 Hepatic failure, unspecified without coma; Z86.19 Personal history of other infectious and parasitic diseases
CPT/HCPCS: 36415; 86900; 86850; 86901; 85018; 85014; 36430; P9016

== ENCOUNTER 2019-03-16 09:59 | Day surgery (SDC) | payer MEDICARE ==
--- OUTSIDE RECORDS SUMMARY | 2019-03-16 10:09 | XMS REPORT | Continuity of Care Document ---
:1960 Author Organization [employer] Care Team Providers Name Role Phone [employer] Unavailable Unavailable Problems Problem Status Onset Classification Date Comments Source Date Reported Right sided 09/14/19 09/17/2018 abdominal pain 19 [place] Abdominal 09/14/19 09/17/2018 distension 19 [place] WOUND CARE Active 09/14/19 19 [place] Other specified 03/28/20 10/07/2018 pleural 18 [place] conditions Cellulitis of 03/24/20 10/05/[address] [facility] abdominal wall 18 Cellulitis 03/18/20 10/05/2018 [place] 18 ABCESS Active 03/18/20 [facility] [address] SENT Active 03/18/20 18 [place] LOCULATED PLEURAL Active 03/18/20 EFFUSION 18 [place] TAPPED Active 02/02/20 [facility] [place] DECOMPENSATED Active 02/02/20 HEPATIC 18 [facility] CIRRHOSIS, CIRRHOS ASCITES SOB Active 03/22/20 [facility] 17 [place] LOWER LOBE Active 03/22/20 [facility] PNEUMONIA 17 [place] UNSPECIFIED Active 10/16/19 [facility] CIRRHOSIS OF [address] [place] [address] B18.2 - CHRONIC Active 09/30/19 [facility] VIRAL HEPATITIS C 16 [facility] OPID [place] HEP C Active 09/26/[address] F/U Active 09/26/[address] TWO WKS F/U Active 09/12/[address] BDDC - CLINIC Active 06/04/20 [facility] H[facility]PITAL FOLLOW Active 05/22/20 [facility] BEDDED Active 05/22/20 [facility] OUTPATIENT/THERAP [address] [place] [address] PARACENTESI Center SPONTANEOUS Active 05/07/20 [facility] PARACENTESIS [address] [place] [address] Ascites Resolved Problem 10/07/2018 [facility] Cirrhosis of Active Problem 10/07/2018 [facility] liver [facility] 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/07/2018 [facility] varices [facility], [place],M EDDC Family history of Active Problem 10/07/2018 [facility] colon cancer [facility], [place], [place],M EDDC 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[facility] encephalopathy [facility], [place],M EDDC Hepatitis-C Active Problem 10/07/2018 [facility], [place],[facility] EDPA Obesity Active Problem 10/07/2018 [facility], [place] Peripheral edema Active Problem 10/07/2018 [facility], [place] Other mechanical 10/07/2018 complication of [place] other cardiac and vascular devices and implants, initial encounter Acute kidney 10/07/2018 failure, [place] unspecified Other ascites 10/07/2018 [place] Esophageal 10/07/2018 varices without [place] bleeding Portal 10/07/2018 hypertension [place] Body mass index 10/07/2018 40.0-44.9, adult [place] Unspecified viral 10/07/2018 hepatitis C [place], without hepatic [place] coma Other cirrhosis 10/07/2018 of liver [place] Unspecified 10/07/2018 cirrhosis of [place], liver [place] Rash and other 10/07/2018 nonspecific skin [place] eruption Awaiting organ 10/07/2018 transplant status [place] Hypertensive 10/07/2018 chronic kidney [place] disease with stage 1 through stage 4 chronic kidney disease, or unspecified chronic kidney disease Chronic kidney 10/07/2018 disease, stage 2 [place] Nicotine 10/07/2018 dependence, [place], cigarettes, [place] uncomplicated Gastric varices 10/07/2018 [place] Splenomegaly, not 10/07/2018 elsewhere [place] classified Diaphragmatic 10/07/2018 hernia without [place] obstruction or gangrene Morbid obesity 10/07/2018 due to excess [place] calories FOOD/VOMIT Active [facility] PNEUMONITIS [facility] PNEUMONIA, Active [facility] UNSPECIFIED [facility] ORGANISM HEPATIC FAILURE, Active UNSPECIFIED [place] WITHOUT COM UNSPECIFIED Active CIRRHOSIS OF [place] LIVER PLEURAL EFFUSION, Active NOT ELSEWHERE [place] CLASSIFI Medications Medication Details Route Status Patient Ordering Order Source Instructions Provider Date Albuterol 0.83 2.49 mg, 3 mL, Inactive 09/14/ MG/ML Inhalant Route: , 2018 [place] Solution Drug form: SOLN, ONCE, Dosing Weight 136.818, kg, Priority: STAT, Start date: 09/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, Stop date: 09/14/18 9:39:00 CSTNotes: SEE RT DOCUMENTATION (Same as: Proventil) Acetaminophen 300 1 tab, PO, No Longer MG / Codeine Q6H, PRN Pain, Active 2017 [facility] Phosphate 30 MG X 7 day, # 28 Oral Tablet tab, 0 [Tylenol with Refill(s), Codeine #3] called to pharmacy Nystatin [id number] 1 appl, TOP, Active UNT/ML / TID, # 30 gm, 2017 [facility] Triamcinolone 0 Refill(s), Acetonide 1 MG/ML Pharmacy: Topical [facility] [place] [address] Furosemide 40 MG 80 mg, 2 tab, Inactive Oral Tablet Route: PO, 2017 [facility] [Lasix] Drug form: TAB, Daily, Dosing Weight 143.182, kg, Start date: 03/20/18 14:00:00 CDT, Duration: 30 day, Stop date: 04/19/18 9:00:00 CDTNotes: (Same as: Lasix) May cause GI upset. Give with food or milk. Spironolactone 100 mg, 2 tab, Inactive Route: PO, 2017 [facility] Drug form: TAB, Daily, Dosing Weight 143.182, kg, Start date: 03/20/18 14:00:00 CDT, Duration: 30 day, Stop date: 04/19/18 9:00:00 CDTNotes: (Same As: Aldactone) rifaximin 550 mg, 1 tab, No Longer Route: PO, Active 2017 [facility] Drug form: TAB, [id number], Dosing Weight 143.182, kg, Start date: 03/19/18 19:00:00 CDT, Duration: 30 day, Stop date: 04/18/18 7:00:00 CDTNotes: Same as: Xifaxan Nystatin [id number] 1 appl, Route: No Longer UNT/ML / TOP, TID, Drug Active 2017 [facility] Triamcinolone form: CRM, Acetonide 1 MG/ML Start date: Topical Cream 03/19/18 13:00:00 CDT, Duration: 30 day, Stop date: 04/18/18 9:00:00 CDTNotes: (nystatin-tria mcinolone 489406 units/g-0.1% top CRM 60 gm ) Lactulose 667 20 gm, 30 mL, Inactive 03/19/ MH MG/ML Oral Route: PO, 2017 [facility] Solution Drug form: SYRP, Daily, Dosing Weight 143.182, kg, Start date: 03/19/18 12:00:00 CDT, Duration: 30 day, Stop date: 04/17/18 12:00:00 CDTNotes: (Same as:Chronulac) lactulose 10 g/15 20 gm, 30 mL, No Longer 03/19/ MH mL oral syrup Route: PO, Active 2017 [facility] Drug form: SYRP, Daily, Dosing Weight 143.182, [...] MH MG/ML / NEB, Drug Active 2017 [facility] Ipratropium Form: SOLN, [place] 0.167 Dosing Weight MG/ML Inhalant 143.182, kg, Solution Q4H, PRN Wheezing, Start date: 03/19/18 9:48:00 CDT, Duration: 30 day, Stop date: 04/18/18 9:47:00 CDTNotes: (Same as: Duoneb) Ceftriaxone 1 gm, Route: No Longer IVPB, [id number], Active 2017 [facility] Dosing Weight 143.182, kg, Start date: 03/18/18 20:00:00 CDT, Duration: 30 day, Stop date: 04/16/18 20:00:00 CDT, ABX Indication: Intra-abdomina l InfectionNotes : (Same As: Rocephin). Use with 100 mL NS and infuse over 30 min MEDICATION WASTE Product Size: 1000 mg Product Wasted: ___ mg Enoxaparin 40 mg, 0.4 mL, No Longer Route: SUB-Q, 2017 [facility] Drug form: INJ, [id number], Dosing Weight 141.364, kg, Consider for obese patients, Start date: 03/18/18 17:00:00 CDT, Stop date: 04/17/18 5:00:00 CDTNotes: (Same as: Lovenox) Furosemide 40 MG 80 mg=2 tab, Active Oral Tablet PO, Daily, 0 2017 [facility] [Lasix] Refill(s) Lactulose 667 20 gm=30 mL, Active MG/ML Oral PO, QPM, PRN 2017 [facility] Solution as needed for constipation, 0 Refill(s) spironolactone 100 100 mg=1 tab, Active mg oral tablet PO, Daily, 0 2017 [facility] Refill(s) Ondansetron 4 mg, 2 mL, No Longer Route: IVP, 2017 [facility] Drug form: INJ, Q6H, Dosing Weight 141.364, kg, PRN Nausea & Vomiting, Start date: 03/18/18 16:15:00 CDT, Duration: 30 day, Stop date: 04/17/18 16:14:00 CDTNotes: (Same as: Zofran) MEDICATION WASTE Product Size: 4 mg Product Wasted: ___ mg albumin human 25% 25 gm, 100 mL, Inactive intravenous Route: IVPB, 2017 [facility] solution Drug form: INJ, ONCE, Dosing Weight 141.364, kg, Start date: 03/18/18 16:12:00 CDT, Stop date: 03/18/18 16:12:00 CDTNotes: Lot #: Mfg: (Same as: Plasbumin-25) "blood product derivative" WASTE: F/P - Red; E -Red MEDICATION WASTE Product Size: 25 gm Product Wasted: ___ gm albumin human 25% 25 gm, 100 mL, Inactive intravenous Route: IVPB, 2017 [facility] solution Drug form: INJ, ONCE, Dosing Weight 141.364, kg, Start date: 03/18/18 15:43:00 CDT, Stop date: 03/18/18 15:43:00 CDTNotes: Lot #: Mfg: (Same as: Plasbumin-25) "blood product derivative" WASTE: F/P - Red; E -Red MEDICATION WASTE Product Size: 25 gm Product Wasted: ___ gm Saline Flush 0.9% 10 mL, Route: No Longer IVP, Drug Active 2017 [facility] Form: INJ, Dosing Weight 141.364, kg, PRN, PRN Line Flush, Start date: 03/18/18 11:33:00 CDT, Duration: 30 day, Stop date: 04/17/18 11:32:00 CDTNotes: (Same as: BD Posiflush) Cephalexin 500 MG 500 mg=1 cap, No Longer Oral Capsule PO, QID, X 7 Active 2017 [place] [Keflex] day, # 28 cap, 0 Refill(s) Acetaminophen 300 1 tab, Route: Inactive MG / Codeine PO, Drug Form: 2017 [place] Phosphate 30 MG TAB, Dosing Oral Tablet Weight [Tylenol with 150.065, kg, Codeine #3] ONCE, STAT, Start date: 03/18/18 9:02:00 CDT, Stop date: 03/18/18 9:02:00 CDTNotes: Do not exceed 4gm/day of acetaminophen. (Same as: Tylenol with Codeine # 3) Lactulose 667 20 gm=30 mL, Active 06/21/ MH MG/ML Oral PO, BID, PRN 2018 [facility] Solution constipation, 0 Refill(s) Lactulose 667 20 gm=30 mL, Inactive 06/21/ MH MG/ML Oral PO, BID, PRN 2018 [facility] Solution constipation, # 1,000 mL, 0 Refill(s), Pharmacy: [place] [address] spironolactone 100 100 mg=1 tab, Active 06/21/ MH mg oral tablet PO, BID, # 60 2018 [place] tab, 0 Refill(s), Pharmacy: [place] [address] Furosemide 20 MG 80 mg=4 tab, Active // MH Oral Tablet PO, Daily, # 2018 [Lasix] 30 tab, 0 Refill(s), Pharmacy: [place] [address] Albuterol 0.833 3 mL, Active 06/21/ MH MG/ML / INHALATION, 2017 [facility] Ipratropium Q4H, PRN [place] 0.167 Wheezing, # 30 MG/ML Inhalant ea, 1 Solution Refill(s) Ipratropium 2 spray, Each Active 02/02/ MH [place] 0.021 Affected 2017 [facility] MG/ACTUAT Metered Nostril, TID, Dose Nasal [place] # 30 ml, 0 Refill(s) spironolactone 100 100 mg=1 tab, Inactive 06/21/ MH mg oral tablet PO, BID, # 30 2018 [place] tab, 0 Refill(s) Lactulose 667 20 gm=30 mL, Inactive 06/21/ MH MG/ML Oral PO, BID, PRN 2017 [facility] Solution constipation, 0 Refill(s) Lactulose 667 20 gm, 30 ml, Inactive 06/21/ MH MG/ML Oral Route: PO, 2017 [facility] Solution Drug form: SYRP, TID, Dosing Weight 151.2, kg, Start date: 02/02/18 9:00:00 CDT, Duration: 30 day, Stop date: 03/03/18 17:00:00 CDTNotes: (Same as:Chronulac) Albuterol 0.833 3 ml, Route: Inactive 06/21/ MH MG/ML / NEB, Drug 2017 [facility] Ipratropium Form: SOLN, [place] 0.167 Dosing Weight MG/ML Inhalant 151.2, kg, Solution [DuoNeb] PRN, PRN Respiratory Pathway, Start date: 02/02/18 1:33:00 CDT, Duration: 30 day, Stop date: 03/04/18 1:32:00 CDTNotes: (Same as: Duoneb) Acetaminophen 325 2 tab, Route: Inactive MG / Hydrocodone PO, Drug Form: 2017 [facility] Bitartrate 5 MG TAB, Dosing Oral Tablet Weight 151.2, kg, Q4H, PRN Pain Score 7-10, Start date: 02/02/18 1:33:00 CDT, Duration: 30 day, Stop date: 03/04/18 1:32:00 CDTNotes: (Same as: [place] 325/5) Do not exceed 4gm/day of acetaminophen. Ondansetron 4 mg, 2 mL, Inactive Route: IVP, 2017 [facility] Drug form: INJ, Q6H, Dosing Weight 151.2, kg, PRN Nausea & Vomiting, Start date: 02/02/18 1:33:00 CDT, Duration: 30 day, Stop date: 03/04/18 1:32:00 CDTNotes: (Same as: Zofran) MEDICATION WASTE Product Size: 4 mg Product Wasted: ___ mg Acetaminophen 325 1 tab, Route: Inactive MG / Hydrocodone PO, Drug Form: 2017 [place] Bitartrate 5 MG TAB, Dosing Oral Tablet [[place] Weight 151.2, 5/325] kg, ONCE, STAT, Start date: 02/01/18 23:03:00 CDT, Stop date: 02/01/18 23:03:00 CDT Lasix 80 mg, 8 mL, Inactive Route: IVP, 2017 [place] Drug form: INJ, ONCE, Dosing Weight 151.2, kg, Priority: STAT, Start date: 02/01/18 22:21:00 CDT, Stop date: 02/01/18 22:21:00 CDTNotes: (Same as: Lasix) MEDICATION WASTE Product Size: 40 mg Product Wasted: ___ mg Levofloxacin 500 mg, 100 Inactive mL, Route: 2018 [place] IVPB, Drug form: SOLN, ONCE, Dosing Weight 151.2, kg, Start date: 02/01/18 22:20:00 CDT, Stop date: 02/01/18 22:20:00 CDT, ABX Indication: PneumoniaNotes : (Same as:Levaquin) Spironolactone 300 mg, Route: No Longer PO, Drug form: Active 2016 [place] TAB, Daily, Dosing Weight 81.818, kg, Start date: 03/24/17 9:00:00 CDT, Duration: 30 day, Stop date: 04/22/17 9:00:00 CDT Lasix 40 mg, Route: Inactive IVP, Drug 2016 [place] form: INJ, Q12H, Dosing Weight 81.818, kg, Start date: 03/23/17 21:00:00 CDT, Duration: 7 day, Stop date: 03/30/17 9:00:00 CDT Ipratropium 0.5 mg, 2.5 Inactive [place] 0.2 MG/ML mL, Route: 2016 [place] Inhalant Solution NEB, Drug form: SOLN, RQID, Dosing Weight 81.818, kg, Start date: 03/23/17 19:00:00 CDT, Duration: 30 day, Stop date: 04/22/17 15:00:00 CDTNotes: SEE RT DOCUMENTATION (Same as:Atrovent) Lactulose 667 20 gm, 30 mL, Inactive MG/ML Oral Route: PO, 2016 [place] Solution Drug form: SYRP, BID, Dosing Weight 81.818, kg, Start date: 03/23/17 17:00:00 CDT, Duration: 30 day, Stop date: 04/22/17 9:00:00 CDTNotes: (Same as:Chronulac) Xopenex 0.63 mg, Inactive Route: NEB, 2016 [place] Drug form: SOLN, Q8H, Dosing Weight 81.818, kg, Start date: 03/23/17 16:00:00 CDT, Duration: 30 day, Stop date: 04/22/17 8:00:00 CDT Lasix 60 mg, 6 mL, Inactive Route: IVP, 2016 [place] Drug form: INJ, Q8H, Dosing Weight 81.818, kg, Start date: 03/23/17 16:00:00 CDT, Duration: 30 day, Stop date: 04/22/17 8:00:00 CDTNotes: (Same as: Lasix) MEDICATION WASTE Product Size: 40 mg Product Wasted: ___ mg albumin human 25% 25 gm, 100 mL, Inactive intravenous Route: IVPB, 2016 [place] solution Drug form: INJ, Q8H, Dosing Weight 81.818, kg, Start date: 03/23/17 16:00:00 CDT, Duration: 6 doses or times, Stop date: 03/25/17 8:00:00 CDTNotes: Lot #: Mfg: (Same as: Plasbumin-25) "blood product derivative" WASTE: F/P - Red; E -Red MEDICATION WASTE Product Size: 25 gm Product Wasted: ___ gm Symbicort 160/4.5 2 inhalation, Inactive inhalation aerosol Route: 2016 [place] with adapter INHALATION, Drug Form: AERO/A, Dosing Weight 81.818, kg, RBID, Start date: 03/23/17 15:35:00 CDT, Duration: 30 day, Stop date: 04/22/17 8:00:00 CDTNotes: (Same as: Symbicort) WASTE: Aerosol - Return to Pharmacy Xopenex 0.63 mg, 3 mL, Inactive Route: NEB, 2016 [place] Drug form: SOLN, RQID, Dosing Weight 81.818, kg, Start date: 03/23/17 15:00:00 CDT, Duration: 30 day, Stop date: 04/22/17 11:00:00 CDTNotes: SEE RT DOCUMENTATION (Same as:Xopenex) Non-Formulary Spironolactone 100 mg, 2 tab, Inactive Route: PO, 2016 [place] Drug form: TAB, TID, Dosing Weight 81.818, kg, Start date: 03/23/17 13:00:00 CDT, Duration: 30 day, Stop date: 04/22/17 9:00:00 CDTNotes: (Same As: Aldactone) Albuterol 0.833 3 ml, Route: Inactive MG/ML / NEB, Drug 2016 [place] Ipratropium Form: SOLN, [place] 0.167 Dosing Weight MG/ML Inhalant 81.818, kg, Solution [DuoNeb] QID, Start date: 03/23/17 13:00:00 CDT, Duration: 7 day, Stop date: 03/30/17 9:00:00 CDTNotes: (Same as: Duoneb) Xopenex 0.63 mg, 3 mL, Inactive Route: 2016 [place] Drug form: SOLN, PRN, Dosing Weight 81.818, kg, PRN Respiratory Protocol, Start date: 03/23/17 11:26:00 CDT, Duration: 30 day, Stop date: 04/22/17 11:25:00 CDTNotes: SEE RT DOCUMENTATION (Same as:Xopenex) Non-Formulary Lactulose 667 20 gm=30 mL, On Hold MG/ML Oral PO, BID, 0 2016 [place] Solution Refill(s) spironolactone 100 300 mg=3 tab, On Hold mg oral tablet PO, Daily, 0 2016 [place] Refill(s) methylPREDNISolone 40 mg, 1 mL, Inactive SODium SUCCinate Route: IVP, 2016 [place] Drug form: INJ, Q12H, Dosing Weight 81.818, kg, Start date: 03/23/17 9:00:00 CDT, Duration: 30 day, Stop date: 04/21/17 21:00:00 CDTNotes: (Same as:Solu-MEDROL , A-Methapred) Xopenex 0.63 mg, 3 mL, Inactive Route: 2016 [place] Drug form: SOLN, PRN, Dosing Weight 81.818, kg, PRN Wheezing, Start date: 03/23/17 7:42:00 CDT, Duration: 30 day, Stop date: 04/22/17 7:41:00 CDTNotes: SEE RT DOCUMENTATION (Same as:Xopenex) Non-Formulary albuterol 1.25 mg, 3 mL, Inactive Route: [id number] [place] Drug form: SOLN, PRN, PRN See Respiratory Notes, Start date: 03/23/17 7:02:00 CDT, Duration: 30 day, Stop date: 04/22/17 7:01:00 CDTNotes: SEE RT DOCUMENTATION (Same as: Proventil) Xopenex 0.63 mg, Inactive Route: [id number] [place] PRN, Dosing Weight 81.818, kg, PRN Wheezing, Start date: 03/23/17 6:47:00 CDT, Duration: 30 day, Stop date: 04/22/17 6:46:00 CDT Lasix 40 mg, 4 mL, Inactive Route: IVP, 2016 [place] Drug form: INJ, ONCE, Dosing Weight 81.818, kg, Start date: 03/23/17 6:45:00 CDT, Stop date: 03/23/17 6:45:00 CDTNotes: (Same as: Lasix) MEDICATION WASTE Product Size: 40 mg Product Wasted: ___ mg Albuterol 0.833 3 ml, Route: Inactive MG/ML / NEB, Drug 2016 [place] Ipratropium Form: SOLN, [place] 0.167 Dosing Weight MG/ML Inhalant 81.818, kg, Solution [DuoNeb] PRN, PRN Respiratory Protocol, Start date: 03/23/17 1:17:00 CDT, Duration: 30 day, Stop date: 04/22/17 1:16:00 CDTNotes: (Same as: Duoneb) Albuterol 0.833 3 ml, Route: Inactive MG/ML / NEB, Drug 2016 [place] Ipratropium Form: SOLN, [place] 0.167 Dosing Weight MG/ML Inhalant 81.818, kg, Solution PRN, PRN Respiratory Protocol, Start date: 03/23/17 0:53:00 CDT, Duration: 30 day, Stop date: 04/22/17 0:52:00 CDTNotes: (Same as: Duoneb) Azithromycin 500 mg, 2 tab, Inactive Route: PO, 2016 [place] Drug form: TAB, [id number], Dosing Weight 81.818, kg, Start date: 03/23/17 0:00:00 CDT, Duration: 7 day, Stop date: 03/29/17 0:00:00 CDT, ABX Indication: PneumoniaNotes : Take 1 hour before or 2 hours after meals. (Same As: Zithromax) Ceftriaxone 1 gm, Route: Inactive IVPB, [id number], 2016 [place] Dosing Weight 81.818, kg, Start date: 03/23/17 0:00:00 CDT, Duration: 7 day, Stop date: 03/29/17 0:00:00 CDT, ABX Indication: PneumoniaNotes : (Same As: Rocephin). Use with 100 mL NS and infuse over 30 min MEDICATION WASTE Product Size: 1000 mg Product Wasted: ___ mg Acetaminophen 650 mg, 2 tab, No Longer Route: PO, Active 2016 [place] Drug form: TAB, Q4H, Dosing Weight 81.818, kg, PRN Pain 1-3/Temp > 100.4 F, Start date: 03/22/17 23:25:00 CDT, Duration: 30 day, Stop date: 04/21/17 23:24:00 CDTNotes: Do not exceed 4 gm/day. (Same as: Tylenol) Acetaminophen 325 1 tab, Route: No Longer MG / Hydrocodone PO, Drug Form: Active 2016 [place] Bitartrate 5 MG TAB, Dosing Oral Tablet Weight 81.818, kg, Q4H, PRN Pain Score 4-6, Start date: 03/22/17 23:25:00 CDT, Duration: 30 day, Stop date: 04/21/17 23:24:00 CDTNotes: (Same as: [place] 325/5) Do not exceed 4gm/day of acetaminophen. Morphine 4 mg, 1 mL, No Longer Route: IVP, Active 2016 [place] Drug form: INJ, Q4H, Dosing Weight 81.818, kg, PRN Pain Score 7-10, Start date: 03/22/17 23:25:00 CDT, Duration: 30 day, Stop date: 04/21/17 23:24:00 CDTNotes: (Same as:MORPhine Sulfate) Ondansetron 4 mg, 2 mL, No Longer Route: IVP, Active 2016 [place] Drug form: INJ, Q6H, Dosing Weight 81.818, kg, PRN Nausea & Vomiting, Start date: 03/22/17 23:25:00 CDT, Duration: 30 day, Stop date: 04/21/17 23:24:00 CDTNotes: (Same as: Zofran) MEDICATION WASTE Product Size: 4 mg Product Wasted: ___ mg Clindamycin 600 mg, 50 mL, Inactive Route: IV, 2016 [place] Drug form: INJ, ONCE, Dosing Weight 81.818, kg, Start date: 03/22/17 17:18:00 CDT, Stop date: 03/22/17 17:18:00 CDT, ABX Indication: Pneumonia Clindamycin 600 mg, Route: Inactive IM, ONCE, 2016 [place] Dosing Weight 81.818, kg, Priority: STAT, Start date: 03/22/17 17:14:00 CDT, Duration: 1 doses or times, Stop date: 03/22/17 17:14:00 CDT, ABX Indication: Pneumonia Zofran 4 mg, 2 mL, Inactive Route: IVP, 2016 [place] Drug form: INJ, ONCE, Dosing Weight 81.818, kg, Priority: STAT, Start date: 03/22/17 17:13:00 CDT, Stop date: 03/22/17 17:13:00 CDTNotes: (Same as: Zofran) MEDICATION WASTE Product Size: 4 mg Product Wasted: ___ mg Morphine 2 mg, 1 mL, Inactive Route: IVP, 2016 [place] Drug form: SOLN, ONCE, Dosing Weight 81.818, kg, Priority: STAT, Start date: 03/22/17 17:12:00 CDT, Stop date: 03/22/17 17:12:00 CDT methylPREDNISolone 125 mg, 2 mL, Inactive SODium SUCCinate Route: IVP, 2016 [place] Drug form: INJ, ONCE, Dosing Weight 81.818, kg, Priority: STAT, Start date: 03/22/17 17:11:00 CDT, Stop date: 03/22/17 17:11:00 CDTNotes: (Same as:Solu-MEDROL , A-Methapred) Albuterol 0.833 3 mL, Route: Inactive MG/ML / NEB, Drug 2016 [place] Ipratropium Form: SOLN, [place] 0.167 Dosing Weight MG/ML Inhalant 81.818, kg, Solution ONCE, STAT, Start date: 03/22/17 17:10:00 CDT, Stop date: 03/22/17 17:10:00 CDTNotes: (Same as: Duoneb) cefepime 1 gm, Route: Inactive IVPB, ONCE, 2016 [place] Dosing Weight 81.818, kg, Priority: STAT, Start date: 03/22/17 17:10:00 CDT, Duration: 1 doses or times, Stop date: 03/22/17 17:10:00 CDT, ABX Indication: PneumoniaNotes : (Same As: Maxipime) MEDICATION WASTE Product Size: 1000 mg Product Wasted: ___ mg Vancomycin 2,000 mg, Inactive Route: IVPB, 2016 [place] ONCE, Dosing Weight 81.818, kg, Priority: STAT, Start date: 03/22/17 17:09:00 CDT, Duration: 1 doses or times, Stop date: 03/22/17 17:09:00 CDT, ABX Indication: PneumoniaNotes : TIME CRITICAL MEDICATION (Same As: Vancocin) Infusion rate 2001 mg: infuse over 2.5 hours MEDICATION WASTE Product Size: 1000 mg Product Wasted: ___ mg Lasix 40 mg, 4 mL, Inactive Route: IVP, 2016 [place] Drug form: INJ, ONCE, Dosing Weight 81.818, kg, Priority: STAT, Start date: 03/22/17 16:36:00 CDT, Stop date: 03/22/17 16:36:00 CDTNotes: (Same as: Lasix) MEDICATION WASTE Product Size: 40 mg Product Wasted: ___ mg Albuterol 0.833 3 mL, Route: Inactive MG/ML / NEB, Drug 2017 [place] Ipratropium Form: SOLN, [place] 0.167 Dosing Weight MG/ML Inhalant 81.818, kg, Solution ONCE, STAT, Start date: 03/22/17 16:35:00 CDT, Stop date: 03/22/17 16:35:00 CDTNotes: (Same as: Duoneb) lactulose 20 g See Active [facility] oral powder Instructions, 2016 [facility] 20gm/ BID, # Center 60 ea, 5 Refill(s), Pharmacy: [facility]/pharmacy #[id number] Lactulose 667 10 gm=15 mL, Inactive [place] MG/ML Oral PO, Daily, 0 2015 [facility] Solution Refill(s) Center Furosemide 20 MG 60 mg=3 tab, Active [facility] Oral Tablet PO, Daily, 0 2016 [facility] [Lasix] Refill(s) Center ledipasvir 90 MG / 0 Refill(s) Active [facility] sofosbuvir 400 MG 2016 [facility] Oral Tablet Center [Harvoni] Folic Acid 1 MG 1 mg=1 tab, Active [facility] Oral Tablet PO, Daily, # 2016 [facility] 30 tab, 6 Center Refill(s), Pharmacy: [facility]/pharmacy #[id number] Hepatitis B 10 microgram, Inactive [facility] Surface Antigen 1 mL, Route: 2014 [facility] Vaccine 0.01 MG/ML IM, ONCE, Center Injectable Dosing Weight Suspension 95, kg, Start date: 08/12/15 9:51:00, Duration: 0, Stop date: 08/12/15 9:51:00 spironolactone 50 100 mg=2 tab, Active [place] mg oral tablet PO, Daily, # 2014 [facility] 60 tab, 3 Center Refill(s), Pharmacy: [facility]/pharmacy #[id number] Furosemide 20 MG 80 mg=4 tab, Active [facility] Oral Tablet PO, Daily, # 2014 [facility] 120 tab, 3 Center Refill(s), Pharmacy: [facility]/pharmacy #[id number] Lactulose 667 30 gm=45 mL, Active [place] MG/ML Oral PO, BID, X 30 2014 [facility] Solution day, # 2700 Center mL, 3 Refill(s), [facility] [id number] rifaximin 550 MG 550 mg=1 tab, Active [place] Oral Tablet PO, BID, # 60 2014 Medical [XIFAXAN] tab, 6 Center Refill(s), Pharmacy: [facility]/pharmacy #[id number] oxyCODONE 5 mg 5 mg=1 tab, Active [facility] oral tablet PO, Q6H, PRN 2015 Medical [...] Refill(s) spironolactone 100 300 mg, PO, Active [facility] mg oral tablet Daily, # 90 2015 Medical tab, 2 Center Refill(s) buPROPion 150 mg 150 mg=1 tab, Active [facility] oral tablet, PO, Daily, # 2015 Medical [...] furosemide 80 mg 80 mg=1 tab, Active [facility] oral tablet PO, Daily, # 2015 Medical 90 tab, 3 Center Refill(s) Promethazine 6.25 mg, Inactive [facility] Route: IVPB, 2014 Medical ONCE, Dosing Center Weight 76.2, kg, PRN Nausea & Vomiting, Start date: 05/12/15 12:57:00 Ondansetron 4 mg, Route: Inactive [facility] IVP, ONCE, 2014 Medical Dosing Weight Center 76.2, kg, PRN Nausea & Vomiting, Start date: 05/12/15 12:57:00 Naloxone 0.04 mg, Inactive [facility] Route: IVP, 2014 Medical Q2MIN, Dosing Center Weight 76.2, kg, PRN Narcotic Reversal, Start date: 05/12/15 12:57:00, Duration: 8 doses or times, Stop date: Limited # of times Flumazenil 0.2 mg, Route: Inactive [facility] IVP, PRN, 2014 Medical Dosing Weight Center 76.2, kg, PRN Benzodiazepine Reversal, Initial dose, Start date: 05/12/15 12:57:00, Duration: 30 day, Stop date: 06/11/15 12:56:00 Oxycodone 10 mg, Route: Inactive [facility] PO, Drug form: 2014 Medical TAB, Q4H, Center Dosing Weight 76.2, kg, PRN Pain Score 7-10, Start date: 05/12/15 12:57:00, Duration: 30 day, Stop date: 06/11/15 12:56:00 Hydromorphone 0.5 mg, Route: Inactive [facility] IVP, Q5Min, 2014 Medical Dosing Weight Center 76.2, kg, PRN Pain Score 7-10, Start date: 05/12/15 12:57:00, Duration: 4 doses or times, Stop date: Limited # of times Meperidine 12.5 mg, Inactive [facility] Route: IVP, 2014 Medical Q30Min, Dosing Center Weight 76.2, kg, PRN Other -See Comment, For shivering, Start date: 05/12/15 12:57:00, Duration: 2 doses or times, Stop date: Limited # of times Ancef 2 gm, Route: Inactive [place] IVPB, ONCE, 2014 Medical Dosing Weight Center 76.2, kg, Start date: 05/12/15 11:55:00, Stop date: 05/12/15 11:55:00 Albumin Human, FPC 100 gm, 400 Inactive [place] 250 MG/ML mL, Route: IV, 2014 Medical Injectable Drug form: [place] Solution INJ, ONCE, Dosing Weight 76.2, kg, Start date: 05/12/15 9:56:00, Stop date: 05/12/15 9:56:00Notes: Lot #: Mfg: (Same as: Plasbumin-25) "blood product derivative" MEDICATION WASTE Product Size: 25 gm Product Wasted: ___ gm Lactulose 30 gm, 45 mL, No Longer [place] Route: PO, Active 2014 Medical Drug Form: [place] SYRP, kg, BID, Start date: 05/11/15 17:00:00, Duration: 30 day, Stop date: 06/10/15 9:00:00Notes: (Same as:Chronulac) D5W 1/2NS + KCL 1,000 mL, No Longer [place] 20mEq/L 1000ml Rate: 75 Active 2014 Medical (Premix) 1,000 mL ml/hr, Infuse [place] over: 13.3 hr, Route: IV, Dosing Weight 76.2 kg, Total Volume: 1,000, Start date: 05/11/15 11:37:00, Stop date: 06/11/15 0:01:00Notes: PREMIX IV - Do Not Alter Wellbutrin SR 150 mg, 1 tab, No Longer [place] Route: PO, Active 2014 Medical Drug form: [place] ERTAB, Daily, Dosing Weight 76.2, kg, Start date: 05/11/15 9:00:00, Duration: 30 day, Stop date: 06/09/15 9:00:00Notes: (Do not crush) (Same As: Wellbutrin SR) Benadryl 50 mg, 1 cap, No Longer [place] Route: PO, Active 2014 Medical Drug form: [place] CAP, BID, Dosing Weight 76.2, kg, PRN [...] Form: 2014 Medical Quadrivalent SUSP, Daily, Center [id number] Start date: 05/10/15 10:00:00, Duration: 1 doses [...] - lidocaine viscous 7.5 mL Albumin Human, FPC 25 gm, 100 mL, Inactive [place] 250 MG/ML Route: IVPB, 2014 Medical Injectable Drug form: [facility] Solution INJ, Q6H, Dosing Weight 76.2, kg, Start date: 05/09/15 18:00:00, Duration: 6 doses or times, Stop date: 05/11/15 0:00:00Notes: Lot #: Mfg: (Same as: Plasbumin-25) "blood product derivative" MEDICATION WASTE Product Size: 25 gm Product Wasted: ___ gm Albumin Human, FPC 25 gm, 500 mL, No Longer [place] 50 MG/ML Route: IV, Active 2014 Medical Injectable Drug Form: Center Solution INJ, Dosing Weight 76.2, kg, Q6H, NOW, Start date: 05/09/15 16:55:00, Duration: 30 day, Stop date: 06/08/15 12:00:00Notes: LOT#: Mfg: (Same as: Albuminar) "blood product derivative" Zofran 4 mg, 2 mL, No Longer [place] Route: IV, Active 2014 Medical Drug form: [...] of times Ondansetron 4 mg, Route: Inactive [facility] IVP, ONCE, 2014 Medical Dosing Weight Center 76.2, kg, PRN Nausea & Vomiting, Start date: 05/09/15 15:29:00 Promethazine 6.25 mg, Inactive [place] Route: IVPB, 2014 Medical ONCE, Dosing Center Weight 76.2, kg, PRN Nausea & Vomiting, Start date: 05/09/15 15:29:00 Flumazenil 0.2 mg, Route: Inactive [place] IVP, PRN, 2014 Medical Dosing Weight Center 76.2, kg, PRN Benzodiazepine Reversal, Initial dose, Start date: 05/09/15 15:29:00, Duration: 30 day, Stop date: 06/08/15 15:28:00 Flagyl 500 mg, 100 No Longer [facility] mL, Route: Active 2014 Medical IVPB, Drug Center form: INJ, [id number], Dosing Weight 76.2, kg, Start date: 05/09/15 15:00:00, Duration: 30 day, Stop date: 06/08/15 9:00:00Notes: (Same as: Flagyl) Avoid alcohol. Ciprofloxacin 400 mg, 200 No Longer [facility] mL, Route: IV, Active 2014 Medical Drug form: Center INJ, [id number], Dosing Weight 76.2, kg, Start date: 05/09/15 14:00:00, Duration: 14 day, Stop date: 05/23/15 2:00:00Notes: Do not refrigerate remove patch 1 patch, No Longer [facility] Route: TOP, Active 2014 Medical Drug form: [place] ERFILM, Daily, Start date: 05/09/15 9:00:00, Duration: 30 day, Stop date: 06/07/15 9:00:00Notes: Remove old patch before application of new patch. influenza virus 0.5 mL, Route: No Longer [place] vaccine, IM, Drug Form: Active 2014 [facility] inactivated SUSP, Daily, Center Start date: 05/09/15 9:00:00, Duration: 1 doses or times, Stop date: 05/09/15 9:00:00Notes: (Same as: Fluzone Quadrivalent) For 3 years of age and older (0.5 mL IM) Shake well before use pneumococcal 0.5 mL, Route: Inactive [facility] capsular IM, Drug Form: 2014 Medical polysaccharide INJ, Daily, Center type 1 vaccine / Start date: pneumococcal 05/09/15 capsular 9:00:00, polysaccharide Duration: 1 type 10A vaccine / doses or pneumococcal times, Stop capsular date: 05/09/15 polysaccharide 9:00:00Notes: type 11A vaccine / (Same as: pneumococcal Pneumovax 23) capsular Refrigerate polysaccharide type 12F vaccine / pneumococcal capsular polysacchar Nicotine 21 mg, 1 No Longer [facility] patch, Route: Active 2014 Medical TOP, Drug [...] Aldactone) Lasix 80 mg, 1 tab, Inactive [facility] Route: PO, 2014 Medical Drug form: Center TAB, Daily, kg, Start date: 05/09/15 9:00:00, Duration: 30 day, Stop date: 06/07/15 9:00:00Notes: (Same as: Lasix) May cause GI upset. Give with food or milk. Albumin Human, FPC 100 gm, 400 Inactive [facility] 250 MG/ML mL, Route: IV, 2014 Medical Injectable Drug form: [place] Solution INJ, ONCE, Dosing Weight 76.2, kg, Priority: STAT, Start date: 05/09/15 8:15:00, Stop date: 05/09/15 8:15:00Notes: Lot #: Mfg: (Same as: Plasbumin-25) "blood product derivative" MEDICATION WASTE Product Size: 25 gm Product Wasted: ___ gm Tramadol 50 mg, 1 tab, No Longer [place] Route: PO, Active 2014 Medical Drug form: [place] TAB, Q4H, Dosing Weight 76.2, kg, PRN Pain Score 1-3, Start date: 05/08/15 22:08:00, Duration: 30 day, Stop date: 06/07/15 22:07:00Notes: Not to exceed 400mg/day. (Same As: Ultram) Lactulose 30 gm, 45 mL, No Longer [place] Route: PO, Active 2014 Medical Drug Form: [place] SYRP, kg, TID, Start date: 05/08/15 13:00:00, Duration: 30 day, Stop date: 06/07/15 9:00:00Notes: (Same as:Chronulac) Albumin Human, FPC 75 gm, 300 mL, Inactive [place] 250 MG/ML Route: IV, 2014 Medical Injectable Drug form: [place] Solution INJ, ONCE, kg, Priority: STAT, Start date: 05/08/15 12:00:00, Stop date: 05/08/15 12:00:00Notes: Lot #: Mfg: (Same as: Plasbumin-25) "blood product derivative" MEDICATION WASTE Product Size: 25 gm Product Wasted: ___ gm Spironolactone 300 mg, PO, No Longer [facility] Daily, # 60 Active 2014 Medical tab, 0 Center Refill(s) Lactulose 30 mg=, PO, No Longer [facility] TID, 0 Active 2014 Medical Refill(s) Center Lasix 80 mg, Daily, No Longer [facility] 0 Refill(s) Active 2014 Medical Center Allergies, Adverse Reactions, Alerts No Known Medication Allergies Immunizations Immunization Date Site Status Last Updated Comments Source Given hepatitis B Left completed Gio [facility] adult vaccine 6 [facility] hepatitis B Right completed Baron [facility] adult vaccine 5 [facility]DC pneumococcal Right completed Sanju [facility] 23-valent 5 deltoid Medical vaccine Center,[facility] EDDC influenza virus Left completed Paul [facility], [facility] inactivated Center,[facility] EDPA Results Order Name Results Value Reference Date Interpretation Comments Source Range BODY Albumin BF 0.7 09/14 FLUIDS [facility] BODY Alb BF Type Ascites 09/14 FLUIDS *NA* [facility] (09/14/18 2:25 PM) BODY LDH BF Type Ascites 09/14 FLUIDS *NA* [facility] (09/14/18 2:25 PM) BODY LDH BF 52 09/14 FLUIDS [facility] BODY Clarity BF Clear Clear 09/14 [facility] (09/14/18 2:25 PM) [facility] BODY Color BF Yellow Colorless 09/14 [facility] (09/14/18 2:25 PM) [facility] BODY WBC BF 149 09/14 FLUIDS [facility] BODY Lymph BF 53 09/14 FLUIDS [facility] BODY Segs BF 14 09/14 FLUIDS [facility] BODY RBC BF 633 09/14 FLUIDS [facility] BODY CellCnt BF Ascites 09/14 FLUIDS Type (09/14/18 2:25 PM) /2018 [facility] BODY Meso BF Few 09/14 FLUIDS (09/14/18 2:25 PM) [facility] BODY Macrophage 33 09/14 FLUIDS BF [facility] BODY Gluc BF Type Ascites 09/14 FLUIDS *NA* [facility] (09/14/18 2:25 PM) BODY Glucose BF 107 09/14 [facility] Gram Stain No Organisms Seen 09/14 Report No WBC's [facility] Culture: 48 Hour 09/14 Aspirate/Bod Report - /2018 [facility] y No Growth, Fluid/Tissue Holding CHEM PANEL eGFR 38 09/14 Result Comment: The [facility] eGFR is calculated using the CKD-EPI formula. [...] AGAP 13.5 10.0 - 09/14 MH 20.0 [facility] HEMATOLOGY Eosinophils 8.6 0.0 - 4.0 09/14 [facility] HEMATOLOGY Basophils 1.0 0.0 - 1.0 09/14 [facility] HEMATOLOGY Lymphocytes 0.5 1.0 - 5.5 09/14 MH # /2019 [facility] HEMATOLOGY Neutrophils 2.4 1.5 - 8.1 09/14 MH # /2019 [facility] HEMATOLOGY Lymphocytes 13.0 20.0 - 09/14 MH 40.0 /2019 [facility] HEMATOLOGY Monocytes 13.9 2.0 - 12.0 09/14 /2018 [facility] HEMATOLOGY Eosinophils 0.3 0.0 - 0.5 09/14 MH # /2019 [facility] HEMATOLOGY Monocytes # 0.5 0.0 - 0.8 09/14 [facility] HEMATOLOGY Microcyte 3+ None Seen 09/14 *NA* /2018 [facility] (09/14/18 9:29 AM) HEMATOLOGY Segs 63.5 45.0 - 09/14 MH 75.0 /2018 [facility] HEMATOLOGY PTT 41.2 22.9 - 09/14 MH 35.8 /2018 [facility] HEMATOLOGY INR 1.23 0.85 - 09/14 MH 1.17 /2018 [facility] HEMATOLOGY PT 15.3 12.0 - 09/14 MH 14.7 /2018 [facility] HEMATOLOGY MCH 20.9 27.0 - 09/14 MH 31.0 /2018 [facility] HEMATOLOGY RDW 17.9 11.5 - 09/14 14.5 /2018 [facility] HEMATOLOGY Platelet 74 133 - 450 09/14 /2018 [facility] HEMATOLOGY MPV 9.5 7.4 - 10.4 09/14 /2018 [facility] HEMATOLOGY MCV 67.4 80.0 - 09/14 MH 94.0 /2018 [facility] HEMATOLOGY MCHC 31.0 32.0 - 09/14 MH 36.0 /2018 [facility] HEMATOLOGY Hct 23.0 42.0 - 09/14 54.0 /2018 [facility] HEMATOLOGY RBC 3.42 4.70 - 09/14 MH 6.10 /2018 [facility] HEMATOLOGY Hgb 7.1 14.0 - 09/14 MH 18.0 /2018 [facility] HEMATOLOGY WBC 3.8 3.7 - 10.4 09/14 /2018 [facility] URINE AND UA Mucus Few /LPF None Seen 09/14 STOOL /LPF /2018 [facility] URINE AND UA Leuk Est Negative Negative 09/14 STOOL (09/14/18 9:29 AM) /2018 [place] URINE AND UA WBC 2 0 - 5 09/14 STOOL /2018 [facility] URINE AND UA Sq Epi Occasional Few /LPF 09/14 STOOL /LPF [facility] URINE AND UA Glucose Negative Negative 09/14 STOOL *NA* /2018 [place] (09/14/18 9:29 AM) URINE AND UA Protein Negative Negative 09/14 STOOL (09/14/18 9:29 AM) [facility] URINE AND UA Blood Large Negative 09/14 STOOL *ABN* /2018 [facility] (09/14/18 9:29 AM) URINE AND UA <=1.0 0.1 - 1.0 09/14 STOOL Urobilinogen mg/dL [facility] URINE AND UA Nitrite Negative Negative 09/14 STOOL (09/14/18 9:29 AM) [place] URINE AND UA Bili Negative Negative 09/14 STOOL *NA* [facility] (09/14/18 9:29 AM) URINE AND UA Bacteria [...] UA Ketones Negative Negative 09/14 STOOL *NA* [facility] (09/14/18 9:29 AM) ELECTROLYT Potassium 5.0 3.5 - 5.1 03/20 ES Lvl [facility] ELECTROLYT CO2 26 24 - 32 03/20 ES [facility] ELECTROLYT Chloride Lvl 106 95 - 109 03/20 ES [facility] ELECTROLYT eGFR 43 03/20 Result Comment: The [facility] eGFR is calculated using the CKD-EPI formula. [...] ES [place] CHEM PANEL eGFR 38 03/19 [facility] Comment: The [facility] eGFR is calculated using the CKD-EPI formula. [...] Bili Total 0.9 0.2 - 1.3 03/19 [facility] CHEM PANEL Albumin Lvl 2.5 3.5 - [...] PANEL Magnesium 1.9 1.8 - 2.4 08/ [facility] HEMATOLOGY Eosinophils 0.9 0.0 - 0.5 08/05 # /2017 [facility] HEMATOLOGY Basophils # 0.1 0.0 - 0.2 08/ [facility] HEMATOLOGY Eosinophils 8.4 0.0 - 4.0 08/ [facility] HEMATOLOGY Basophils 1.1 0.0 - 1.0 08/ [facility] HEMATOLOGY Neutrophils 7.5 1.5 - 8.1 08/ # /2017 [facility] HEMATOLOGY Lymphocytes 0.7 1.0 - 5.5 08/ # /2017 [facility] HEMATOLOGY Monocytes # 1.1 0.0 - 0.8 08 [facility] HEMATOLOGY Segs 72.9 45.0 - 08/05 75.0 /2017 [facility] HEMATOLOGY Lymphocytes 7.0 20.0 - 08/05 40.0 /2017 [facility] HEMATOLOGY Monocytes 10.6 2.0 - 12.0 08/ [facility] HEMATOLOGY RBC 3.15 4.70 - 08/05 MH 6.10 [facility] HEMATOLOGY WBC 10.2 3.7 - 10.4 08/ [facility] HEMATOLOGY Hgb 8.2 14.0 - 08/05 18.0 [facility] HEMATOLOGY Hct 25.9 42.0 - 08/05 MH 54.0 /2017 [facility] HEMATOLOGY MCV 82.4 80.0 - 08/ MH 94.0 /2017 [facility] HEMATOLOGY MCH 25.9 27.0 - 08 MH 31.0 /2017 [facility] HEMATOLOGY MCHC 31.4 32.0 - 08 MH 36.0 /2017 [facility] HEMATOLOGY RDW 17.8 11.5 - 08 MH 14.5 /2017 [facility] HEMATOLOGY Platelet 102 133 - 450 03/19 [facility] HEMATOLOGY MPV 8.9 7.4 - 10.4 03/19 [facility] BODY Clarity BF Clear Clear 03/18 FLUIDS (03/18/18 5:07 PM) /2017 [facility] BODY Color BF Zuri 03/18 FLUIDS /2017 [facility] BODY Lymph BF 70 03/18 FLUIDS [facility] BODY Macrophage 9 03/18 FLUIDS BF [facility] BODY Segs BF 19 03/18 FLUIDS /2017 [facility] BODY Meso BF Occasional 03/18 FLUIDS (03/18/18 5:07 PM) [facility] BODY CellCnt BF Ascites 03/18 FLUIDS Type (03/18/18 5:07 PM) /2017 [facility] BODY Eos BF 2 03/18 FLUIDS [facility] BODY WBC BF 82 03/18 FLUIDS /2017 [facility] BODY RBC BF 2880 03/18 FLUIDS [facility] Gram Stain Rare Wbc'S; 03/18 Report No Organisms Seen /2017 [facility] Culture: No Growth 03/18 Aspirate/Bod /2017 [facility] y Fluid/Tissue CARDIAC Total CK 75 12 - 191 03/18 ENZYMES [facility] CARDIAC CK MB 1.7 0.5 - 3.6 03/18 ENZYMES [facility] CARDIAC CK MB Index 2.3 0.0 - 2.5 03/18 ENZYMES [facility] CHEM PANEL Albumin Lvl 2.4 3.5 - 5.0 03/18 [facility] CHEM PANEL ALT 21 0 - 65 03/18 [facility] CHEM PANEL AST 36 0 - 37 03/18 [facility] CHEM PANEL eGFR 39 03/18 [facility] Comment: The [facility] eGFR is calculated using the CKD-EPI formula. [...] Bili Direct 0.5 0.0 - 0.3 03/18 [facility] HEMATOLOGY Platelet 113 133 - 450 03/18 [facility] HEMATOLOGY MPV 9.1 7.4 - 10.4 08/ MH /2017 [facility] HEMATOLOGY MCHC 32.1 32.0 - 08/ MH 36.0 /2017 [facility] HEMATOLOGY MCH 26.2 27.0 - 08/04 MH 31.0 /2017 [facility] HEMATOLOGY RDW 17.5 11.5 - 08/ MH 14.5 /2017 [facility] HEMATOLOGY WBC 10.6 3.7 - 10.4 08/ MH /2017 [facility] HEMATOLOGY Hgb 8.4 14.0 - 08/ MH 18.0 /2017 [facility] HEMATOLOGY RBC 3.21 4.70 - 08/04 MH 6.10 /2017 [facility] HEMATOLOGY MCV 81.7 80.0 - 08/ MH 94.0 /2017 [facility] HEMATOLOGY Hct 26.2 42.0 - 08/ MH 54.0 /2017 [facility] HEMATOLOGY PTT 44.3 22.9 - 08/ 35.8 /2017 [facility] HEMATOLOGY INR 1.16 0.85 - 08 1.17 /2017 [facility] HEMATOLOGY PT 14.8 12.0 - 08/ MH 14.7 /2017 [facility] HEMATOLOGY Segs 66.2 45.0 - 08/ 75.0 /2017 [facility] HEMATOLOGY Monocytes 8.2 2.0 - 12.0 08/ MH /2017 [facility] HEMATOLOGY Lymphocytes 7.3 20.0 - 08/ 40.0 /2017 [facility] HEMATOLOGY Basophils 1.3 0.0 - 1.0 08/ /2017 [facility] HEMATOLOGY Eosinophils 17.0 0.0 - 4.0 / /2017 [facility] HEMATOLOGY Eosinophils 1.8 0.0 - 0.5 / MH # /2018 [facility] HEMATOLOGY Neutrophils 7.0 1.5 - 8.1 / # /2017 [facility] HEMATOLOGY Monocytes # 0.9 0.0 - 0.8 08/ /2017 [facility] HEMATOLOGY Lymphocytes 0.8 1.0 - 5.5 / # /2018 [facility] HEMATOLOGY Basophils # 0.1 0.0 - 0.2 03/18 /2017 [facility] URINE AND UA Color Ltyellow 03/18 STOOL /2017 [facility] URINE AND UA <=1.0 0.1 - 1.0 03/18 STOOL Urobilinogen mg/dL /2017 [facility] URINE AND UA Bili Negative Negative 03/18 STOOL *NA* /2017 [facility] (03/18/18 11:54 AM) URINE AND UA Blood [...] URINE AND UA Turbidity Clear Clear 03/18 [facility] (03/18/18 11:54 AM) [place] URINE AND UA pH 6.0 5.0 - 8.0 03/18 [place] URINE AND UA Protein Negative Negative 03/18 STOOL mg/dL mg/dL URINE AND UA Glucose Negative Negative 03/18 STOOL mg/dL mg/dL URINE AND UA Ketones Negative Negative 03/18 STOOL mg/dL mg/dL [facility] CHEM PANEL eGFR 53 02/02 Comment: The [facility] eGFR is calculated using the CKD-EPI formula. [...] PANEL CO2 24 24 - 32 02/02 [facility] CHEM PANEL Calcium Lvl 8.7 8.5 - 10.5 02/02 [facility] CHEM PANEL Sodium Lvl 144 135 - 145 02/02 [facility] CHEM PANEL Chloride Lvl 112 95 - 109 02/02 [facility] CHEM PANEL AGAP 12.4 10.0 - 02/02 20.0 [facility] CHEM PANEL Potassium 4.4 3.5 - 5.1 02/02 Lvl [facility] CHEM PANEL Glucose Lvl 95 70 - 99 02/02 [facility] CHEM PANEL Creatinine 1.46 0.50 - 02/02 Lvl 1.40 [place] CHEM PANEL BUN 23 7 - 22 02/02 [facility] CHEM PANEL Lactic Acid 1.1 0.5 - 2.2 02/02 Lvl [place] URINE AND UA Protein >=300 Negative 02/02 STOOL mg/dL mg/dL [place] URINE AND UA Glucose Negative Negative 02/02 STOOL mg/dL mg/dL [place] URINE AND UA Ketones Negative Negative 02/02 STOOL mg/dL mg/dL [place] URINE AND UA Bili Negative Negative 02/02 STOOL *NA* /2017 [place] (02/01/18 10:07 PM) URINE AND UA Sq Epi Occasional Few /LPF 02/02 STOOL /LPF [place] URINE AND UA Leuk Est Negative Negative 02/02 STOOL (02/01/18 10:07 PM) [place] URINE AND UA Nitrite Negative Negative 02/02 STOOL (02/01/18 10:07 PM) [place] URINE AND UA 4.0 0.1 - 1.0 02/02 STOOL Urobilinogen /2017 [place] URINE AND UA Blood Moderate Negative 02/02 STOOL *ABN* /2017 [place] (02/01/18 10:07 PM) URINE AND UA pH 5.0 5.0 - 8.0 02/02 STOOL [place] URINE AND UA Spec Grav 1.025 <=1.030 02/02 STOOL [place] URINE AND UA RBC 6 0 - 2 02/02 STOOL [place] URINE AND UA WBC 2 0 - 5 02/02 STOOL [place] URINE AND UA Bacteria Occasional None Seen 02/02 STOOL /HPF /HPF /2017 [place] URINE AND UA Mucus Few /LPF None Seen 02/02 STOOL /LPF /2017 [place] URINE AND UA Color Zuri Yellow 02/02 STOOL *ABN* /2017 [place] (02/01/18 10:07 PM) URINE AND UA Turbidity Clear Clear 02/02 STOOL (02/01/18 10:07 PM) [place] CARDIAC Troponin-I <0.02 0.00 - 02/02 MH ENZYMES 0.40 [place] CARDIAC proBNP 53 0 - 125 02/02 MH ENZYMES [place] CHEM PANEL Ammonia 75.0 <=45.0 02/02 uMol/L [place] CHEM PANEL Lipase Lvl 265 73 - 393 02/02 [place] CHEM PANEL A/G Ratio 0.5 0.7 - 1.6 02/02 [place] CHEM PANEL Globulin 4.2 2.7 - 4.2 02/02 [place] CHEM PANEL B/C Ratio 15 6 - 25 02/02 [place] CHEM PANEL AGAP 11.6 10.0 - 02/02 20.0 [place] CHEM PANEL eGFR 53 02/02 Result Comment: The [place] eGFR is calculated using the CKD-EPI formula. [...] Albumin Lvl 2.1 3.5 - 5.0 02/02 [place] CHEM PANEL Total 6.3 6.4 - 8.4 02/02 Protein [place] CHEM PANEL ALT 27 0 - 65 02/02 [place] CHEM PANEL Bili Total 0.7 0.2 - 1.3 02/02 [place] CHEM PANEL AST 38 0 - 37 02/02 [place] CHEM PANEL Alk Phos 146 39 - 136 02/02 [place] CHEM PANEL Calcium Lvl 8.3 8.5 - 10.5 02/02 [place] CHEM PANEL CO2 25 24 - 32 02/02 [place] CHEM PANEL Sodium Lvl 145 135 - 145 02/02 [place] CHEM PANEL Creatinine 1.46 0.50 - 02/02 MH Lvl 1.40 [place] CHEM PANEL BUN 22 7 - 22 02/02 [place] CHEM PANEL Glucose Lvl 91 70 - 99 02/02 [place] CHEM PANEL Chloride Lvl 113 95 - 109 02/02 [place] CHEM PANEL Potassium 4.6 3.5 - 5.1 02/02 MH Lvl /2017 [place] HEMATOLOGY Basophils # 0.1 0.0 - 0.2 02/02 [place] HEMATOLOGY Eosinophils 0.2 0.0 - 0.5 02/02 MH [place] HEMATOLOGY Segs-Bands # 3.3 1.5 - 8.1 02/02 [place] HEMATOLOGY Monocytes # 0.8 0.0 - 0.8 02/02 [place] HEMATOLOGY Lymphocytes 0.7 1.0 - 5.5 02/02 MH [place] HEMATOLOGY Eosinophils 4.9 0.0 - 4.0 02/02 [place] HEMATOLOGY Basophils 1.1 0.0 - 1.0 02/02 [place] HEMATOLOGY Monocytes 15.4 2.0 - 12.0 02/02 [place] HEMATOLOGY Lymphocytes 13.6 20.0 - 02/02 MH 40.0 [place] HEMATOLOGY Segs 65.0 45.0 - 02/02 MH 75.0 [place] HEMATOLOGY PTT 45.8 22.9 - 02/02 MH 35.8 [place] HEMATOLOGY WBC 5.1 3.7 - 10.4 02/02 [place] HEMATOLOGY Hct 31.2 42.0 - 02/02 MH 54.0 [place] HEMATOLOGY RBC 3.76 4.70 - 02/02 MH 6.10 [place] HEMATOLOGY Hgb 10.2 14.0 - 02/02 MH 18.0 [place] HEMATOLOGY MCV 82.9 80.0 - 02/02 MH 94.0 [place] HEMATOLOGY MCH 27.0 27.0 - 02/02 MH 31.0 /2017 [place] HEMATOLOGY MCHC 32.6 32.0 - 02/02 MH 36.0 [place] HEMATOLOGY Platelet 108 133 - 450 02/02 [place] HEMATOLOGY RDW 16.6 11.5 - 02/02 MH 14.5 [place] HEMATOLOGY MPV 8.5 7.4 - 10.4 02/02 [place] HEMATOLOGY PT 15.2 12.0 - 02/02 MH 14.7 [place] HEMATOLOGY INR 1.19 0.85 - 02/02 MH 1.17 /2017 [place] CARDIAC Troponin-I <0.02 0.00 - 03/23 ENZYMES 0.40 /2016 [place] CARDIAC Total CK 284 12 - 191 03/23 ENZYMES /2016 [place] CARDIAC CK MB 3.0 0.5 - 3.6 03/23 ENZYMES [place] CARDIAC BNP 108 <=100 03/23 ENZYMES pg/mL /2016 [place] CHEM PANEL eGFR 42 03/23 Result Comment: The [place] eGFR is calculated using the CKD-EPI formula. [...] PANEL CO2 29 24 - 32 03/23 [place] CHEM PANEL Bili Total 0.7 0.2 - 1.3 03/23 [place] CHEM PANEL Calcium Lvl 8.9 8.5 - 10.5 03/23 [place] CHEM PANEL ASPARTATE 42 0 - 37 08/09 MH TRANSAMINASE /2016 [place] CHEM PANEL Total 6.1 6.4 - 8.4 08/09 [facility] Protein /2016 [place] CHEM PANEL Alk Phos 104 39 - 136 08/09 [place] CHEM PANEL Glucose Lvl 138 70 - 99 08/09 [place] CHEM PANEL Albumin Lvl 2.1 3.5 - 5.0 08/09 /2016 [place] CHEM PANEL BUN 34 7 - 22 08/09 [place] CHEM PANEL Creatinine 1.78 0.50 - 08/09 MH Lvl 1.40 /2016 [place] CHEM PANEL Potassium 5.0 3.5 - 5.1 08/09 [facility] Lvl /2016 [place] CHEM PANEL Chloride Lvl 106 95 - 109 08/09 [place] CHEM PANEL Sodium Lvl 140 135 - 145 08/ [place] CHEM PANEL ALANINE 28 0 - 65 08/09 [facility] AMINOTRANSFE /2016 [place] CHEM PANEL AGAP 10.0 10.0 - 08/09 MH 20.0 [place] CHEM PANEL A/G Ratio 0.5 0.7 - 1.6 08/ [place] CHEM PANEL Globulin 4.0 2.7 - 4.2 08/ [place] CHEM PANEL B/C Ratio 19 6 - 25 08/ [place] HEMATOLOGY Monocytes # 0.7 0.0 - 0.8 08/ [place] HEMATOLOGY Lymphocytes 0.6 1.0 - 5.5 08/ MH # /2016 [place] HEMATOLOGY Segs 86.4 45.0 - 08/09 MH 75.0 [place] HEMATOLOGY Lymphocytes 6.3 20.0 - 08/09 MH 40.0 [place] HEMATOLOGY Eosinophils 0.1 0.0 - 4.0 08/ /2016 [place] HEMATOLOGY Monocytes 6.9 2.0 - 12.0 08/ [place] HEMATOLOGY Segs-Bands # 8.1 1.5 - 8.1 08/ [place] HEMATOLOGY Basophils 0.3 0.0 - 1.0 / [place] HEMATOLOGY INR 1.19 0.85 - 08/09 MH 1.17 [place] HEMATOLOGY PROTIME 15.4 12.0 - 08/09 MH 14.7 [place] HEMATOLOGY RDW 17.4 11.5 - 03/23 MH 14.5 /2016 [place] HEMATOLOGY MCH 27.0 27.0 - 03/23 MH 31.0 /2016 [place] HEMATOLOGY MCHC 33.2 32.0 - 03/23 MH 36.0 [place] HEMATOLOGY Platelet 81 133 - 450 03/23 [place] HEMATOLOGY MPV 8.1 7.4 - 10.4 03/23 [place] HEMATOLOGY MCV 81.4 80.0 - 03/23 MH 94.0 [place] HEMATOLOGY Hct 25.3 42.0 - 08 MH 54.0 [place] HEMATOLOGY WBC X 10x3 9.4 3.7 - 10.4 03/23 [place] HEMATOLOGY Hgb 8.4 14.0 - 03/23 MH 18.0 [place] HEMATOLOGY RBC X 10x6 3.11 4.70 - 03/23 MH 6.10 [place] URINE AND UA Glucose Negative Negative 03/22 STO[facility] (03/22/17 4:18 PM) [place] URINE AND UA Bacteria Rare 03/22 STOOL /2016 [place] URINE AND UA RBC 3-5 /HPF 0 - 2 03/22 STOOL [place] URINE AND UA pH 5.0 5.0 - 8.0 03/22 STOOL [place] URINE AND UA Spec Grav 1.010 <=1.030 03/22 STOOL /2016 [place] URINE AND UA Blood Moderate Negative 03/22 [facility] *ABN* /2016 [place] (03/22/17 4:18 PM) URINE AND UA 0.2 0.1 - 1.0 03/22 [facility] Urobilinogen /2016 [place] URINE AND UA Nitrite Negative Negative 03/22 [facility] (03/22/17 4:18 PM) [place] URINE AND UA Leuk Est Negative Negative 03/22 [facility] (03/22/17 4:18 PM) [place] URINE AND UA WBC 0-2 /HPF None Seen 03/22 STO[facility] /HPF /2016 [place] URINE AND UA Sq Epi None Seen Few 03/22 [facility] (03/22/17 4:18 PM) [place] URINE AND UA Bili Negative Negative 03/22 [facility] *NA* /2016 [place] (03/22/17 4:18 PM) URINE AND UA Ketones Negative Negative 03/22 [facility] *NA* /2016 [place] (03/22/17 4:18 PM) URINE AND UA Protein Negative Negative 03/22 [facility] (03/22/17 4:18 PM) [place] URINE AND UA Color Yellow Yellow 03/22 [facility] *NA* /2016 [place] (03/22/17 4:18 PM) URINE AND UA Turbidity Clear Clear 03/22 [facility] (03/22/17 4:18 PM) [place] CARDIAC CK-MB INDEX 1.2 0.0 - 2.5 03/22 MH ENZYMES [place] CARDIAC Troponin-I 0.02 0.00 - 03/22 ENZYMES 0.40 [place] CARDIAC CK MB 3.1 0.5 - 3.6 03/22 ENZYMES [place] CARDIAC Total CK 260 12 - 191 03/22 ENZYMES [place] CHEM PANEL eGFR 45 03/22 Result Comment: The [place] eGFR is calculated using the CKD-EPI formula. [...] PANEL Globulin 3.8 2.7 - 4.2 03/22 [place] CHEM PANEL B/C Ratio 17 6 - 25 03/22 [place] CHEM PANEL A/G Ratio 0.5 0.7 - 1.6 03/22 [place] CHEM PANEL Chloride Lvl 106 95 - 109 03/22 [place] CHEM PANEL CO2 27 24 - 32 03/22 [place] CHEM PANEL Sodium Lvl 139 135 - 145 03/222016 [place] CHEM PANEL Potassium 4.3 3.5 - 5.1 08/08 [facility] Lvl /2016 [place] CHEM PANEL Calcium Lvl 8.3 8.5 - 10.5 08/08 MH /2016 [place] CHEM PANEL AGAP 10.3 10.0 - 08/08 MH 20.0 /2016 [place] CHEM PANEL Bili Total 1.0 0.2 - 1.3 08/08 MH /2016 [place] CHEM PANEL Total 5.8 6.4 - 8.4 08/08 [facility] Protein /2016 [place] CHEM PANEL ASPARTATE 43 0 - 37 08/08 MH [place] CHEM PANEL Alk Phos 127 39 - 136 08/08 MH /2016 [place] CHEM PANEL Creatinine 1.69 0.50 - 08/08 MH Lvl 1.40 [place] CHEM PANEL Glucose Lvl 117 70 - 99 08/08 [place] CHEM PANEL BUN 28 7 - 22 08/08 /2016 [place] CHEM PANEL Albumin Lvl 2.0 3.5 - 5.0 08/08 MH /2016 [place] CHEM PANEL ALANINE 25 0 - 65 08/08 AMINOTRANS /2016 [facility] HEMATOLOGY Basophils 1.1 0.0 - 1.0 08/08 MH /2016 [place] HEMATOLOGY Lymphocytes 0.8 1.0 - 5.5 08/08 MH # /2017 [place] HEMATOLOGY Monocytes # 0.6 0.0 - 0.8 08/08 MH /2016 [place] HEMATOLOGY Segs 69.2 45.0 - 08/08 MH 75.0 /2016 [place] HEMATOLOGY Lymphocytes 14.3 20.0 - 08/08 MH 40.0 [place] HEMATOLOGY Monocytes 10.0 2.0 - 12.0 08/08 MH /2016 [place] HEMATOLOGY Eosinophils 5.4 0.0 - 4.0 08/08 MH /2016 [place] HEMATOLOGY Segs-Bands # 3.9 1.5 - 8.1 08/08 MH /2016 [place] HEMATOLOGY Eosinophils 0.3 0.0 - 0.5 08/08 MH # /2016 [place] HEMATOLOGY Basophils # 0.1 0.0 - 0.2 08/08 MH /2016 [place] HEMATOLOGY MPV 7.6 7.4 - 10.4 08/ MH /2016 [place] HEMATOLOGY MCHC 33.1 32.0 - 08/08 MH 36.0 /2016 [place] HEMATOLOGY Platelet 84 133 - 450 03/22 /2016 [place] HEMATOLOGY RDW 17.6 11.5 - 08 14.5 /2016 [place] HEMATOLOGY RBC X 10x6 3.17 4.70 - 03/22 MH 6.10 /2016 [place] HEMATOLOGY WBC X 10x3 5.6 3.7 - 10.4 08 [place] HEMATOLOGY Hgb 8.6 14.0 - 03/22 MH 18.0 /2016 [place] HEMATOLOGY Hct 25.9 42.0 - 03/22 MH 54.0 /2016 [place] HEMATOLOGY MCH 27.0 27.0 - 03/22 MH 31.0 /2016 [place] HEMATOLOGY MCV 81.5 80.0 - 03/22 94.0 [place] CHEM PANEL eGFR 48 05/13 Result Comment: [...] PANEL CO2 19 24 - 32 05/13 [facility] CHEM PANEL Chloride Lvl 109 95 - 109 05/13 [facility] CHEM PANEL Glucose Lvl 112 70 - 99 05/13 [facility] CHEM PANEL Potassium 5.4 3.5 - 5.1 05/13 [facility] CHEM PANEL Sodium Lvl 134 135 - 145 05/13 2014 [facility] CHEM PANEL Creatinine 1.6 0.5 - 1.4 05/13 [facility] CHEM PANEL BUN 32 7 - 22 05/13 [facility] CHEM PANEL Calcium Lvl 8.9 8.5 - 10.5 05/13 [facility] CHEM PANEL AGAP 11.4 10.0 - 05/13 20.0 [facility] CHEM PANEL Alk Phos 69 39 - 136 05/13 [facility] CHEM PANEL Bili Direct 0.3 0.0 - 0.3 05/13 [facility] CHEM PANEL Bili Total 0.7 0.2 - 1.3 05/13 [facility] CHEM PANEL Total 6.5 6.4 - 8.4 05/13 [facility] CHEM PANEL AST 36 0 - 37 05/13 [facility] CHEM PANEL ALT 33 0 - 65 05/13 [facility] CHEM PANEL Albumin Lvl 4.4 3.5 - 5.0 05/13 [facility] CHEM PANEL Globulin 2.1 2.0 - 4.0 05/13 [facility] CHEM PANEL Bili 0.4 0.0 - 1.0 05/13 [facility] CHEM PANEL A/G Ratio 2.1 0.7 - 1.6 05/13 [facility] HEMATOLOGY Platelet 59 133 - 450 05/13 [facility] HEMATOLOGY MPV 8.9 7.4 - 10.4 05/13 [facility] HEMATOLOGY MCH 28.6 27.0 - 05/13 [place] 31.0 [facility] HEMATOLOGY Hgb 8.9 14.0 - 05/13 18.0 [facility] HEMATOLOGY MCV 89.2 80.0 - 05/13 [place] 94.0 /2014 [facility] HEMATOLOGY MCHC 32.0 32.0 - 05/13 [place] 36.0 [facility] HEMATOLOGY RDW 14.3 11.5 - 05/13 [place] 14.5 [facility] HEMATOLOGY Hct 27.9 42.0 - 05/13 [place] 54.0 [facility] HEMATOLOGY WBC 10.2 3.7 - 10.4 05/13 [facility] HEMATOLOGY RBC 3.13 4.70 - 05/13 [place] 6.10 [facility] HEMATOLOGY Monocytes # 0.9 0.0 - 0.8 05/13 [facility] HEMATOLOGY Lymphocytes 0.3 1.0 - 5.5 05/13 [place] # /2014 [facility] HEMATOLOGY Segs-Bands # 8.9 1.5 - 8.1 05/13 [facility] HEMATOLOGY Eosinophils 0.2 0.0 - 4.0 05/13 [facility] HEMATOLOGY Monocytes 8.9 2.0 - 12.0 05/13 [facility] HEMATOLOGY Basophils 0.4 0.0 - 1.0 05/13 [facility] HEMATOLOGY Lymphocytes 3.3 20.0 - 05/13 [place] 40.0 [facility] HEMATOLOGY Segs 87.2 45.0 - 05/13 [place] 75.0 [facility] HEMATOLOGY Plt Morph Normal 05/13 [facility] (05/13/15 4:33 AM) /2014 [facility] HEMATOLOGY RBC Morph Normal 05/13 [facility] (05/13/15 4:33 AM) /2014 [facility] CHEM PANEL ALT 49 0 - 65 05/12 2014 [facility] CHEM PANEL Total 5.9 6.4 - 8.4 05/12 [facility] Protein [facility] CHEM PANEL AST 55 0 - 37 05/12 [facility] CHEM PANEL Albumin Lvl 3.9 3.5 - 5.0 05/12 [facility] CHEM PANEL Alk Phos 88 39 - 136 05/12 [facility] CHEM PANEL Bili Total 0.9 0.2 - 1.3 05/12 [facility] CHEM PANEL Bili Direct 0.3 0.0 - 0.3 05/12 [facility] CHEM PANEL Bili 0.6 0.0 - 1.0 05/12 Indirect [facility] CHEM PANEL Globulin 2.0 2.0 - 4.0 05/12 [facility] CHEM PANEL A/G Ratio 2.0 0.7 - 1.6 05/12 [facility] ELECTROLYT AGAP 13.4 10.0 - 05/12 [facility] ES 20.0 [facility] ELECTROLYT eGFR 52 05/12 Result [facility] /2014 Comment: The Medical eGFR is Center [...] ELECTROLYT Potassium 4.4 3.5 - 5.1 05/12 [facility] ELECTROLYT Calcium Lvl 8.6 8.5 - 10.5 05/12 [facility]2014 [facility] ELECTROLYT Chloride Lvl 108 95 - 109 05/[address] ELECTROLYT CO2 21 24 - 32 05/[address] ELECTROLYT Glucose Lvl 130 70 - 99 05/[address] ELECTROLYT BUN 29 7 - 22 05/[address] ELECTROLYT Creatinine 1.5 0.5 - 1.4 05/12 [facility] ELECTROLYT Sodium Lvl 138 135 - 145 05/[address] HEMATOLOGY Basophils # 0.1 0.0 - 0.2 05/[address] HEMATOLOGY Monocytes # 0.7 0.0 - 0.8 05/[address] HEMATOLOGY Segs-Bands # 4.2 1.5 - 8.1 05/[address] HEMATOLOGY Eosinophils 0.4 0.0 - 0.5 05/12 [facility] /2014 [facility] HEMATOLOGY Lymphocytes 0.5 1.0 - 5.5 05/12 [facility]2014 [facility] HEMATOLOGY Basophils 1.5 0.0 - 1.0 05/[address] HEMATOLOGY Eosinophils 6.3 0.0 - 4.0 05/[address] HEMATOLOGY Monocytes 12.7 2.0 - 12.0 05/[address] HEMATOLOGY Lymphocytes 7.9 20.0 - 05/12 [facility] [place] 40.0 /2014 [facility] HEMATOLOGY Segs 71.6 45.0 - 05/12 [place] 75.0 /2014 [facility] HEMATOLOGY PTT 49.4 22.9 - 05/12 [place] 35.8 /2014 [facility] HEMATOLOGY INR 1.75 0.85 - 05/12 [place] 1.17 /2014 [facility] HEMATOLOGY PT 20.8 12.0 - 05/12 [facility] 14.7 /2014 [facility] HEMATOLOGY RDW 14.6 11.5 - 05/12 [facility] 14.5 /2014 [facility] HEMATOLOGY MCHC 32.4 32.0 - 05/12 [facility] 36.0 /2014 [facility] HEMATOLOGY WBC 5.8 3.7 - 10.4 05/12 [facility] HEMATOLOGY MCH 28.6 27.0 - 05/12 [facility] 31.0 /2014 [facility] HEMATOLOGY MCV 88.4 80.0 - 05/12 [facility] 94.0 /2014 [facility] HEMATOLOGY Hct 28.4 42.0 - 05/12 [facility] 54.0 /2014 [facility] HEMATOLOGY RBC 3.21 4.70 - 05/12 [facility] 6.10 /2014 [facility] HEMATOLOGY Hgb 9.2 14.0 - 05/12 [facility] 18.0 /2014 [facility] HEMATOLOGY MPV 8.9 7.4 - 10.4 05/12 [facility] HEMATOLOGY Platelet 52 133 - 450 05/12 [facility] CHEM PANEL Bili Direct 0.4 0.0 - 0.3 05/11 [facility] CHEM PANEL Bili 1.0 0.0 - 1.0 05/11 [facility] CHEM PANEL Bili Total 1.4 0.2 - 1.3 05/11 [facility] CHEM PANEL Alk Phos 77 39 - 136 05/11 [facility] CHEM PANEL Albumin Lvl 4.2 3.5 - 5.0 05/11 [facility] CHEM PANEL AST 93 0 - 37 05/11 [facility] CHEM PANEL ALT 60 0 - 65 05/11 [facility] CHEM PANEL A/G Ratio 2.5 0.7 - 1.6 05/11 [facility] CHEM PANEL Globulin 1.7 2.0 - 4.0 05/11 [facility] CHEM PANEL Total 5.9 6.4 - 8.4 05/11 [facility] CHEM PANEL Magnesium 2.2 1.8 - 2.4 05/11 [facility] CHEM PANEL Phosphorus 2.2 2.5 - 4.5 05/11 [facility] ELECTROLYT AGAP 11.6 10.0 - 05/11 [facility] 20.0 [facility] ELECTROLYT Potassium 4.6 3.5 - 5.1 05/11 [facility] ELECTROLYT Calcium Lvl 8.9 8.5 - 10.5 05/11 [facility] ELECTROLYT CO2 21 24 - 32 05/11 [facility] ELECTROLYT Chloride Lvl 107 95 - 109 05/11 [facility] ELECTROLYT BUN 27 7 - 22 05/11 [facility] ELECTROLYT Glucose Lvl 106 70 - 99 05/11 [facility] ELECTROLYT Sodium Lvl 135 135 - 145 05/11 [facility] ELECTROLYT Creatinine 1.3 0.5 - 1.4 05/11 [facility] ELECTROLYT eGFR 62 05/11 [facility] Comment: The Medical eGFR is Center [...] BMI. HEMATOLOGY Hgb 9.4 14.0 - 05/11 [facility] 18. [facility] HEMATOLOGY RBC 3.18 4.70 - 05/11 [facility] 6. [facility] HEMATOLOGY RDW 14.3 11.5 - 05/11 [place] 14. [facility] HEMATOLOGY WBC 6.8 3.7 - 10.4 05/11 [facility] HEMATOLOGY Platelet 50 133 - 450 05/11 [facility] HEMATOLOGY MPV 8.9 7.4 - 10.4 05/11 [facility] HEMATOLOGY MCHC 33.7 32.0 - 05/11 [place] 36.0 [facility] HEMATOLOGY MCH 29.5 27.0 - 05/11 [place] 31.0 [facility] HEMATOLOGY Hct 27.8 42.0 - 05/11 [place] 54.0 [facility] HEMATOLOGY MCV 87.4 80.0 - 05/11 [place] 94.0 [facility] HEMATOLOGY Eosinophils 0.4 0.0 - 0.5 05/11 [facility] HEMATOLOGY Monocytes # 0.9 0.0 - 0.8 05/11 [facility] HEMATOLOGY Basophils # 0.1 0.0 - 0.2 05/11 [facility] HEMATOLOGY Lymphocytes 6.8 20.0 - 05/11 [place] 40.0 [facility] HEMATOLOGY Segs 72.9 45.0 - 05/11 [place] 75.0 [facility] HEMATOLOGY Monocytes 13.8 2.0 - 12.0 05/11 [facility] HEMATOLOGY Segs-Bands # 5.0 1.5 - 8.1 05/11 [facility] HEMATOLOGY Lymphocytes 0.5 1.0 - 5.5 05/11 [facility] HEMATOLOGY Eosinophils 5.6 0.0 - 4.0 05/11 [facility] HEMATOLOGY Basophils 0.9 0.0 - 1.0 05/11 [facility] CHEM PANEL Magnesium 2.3 1.8 - 2.4 05/10 [facility] CHEM PANEL Phosphorus 3.0 2.5 - 4.5 05/10 [facility] CHEM PANEL Phosphorus 3.4 2.5 - 4.5 05/09 [facility] CHEM PANEL Magnesium 2.1 1.8 - 2.4 05/09 [facility] HEMATOLOGY Eosinophils 0.4 0.0 - 0.5 05/09 [facility] HEMATOLOGY Basophils # 0.1 0.0 - 0.2 05/09 [facility] HEMATOLOGY Coag Index -1.8 -3.0-3.0 - 05/09 [facility] 3.0 [facility] HEMATOLOGY TEG Data See Note 05/09 [facility] (05/09/15 4:38 PM) [facility] HEMATOLOGY Ly30 0.3 0.0 - 7.5 05/09 [facility] HEMATOLOGY G-value 4.6 4.5 - 11.0 05/09 [facility] HEMATOLOGY Max Amp 47.9 50.0 - 05/09 [place] 70.0 [facility] HEMATOLOGY Angle 53.3 53.0 - 05/09 [place] 72.0 [facility] HEMATOLOGY K-time 2.9 1.0 - 3.0 05/09 [facility] HEMATOLOGY R-time 4.3 5.0 - 10.0 05/09 [facility] HEMATOLOGY TEG Interp Thrombelas 05/09 [facility] tograph /2014 [facility] show shortened value of R and decreased value of MA. These findings are suggestive of enzymatic hypercoagu lation and thrombocyt openia. CPT:40837 BLOOD BANK RBC product Product available 05/09 [facility] RESULTS (05/09/15 11:00 AM) [facility] BLOOD BANK Antibody Negative 05/09 [facility] RESULTS Scrn (05/09/15 4:44 AM) /2014 [facility] BLOOD BANK ABO/Rh B POS 05/09 [facility] RESULTS /2014 [facility] HEMATOLOGY PTT 39.9 22.9 - 05/09 [place] 35.8 /2014 [facility] HEMATOLOGY INR 1.40 0.85 - 05/09 [place] 1.17 /2014 [facility] HEMATOLOGY PT 17.5 12.0 - 05/09 [facility] 14.7 /2014 [facility] IMMUNOLOGY HCV GENOTYPE 05/08 Result [facility] Genotype, 1a /2014 Comment: The Medical LiPA method used Center in this test is RT-PCR and reverse
h ybridization (Line Probe) of the 5' UTR and core
tamara on of the HCV genome.

The test was developed and its performance<b r/>characteri stics have been determined by
[employer]. It has not been cleared
o r approved by the U.S. Food and Drug
Admi nistration. The FDA has determined that
such clearance or approval is not necessary.
Performance characteristi cs refer to the
srini tical performance of the test.
htt p://education .Serstech.Stellarray
/faq/HCVGenot yping
Mica t Performed at:
[facility]
[address] [facility]
[place] [address] Merry Botello MD MOLECULAR HCV RNA [id number] 05/08 [facility] DIAGNOSTIC VirLoad /2014 [facility] MOLECULAR HCV RNA 5.8 05/08 [facility] DIAGNOSTIC Log10 /2014 [facility] TUMOR AFP 1.6 0.0 - 11.0 05/08 [facility] MARKERS [facility] URINE AND UA Ketones TR 05/08 [facility] STOOL [facility] URINE AND UA <=1.0 0.1 - 1.0 05/[address] [facility] Urobilinogen mg/dL /2014 [facility] URINE AND UA Bili Negative Negative 05/08 [facility] STOOL *NA* /2014 [facility] Protein 10 mg/dL Negative 05/08 [facility] STOOL mg/dL [facility] URINE AND UA Glucose Negative Negative 05/[address] [facility] mg/dL mg/dL [facility] URINE AND UA pH 5.5 5.0 - 8.0 05/08 [facility] STOOL [facility] URINE AND UA Turbidity Clear Clear 05/[address] [facility] (05/08/15 10:01 AM) [facility] URINE AND UA Spec Grav 1.025 <=1.[address] [facility] URINE AND UA Leuk Est Negative Negative 05/[address] [facility] (05/08/15 10:01 AM) [facility] URINE AND UA Nitrite Negative Negative 05/[address] [facility] (05/08/15 10:01 AM) [facility] URINE AND UA Blood Negative Negative 05/[address] [facility] (05/08/15 10:01 AM) /2014 [facility] URINE AND UA Bacteria Occasional None Seen 05/08 [facility] STOOL /HPF /HPF /2014 [facility] URINE AND UA RBC 1 0 - [address] [facility] URINE AND UA WBC 1 0 - [address] [facility] /2014 [facility] URINE AND UA Hyal Cast 3 0 - 2 05/[address] URINE AND UA Mucus Few /LPF None Seen 05/08 [facility] STOOL /LPF /2014 [facility] URINE AND UA Sq Epi None Seen 05/08 [facility]2014 [facility] URINE AND UA Color Yellow Yellow 05/[address] [facility] *NA* /2014 [facility] (05/08/15 10:01 AM) [place] CHEM PANEL B/C Ratio 16 6 - 25 05/08 [facility] /2014 [facility] HEMATOLOGY PTT 38.8 22.9 - 05/08 [facility] 35.8 /2014 [facility] HEMATOLOGY INR 1.39 0.85 - 05/08 [facility] 1.17 /2014 [facility] HEMATOLOGY PT 17.4 12.0 - 05/08 [facility] 14.7 /2014 [facility] Pathology Reports No Data Provided for This Section Diagnostic Reports Report Value Date Source Paracentesis w PROCEDURE: 09/14/2018 [facility] ultrasound guide VR Ultrasound-guided paracentesis. INDICATION: Ascites. Esophageal varices. COMPARISON: CT abdomen/pelvis with IV contrast from earlier on the same date. TECHNIQUE: The procedure, risks, benefits and alternatives were discussed. Informed consent was obtained. Timeout was performed prior to the procedure. The technical component of this study was performed by directly supervised physician communications assistant, Ivy Tavarez. The technical report is available in the electronic medical record. FINDINGS: Total volume of 1.8 L of clear yellow ascites was removed. IMPRESSION: 1. Technically successful ultrasound-guided paracentesis. Chest 2 views DX PROCEDURE: Chest, PA and lateral radiographs, 2 views. 09/14 [facility] INDICATION: Shortness of breath. Right-sided abdominal pain [...] interstitial infiltrates are difficult to exclude. SL: [id number] Liver vessels Doppler Patient Name: SHAKIRA GA 09/14/2018 [facility] : 1960; Age: 58 years y/o Male MR: [id number] Study: Liver vessels Doppler US 09/14/2018 9:38 [employer] [employer] Ordering Physician: Clinical Indication: - RUQ pain, [...] of the gallbladder. Questionable gallbladder sludge. SL: [id number] ED Abdomen/Pelvis IV PROCEDURE: 09/14/2018 [facility] contrast only CT CT abdomen and pelvis [...] of iterative reconstruction technique CT Radiation Dose: HDM=[id number] mGy-cm COMPARISON: None. FINDINGS: LOWER CHEST: Small [...] Generalized edema, anasarca. 6. Limited study. SL: [id number] Paracentesis w Patient Name: SHAKIRA GA 03/20/2018 [facility] ultrasound guide VR : 1960; Age: 57 years Male MR: [id number] Study: Paracentesis w ultrasound guide VR 03/20/2018 [...] local anesthesia. Using ultrasound guidance, a 5 Iranian sheathed needle was placed into the ascites. [...] space. Large right pleural effusion remained. SL: [id number] Liver w Liver vessels LIVER ULTRASOUND WITH DOPPLER: 03/18/2018 [facility] Doppler US HISTORY: Possible TIPS obstruction. FINDINGS: [...] in the remainder of the portal system. [id number] Abdomen/Pelvis wo IV Abdomen/Pelvis wo IV contrast CT 03/18/[address] [facility] [address] TECHNIQUE: Contiguous transaxial images of [...] CT of the abdomen and pelvis. SL: [id number] Chest 1view DX Chest 1view DX 03/18/2018 [facility] CLINICAL HISTORY: - cough COMPARISON: 02/01/2018 FINDINGS: [...] chest for a more thorough assessment. SL: [id number] Paracentesis w Patient Name: SHAKIRA GA 02/02/2018 [facility] ultrasound guide VR : 1960; Age: 57 years y/o Male MR: [id number] Study: Paracentesis w ultrasound guide VR 02/02/2018 1:33 AM CDT Ordering Physician: Clinical Indication: Other- See Reason for Consult - therapeutic paracentesis ; Comparison: None Timeout performed prior to the procedure. Sonographic guidance. Hard copy sonographic image recorded. 5-Iranian trocar catheter used for paracentesis access. 9 L of ascites fluid recovered uneventfully. Catheter removed. 50 g of albumin were adm inistered intravenously. Procedure well-tolerated. SL: [id number] Chest 1view DX Patient Name: SHAKIRA GA 02/01/2018 [facility] : 1960; Age: 57 years y/o Male MR: [id number] Study: Chest 1view DX 02/01/2018 8:40 PM [...] Doppler US Patient Name: SHAKIRA GA 03/23/2017 [facility] : 1960; Age: 56 years y/o Male MR: [id number] Study: Abdomen Doppler US 03/23/2017 11:57 AM [...] seen. Liver incompletely evaluated. Severe splenomegaly. SL: [id number] Chest wo contrast CT Clinical Indication: - RL lung mass 03/22/2017 [facility] Comparison: Chest x-ray same date TECHNIQUE: Sequential [...] of portal hypertension. TIPS stent noted. SL: [id number] Chest 1view DX Study: Chest 1view DX 03/22/2017 3:32 PM CDT 03/22/2017 [facility] Patient Name: SHAKIRA GA MR: [id number] : 1960; Age: 56 years y/o Male [...] US PROCEDURE: Ultrasound-guided diagnostic/therapeutic abdominal paracentesis. 05/22/2015 [facility] DATE OF PROCEDURE: 05/22/2015 at 14: 24 [...] then prepped and draped in standard sterile [facility] ion. Then after 1% lidocaine local anesthesia, a 5 Iranian/19-gauge sheathed catheter/needle was introduced into the pocket [...] shunt using ultrasound and fluoroscopic guidance. 05/09/2015 [facility] DATE OF PROCEDURE: 05/09/2015 INDICATION: 55-year-old male [...] the needle was exchanged for a 5 Iranian coaxial transitional dilator. The 0.018 inch wire was then exchanged for a 0.035 inch Bentson wire, and then the dilator was exchanged over the wire for a 6 Iranian vascular sheath. Then over the wire through the sheath, a 5 Iranian MPB catheter was used to obtain a [...] floppy tip was advanced through the 5 Iranian multipurpose B catheter. The multipurpose B catheter and 6 Iranian sheath were removed over the wire. A 10 Fren ch 38.5 cm was advanced over the Amplatz wire and down the hepatic vein. The Amplatz wire was removed. The introducer cannula and needle from the meebee set was advanced through the sheath into [...] An 8 mm x 4 cm of [place] balloon dilatation catheter was advanced over the wire and used to ball oon dilate the parenchymal tract. The inner dilator of the 10 Iranian sheath was then advanced over the wire and the sheath was advanced into the main portal vein. A 5 Iranian sizing pigtail catheter was advanced through the [...] vessels EXAM: LIVER US WITH DOPPLER 05/08/2015 [facility] Doppler US Center DATE: May 08, 2015 [...] The resistive indices of the hepatic artery [facility] are as follows: right RI of 0.7 [...] 1view DX PORTABLE CHEST 2015-05-08 09:49:00 05/08/2015 [facility] COMPARISON: No images to compare CLINICAL INDICATION: [...] Comments Source Systolic (mm Hg) 157 09/14/2018 [facility] Diastolic (mm Hg) 80 09/14/2018 [facility] Heart Rate 85 09/14/2018 [facility] Temperature Oral (F) 98.5 F 09/14/2018 [facility] Systolic (mm Hg) 155 09/14/2018 [facility] Diastolic (mm Hg) 74 09/14/2018 [facility] Respitory Rate 18 09/14/2018 [facility] Heart Rate 88 09/14/2018 [facility] Temperature Oral (F) 98.5 F 09/14/2018 [facility] Weight 136.818 09/14/2018 [facility] Height 182.88 cm 09/14/2018 [facility] BMI Calculated 40.91 09/14/2018 [facility] Temperature Oral (F) 97.9 F 09/14/2018 [facility] Respitory Rate 20 09/14/2018 [facility] Heart Rate 87 09/14/2018 [facility] Systolic (mm Hg) 153 09/14/2018 [facility] Diastolic (mm Hg) 74 09/14/2018 [facility] Temperature Oral (F) 98.6 F 03/20/2018 [facility] Heart Rate 110 03/20/2018 [facility] Respitory Rate 18 03/20/2018 [facility] Systolic (mm Hg) 147 03/20/2018 [facility] Diastolic (mm Hg) 72 03/20/2018 [facility] Systolic (mm Hg) 158 03/20/2018 [facility] Diastolic (mm Hg) 61 03/20/2018 [facility] Temperature Oral (F) 98.7 F 03/20/2018 [facility] Heart Rate 79 03/20/2018 [facility] Heart Rate 79 03/20/2018 [facility] Systolic (mm Hg) 146 03/20/2018 [facility] Diastolic (mm Hg) 74 03/20/2018 [facility] Temperature Oral (F) 98.3 F 03/20/2018 [facility] Respitory Rate 18 03/20/2018 [facility] Respitory Rate 18 03/20/2018 [facility] BMI Calculated 42.81 03/18/2018 [facility] Weight 143.182 03/18/2018 [facility] Height 182.88 cm 03/18/2018 [facility] Height 182.88 cm 03/18/2018 [facility] BMI Calculated 42.27 03/18/2018 [facility] Weight 141.364 03/18/2018 [facility] Respitory Rate 25 03/18/[address] [facility] Heart Rate 92 03/18/[address] [facility] Temperature Oral (F) 98.1 F 03/18/[address] [facility] Weight 150.065 03/18/[address] [facility] Systolic (mm Hg) 154 03/18/[address] [facility] Diastolic (mm Hg) 74 03/18/[address] [facility] Respitory Rate 30 03/18/[address] [facility] Heart Rate 121 03/18/[address] [facility] Temperature Oral (F) 97.9 F 02/02/2018 [facility] Systolic (mm Hg) 136 02/02/2018 [facility] Diastolic (mm Hg) 65 02/02/2018 [facility] Respitory Rate 18 02/02/2018 [facility] Heart Rate 99 02/02/2018 [facility] Heart Rate 95 02/02/2018 [facility] Temperature Oral (F) 98.1 F 02/02/2018 [facility] Systolic (mm Hg) 132 02/02/2018 [facility] Diastolic (mm Hg) 71 02/02/2018 [facility] Respitory Rate 18 02/02/2018 [facility] Respitory Rate 18 02/02/2018 [facility] Systolic (mm Hg) 117 02/02/2018 [facility] Diastolic (mm Hg) 69 02/02/2018 [facility] Heart Rate 100 02/02/2018 [facility] Temperature Oral (F) 98 F 02/02/2018 [facility] BMI Calculated 45.09 02/02/2018 [facility] Weight 151 02/02/2018 [facility] Height 183 cm 02/02/2018 [facility] Height 182.88 cm 02/02/2018 [facility] Weight 154.545 02/02/2018 [facility] BMI Calculated 46.21 02/02/2018 [facility] Systolic (mm Hg) 136 02/02/[address] [facility] Diastolic (mm Hg) 66 02/02/[address] [facility] Respitory Rate 20 02/02/[address] [facility] Temperature Oral (F) 98.8 F 02/02/[address] [facility] Systolic (mm Hg) 149 02/02/[address] [facility] Diastolic (mm Hg) 84 02/02/[address] [facility] Respitory Rate 20 02/02/[address] [facility] Systolic (mm Hg) 146 02/02/[address] [facility] Diastolic (mm Hg) 67 02/02/[address] [facility] Respitory Rate 20 02/02/[address] [facility] Temperature Oral (F) 98.9 F 02/02/[address] [facility] Heart Rate 98 02/02/[address] [facility] Temperature Oral (F) 99 F 02/02/[address] [facility] Heart Rate 97 02/02/[address] [facility] Weight 151.2 02/02/[address] [facility] Height 182.88 cm 02/02/[address] [facility] BMI Calculated 45.21 02/02/[address] [facility] Heart Rate 111 03/23/[address] [facility] Respitory Rate 20 03/23/[address] [facility] Systolic (mm Hg) 144 03/23/[address] [facility] Diastolic (mm Hg) 75 03/23/[address] [facility] Temperature Oral (F) 98.2 F 03/23/[address] [facility] Systolic (mm Hg) 145 03/23/[address] [facility] Diastolic (mm Hg) 72 03/23/[address] [facility] Respitory Rate 20 03/23/[address] [facility] Heart Rate 119 03/23/[address] [facility] Temperature Oral (F) 98.1 F 03/23/[address] [facility] Systolic (mm Hg) 136 03/23/[address] [facility] Diastolic (mm Hg) 70 03/23/[address] [facility] Respitory Rate 20 03/23/[address] [facility] Heart Rate 121 03/23/[address] [facility] Temperature Oral (F) 98 F 03/23/[address] [facility] Height 182.88 cm 03/23/[address] [facility] Weight 81.818 03/22/[address] [facility] BMI Calculated 24.46 03/22/[address] [facility] Height 182.88 cm 03/22/[address] [facility] BMI Calculated 31.43 12/18/2015 [facility] Weight 105.114 12/18/2015 [facility] Height 182.88 cm 12/18/2015 [facility] Temperature Oral (F) 97.4 F 12/18/2015 [facility] Systolic (mm Hg) 113 12/18/2015 [facility] Diastolic (mm Hg) 66 12/18/2015 [facility] Heart Rate 85 12/18/2015 [facility] BMI Calculated 29.38 10/16/2015 [facility] Weight 98.182 10/16/2015 [facility] Height 182.8 cm 10/16/2015 [facility] BMI Calculated 28.29 09/26/2015 [facility] Weight 94.602 09/26/2015 [facility] Height 182.88 cm 09/26/2015 [facility] Temperature Oral (F) 98.1 F 09/26/2015 [facility] Heart Rate 77 09/26/2015 [facility] Systolic (mm Hg) 114 09/26/2015 [facility] Diastolic (mm Hg) 68 09/26/2015 [facility] Weight 95 08/12/2015 [facility] BMI Calculated 28.43 08/12/2015 [facility] Height 182.8 cm 08/12/2015 [facility] BMI Calculated 26.22 06/05/2015 [facility] Height 182.8 cm 06/05/2015 [facility] Weight 87.6 06/05/2015 [facility] Heart Rate 82 06/05/2015 [facility] Respitory Rate 18 06/05/2015 [facility] Systolic (mm Hg) 106 06/05/2015 [facility] Diastolic (mm Hg) 65 06/05/2015 [facility] Respitory Rate 16 05/22/2015 [facility] Systolic (mm Hg) 113 05/22/2015 [facility] Diastolic (mm Hg) 63 05/22/2015 [facility] Height 182.88 cm 05/22/2015 [facility] BMI Calculated 26.77 05/22/2015 [facility] Weight 89.545 05/22/2015 [facility] Systolic (mm Hg) 105 05/22/2015 [facility] Diastolic (mm Hg) 59 05/22/2015 [facility] Weight 88.7 05/22/2015 [facility] BMI Calculated 26.54 05/22/2015 [facility] Height 182.8 cm 05/22/2015 [facility] Systolic (mm Hg) 114 05/22/2015 [facility] Diastolic (mm Hg) 63 05/22/2015 [facility] Heart Rate 78 05/22/2015 [facility] Respitory Rate 18 05/22/2015 [facility] Respitory Rate 18 05/13/2015 [facility] Systolic (mm Hg) 108 05/13/2015 [facility] Diastolic (mm Hg) 62 05/13/2015 [facility] Heart Rate 87 05/13/2015 [facility] Temperature Oral (F) 97.5 F 05/13/2015 [facility] Systolic (mm Hg) 108 05/13/2015 [facility] Diastolic (mm Hg) 63 05/13/2015 [facility] Respitory Rate 18 05/13/2015 [facility] Temperature Oral (F) 97.6 F 05/13/2015 [facility] Heart Rate 86 05/13/2015 [facility] Weight 81.636 05/13/2015 [facility] Systolic (mm Hg) 94 05/13/2015 [facility] Diastolic (mm Hg) 58 05/13/2015 [facility] Temperature Oral (F) 98.1 F 05/13/2015 [facility] Respitory Rate 18 05/13/2015 [facility] Weight 80.545 05/13/2015 [facility] Heart Rate 90 05/12/2015 [facility] BMI Calculated 22.78 05/08/2015 [facility] Weight 76.2 05/08/2015 [facility] Height 182.88 cm 05/08/2015 [facility] Encounters Location Location Encounter Encounter Reason Attending ADM DC Status Source Details Type Number For Provider Date Date Visit [facility] [id number] Ian 05/08 05/13 [facility] 7 [facility] [id number] [place] 05/22 05/23 [facility] [id number] [place] 05/22 05/22 [facility] Outpatient [facility]patient [id number] [place] 06/05 06/06 [facility] Talent 2 /2014 [facility] Outpatient [id number] Ian 08/12 08/13 [facility] Johnnie 4 [facility] Phone [id number] 09/23 09/25 [facility] Johnnie Message [facility] Outpatient [id number] Glenty 09/26 09/27 [facility] Johnnie 8 J[facility] Outpatient [id number] Sohaib 10/15 10/16 [place] Johnnie 9 [place] [facility] Outpatient [id number] Sohaib 12/17 12/18 [facility] Johnnie 3 [place] [facility] Observation [id number] [place] Whatley 03/22 03/23 Johnnie [facility] Emergency [id number] Bang Vasquez 02/02 02/02 Johnnie [facility] Observation [id number] Ian 02/02 02/02 Johnnie 1 Melly [facility] [id number] Fadi 03/18 03[facility]18 [facility] Inpatient [id number] 03/18 03/20 Johnnie [facility] Emergency [id number] Lizbet 09/14 09/14 Johnnie 2 Ruiyareji [facility] Procedures Procedure Code Date Perfomer Comments Source Abdominal [id number] 05/22/2015 [facility] paracentesis [facility] (diagnostic or therapeutic); with imaging guidance Repair of umbilical [id number] 05/12/2015 [facility] hernia Repair of umbilical [id number] 05/12/2015 [facility] Repair of umbilical [id number] 05/12/[address] [facility] hernia Repair of umbilical [id number] 05/12/2015 [facility] hernia TIPS - Transjugular [id number] 05/09/2015 [facility] intrahepatic portosystemic shunt TIPS - Transjugular [id number] 05/09/2015 [facility] portosystemic shunt TIPS - Transjugular [id number] 05/09/2015 [facility] intrahepatic portosystemic shunt TIPS - Transjugular [id number] 05/09/2015 [facility] intrahepatic portosystemic shunt Paracentesis [id number] [facility] Paracentesis [id number] [facility] Paracentesis [id number] [facility] Paracentesis [id number] [facility] Assessment and Plan Assessment and Plan Date Source Extracted from:Title: IR TIPS Revision 03/20/2018 [facility] Author: Vaughn Melendez MD Date: 03/20/18 Request for TIPS revision recieved, chart and imaging reviewed. Patient had TIPS on 05/09/2015 at [facility] for recurrent ascites, came to ED for abdominal distension and had drainage of ascites in ED. Also had one other recent paracentesis on 02/02/2018 with drainage of 9L. Liver Doppler yesterday showed possible distal stent stenosis. Evaluation and possible revision indicated. Due to Special Procedures room permanently out of commission and busy Manager Outpatient schedule, it will be difficult to get room time for procedure over next couple of days. We will try to work in [facility], but [facility] other less elective and previously scheduled procedures [...] Recommend f/u w established hepatology clinic at [facility] for TIPS revision (IR unit down at [facility] today) . No SBP per labs. Extracted [...] clinical improvement Extracted from:Title: Clinical Document 02/02/2018 [facility] Author: Faizan Han MD Date: 02/02/18 Discharge Summary [facility] Faizan Han MD Discharge Diagnosis: 1. [...] One Time Meds (3): 02/01/18 (Completed) acetaminophen-hydrocodone ([place] 5/325 oral tablet) 1 tab PO ONCE 02/01/18 (Completed) furosemide (Lasix) 80 mg IVP ONCE 02/01/18 (Completed) levofloxacin 500 mg IVPB ONCE 100 ml/hr Continuous Infusions: None Extracted from:Title: patient refused to be upgraded 03/23/2017 [place] Author: Austin Whatley DO Date: 03/23/17 Patient [...] Document Author: Rick Parikh MD Date: 03/23/17 [facility] Initial Cardiology Consultation Note Reason [...] April 2015. 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 EKG [...] The nursing staff will be contacting the cable tool operator. The patient will be transferred to [facility] given his significant dyspnea. The plan discussed in detail the patient. All questions answered. He is in agreement the plan. We will continue to follow. Continuous Infusions: None Scheduled Meds (7): 03/23/17 azithromycin 500 mg PO [id number] 03/23/17 cefTRIAXone + sodium chloride 0.9% INJ 100 mL 1 gm IVPB [id number] 200 ml /hr 03/23/17 furosemide (Lasix) 60 mg IVP Q12H 03/23/17 lactulose (lactulose 10 g/15 mL oral syrup) 20 gm PO BID 03/23/17 levalbuterol (Xopenex) 0.63 mg NEB RQID 03/23/17 methylPREDNISolone (methylPREDNISolone SODium SUCCinate) 40 mg IVP Q12H 03/23/17 spironolactone 100 mg PO TID Extracted from:Title: Hepatology Discharge Summary * 05/13/2015 [facility] Author: Jericho Agrawal MD Date: 05/13/15 Discharge [...] Transplant Surgery Progress Note Author: Aida Guillen PAVING SUPERVISOR PAVING SUPERVISOR Date: 05/13/15 Assessment/Plan S/P umbilical hernia repair, [...] Over the needle catheter Jericho Agrawal MD [facility] Internal Medicine PGY 1 Pager [phone] I discussed the case, reviewed records and [...] History Date Source Social History TypeResponse 05/08/2015 [facility] Substance Abuse Use: None. Alcohol Past, Previous [...] Cessation Counseling Yes Social History TypeResponse 05/08/2015 [facility] Substance Abuse Use: None. Alcohol [...] Cessation Counseling Yes Social History TypeResponse 05/08/[address] [facility] Substance Abuse Use: None. Alcohol Past, [...] entered on: 09/14/18 Social History TypeResponse 05/08/2015 [facility] Substance Abuse Use: None. Alcohol Past, [...]
[2019-03-16 10:24] VITALS: BP 145/56; TEMP 97.6; O2SAT 97; BMI 43.5
--- NOTE | 2019-03-16 13:13 | RAD REPORT ---
EXAM DESCRIPTION: US - Paracentesis Proc Guidance - 03/16/2019 12:11 pm CLINICAL HISTORY: Liver disease with ascites FINDINGS: The risks, benefits and alternatives to the procedure were explained to the patient and in formed consent obtained. Ultrasound demonstrates a small to moderate amount of ascites within the abdomen and pelvis. The skin and subcutaneous tissues were anesthetized with Lidocaine. Under sonographic guidance an 8 F rench catheter was placed into the right lower quadrant. 5 cc of yellow ascites was aspirated. The ca theter was then advanced. No additional fluid could be removed. The catheter was then slowly withdraw n applying suction. No additional ascites was removed. Using the same location a second 8 Welsh catheter was placed into the right lower quadrant. Again 5 cc of yellow fluid was aspirated. When the needle was withdrawn and the catheter advanced no addition al fluid could be removed. The catheter was slowly withdrawn and suction was applied. No additional f luid could be aspirated Given the relatively small amount of ascites present no additional attempts were performed. The patient experienced no immediate complication. IMPRESSION: Ultrasound reveals a small to moderate amount of ascites. However early a small amount o f ascites was able to be aspirated. It is recommended that the patient have an ultrasound in approxim ately 3 weeks to reassess the ascites. If the amount of fluid has increased then a paracentesis can b e performed
== END 2019-03-16 12:30 | disposition home or self-care (01) ==
LOC: DS 09:59
PROVIDERS: ATTEND Internal Medicine Gastroenterology
DX: R18.8 Other ascites (principal)
CPT/HCPCS: 49083